=== PATIENT | male | born 1950 | race Caucasian/White ===

== ENCOUNTER 2017-01-27 19:08 | Inpatient (IN) | payer MEDICARE, MEDICAID ==
--- NOTE | 2017-01-27 19:34 | ED Physician Chart ---
Chief Complaint/HPI - Patient Information Date Seen:: 01/27/17 Time Seen:: 19:20 Chief Complaint:: suicidal ideation History of Present Illness:: Patient is a resident of a snf facility. He is apparently expressed a desire to commit suicide several times. [facility] Histor[facility]:: Patient Review:: Nurse's Note Reviewed, Transfer documents Reviewed Review of Systems - Review of Systems General/Constitutional: No fever, No chills Skin: No skin lesions Head: No headache Eyes: No loss of vision ENT: No earache Neck: No neck pain Cardio Vascular: No chest pain, No palpitations Pulmonary: No SOB GI: No nausea, No vomiting G/U: No dysuria, No frequency Musculoskeletal: No bone or joint pain Endocrine: No polyuria Psychiatric: Prior psych history, Depression Past Medical History - Past Medical History Past Medical History: HTN, DM, CHF, Asthma/COPD, CVA/TIA, PUD/GERD, Dementia, Other (anxiety; status post pneumonia; major depression; psychosis; anxiety) Family History: Other (not available) Social History: Non Smoker, No Alcohol Surgical History: other (right hip replacement) Psychiatricy History: Depression, Dementia Medication: Reviewed Family Medical History - Family Member Mother History Unknown: Yes Physical Exam - Physical Examination General/Constitutional: Well-developed, well-nourished, Alert, No distress, Non- toxic appearing Other Gen/Cons comments:: Alert and oriented to the coorect year only Head: Atraumatic Eyes: Lids, conjuctiva normal, PERRL Skin: Nl inspection, No rash, No skin lesions, No ecchymosis ENMT: External ears, nose nl, Nasal exam nl, Lips, teeth, gums nl Other ENMT comments:: Edentulous with lower dentures Neck: No nuchal rigidity Respiratory: Nl effort/Exclusion, Clear to Auscultation, No Wheeze/Rhonchi/Rales Cardio Vascular: RRR, No murmur, gallop, rubs GI: No tenderness/rebounding/guarding, No organomegaly, Normal BS's Other GI comments:: Abdomen distended; no hernia present : No CVA tenderness Extremities: Normal digits & nails Other Neuro/Psych comments:: Left-sided paralysis Labs/Radiology/EKG Results - Lab Results Results: Laboratory Results - last 24 hr 01/27/17 01/27/17 19:43 19:43 WBC 11.3 H RBC 5.11 Hgb 14.8 Hct 45.9 MCV 90.0 MCH 29.0 MCHC Differential 32.2 RDW 13.5 Plt Count 222 MPV 7.6 Neutrophils % 69.1 Lymphocytes % 24.6 Monocytes % 5.3 Eosinophils % 0.8 Basophils % 0.2 Sodium 135 L Potassium 4.1 Chloride 100 Carbon Dioxide 29.8 Anion Gap 9.3 BUN 18 Creatinine 0.8 Est GFR ( Amer) > 60.0 Est GFR (Non-Af Amer) > 60.0 BUN/Creatinine Ratio 22.5 Glucose 290 H Calcium 9.5 Total Bilirubin 0.5 AST 10 L ALT 12 Alkaline Phosphatase 62 Total Protein 6.2 Albumin 3.7 L Globulin 2.5 Albumin/Globulin Ratio 1.5 Laboratory Results - last 24 hr 01/27/17 01/27/17 19:43 19:43 WBC 11.3 H RBC 5.11 Hgb 14.8 Hct 45.9 MCV 90.0 MCH 29.0 MCHC Differential 32.2 RDW 13.5 Plt Count 222 MPV 7.6 Neutrophils % 69.1 Lymphocytes % 24.6 Monocytes % 5.3 Eosinophils % 0.8 Basophils % 0.2 Sodium 135 L Potassium 4.1 Chloride 100 Carbon Dioxide 29.8 Anion Gap 9.3 BUN 18 Creatinine 0.8 Est GFR ( Amer) > 60.0 Est GFR (Non-Af Amer) > 60.0 BUN/Creatinine Ratio 22.5 Glucose 290 H Calcium 9.5 Total Bilirubin 0.5 AST 10 L ALT 12 Alkaline Phosphatase 62 Total Protein 6.2 Albumin 3.7 L Globulin 2.5 Albumin/Globulin Ratio 1.5 - Radiology Results Results: CXR: cardiomegaly; no infiltrate - EKG Interpretations Rate & Rhythm: NSR rate 64 [place]: normal Comments:: RBBB Assessment - Assessment General Assessment: Etiology of the patient's leukocytosis is uncertain ED Septic Shock - . Is Septic Shock (SBP<90, OR Lactate>4 mmol\L) present?: No Reassessment (Disposition) - Reassessment Reassessment Condition:: Unchanged - Diagnosis Diagnosis:: suicidal ideation; diabetes; hyperglycemia; leukocytosis - Patient Disposition Admitted to:: [facility] Admitting Medical Physician:: Prieto Linares Admitting Psych Physician:: Nakul Curry Condition at Disposition:: Stable, Unchanged
[2017-01-27 19:52] LABS: % BASOPHILS 0.2 % (0.0-2.0); % EOSINOPHILS 0.8 % (0.0-5.0); % LYMPHOCYTES 24.6 % (20.0-50.0); % MONOCYTES 5.3 % (2.0-10.0); % NEUTROPHILS 69.1 % (40.0-80.0); HEMATOCRIT 45.9 % (39.0-49.0); HEMOGLOBIN 14.8 gm/dL (12.6-17.4); MEAN CORPUSCULAR HGB CONC 32.2 pg (28.0-36.0); MEAN PLATELET VOLUME 7.6 fl; NEUTROPHILE ABSOLUTE 7.8 Th/cmm (1.8-8.0); PLATELET COUNT 222 Th/cmm (150-400); RED BLOOD COUNT 5.11 Mil/cmm (3.80-5.80); RED CELL DISTRIBUTION WIDTH 13.5 % (11.5-20.0); WHITE BLOOD COUNT 11.3 Th/cmm (4.8-10.8)
[2017-01-27 20:08] LABS: ALB/GLOB RATIO 1.5 (1.0-1.8); ALKALINE PHOSPHATASE 62 U/L (34-104); ANION GAP 9.3 (7.0-16.0); BILIRUBIN,TOTAL 0.5 mg/dL (0.3-1.0); BUN - UREA NITROGEN 18 mg/dL (7-25); BUN/CREATININE RATIO 22.5; CALCIUM SERUM 9.5 mg/dL (8.6-10.3); CARBON DIOXIDE 29.8 mEq/L (21.0-31.0); CHLORIDE 100 mEq/L (98-107); CREATININE - SERUM 0.8 mg/dL (0.7-1.3); GLUCOSE 290 mg/dL (70-105); POTASSIUM SERUM 4.1 mEq/L (3.5-5.1); SGOT 10 U/L (13-39); SGPT/ALT 12 U/L (7-52); SODIUM SERUM 135 mEq/L (136-145)
[2017-01-27 21:47] LABS: URINE BILIRUBIN NEGATIVE (NEGATIVE); URINE COLOR YELLOW; URINE GLUCOSE (UA) 500 mg/dL (NEGATIVE); URINE KETONE TRACE mg/dL (NEGATIVE)
[2017-01-27 21:48] LABS: URINE BLOOD NEGATIVE (NEGATIVE); URINE PH 6.5; URINE PROTEIN NEGATIVE (NEGATIVE); URINE RBC NONE SEEN /hpf (0-5); URINE UROBILINOGEN 0.2 E.U./dL (0.2 - 1.0)
[2017-01-27 21:49] LABS: URINE AMORPHOUS SEDIMENT FEW URATES (NONE SEEN); URINE BACTERIA FEW /hpf (NONE SEEN); URINE EPITHELIAL CELLS OCCASIONAL /lpf (FEW)
[2017-01-27] MEDS ORDERED: Albuterol Nebulizer 2.5mg/3mL HHN PRN (23:22)
[2017-01-27] MEDS ORDERED: Hydrocodone/APAP 10 mg/325 mg Tab PO PRN (23:22)
[2017-01-27] MEDS ORDERED: Ipratropium Neb 0.5 mg/2.5 mL UD HHN PRN (23:22)
[2017-01-27 23:27] VITALS: BP 131/84
[2017-01-27] MEDS: Ipratropium Neb 0.5 mg/2.5 mL UD HHN SCH (23:56)
[2017-01-28] MEDS: INSULIN ASPART SLIDING SCALE 100 UNITS/ML UNIT SUBQ SCH ×4 (06:43→20:59)
[2017-01-28] MEDS: Ipratropium Neb 0.5 mg/2.5 mL UD HHN SCH ×3 (07:31→18:47)
[2017-01-28] MEDS: Multivitamin w/ Minerals Tab PO SCH (09:25)
[2017-01-28] MEDS: Pantoprazole 40 mg EC Tab PO SCH (09:25)
[2017-01-28] MEDS: Lactobacillus Rhamnosus 10 Billion CFU Capsule PO SCH (09:25)
--- NOTE | 2017-01-28 10:04 | Diagnostic Imaging Report ---
CHEST X-RAY: AP view INDICATION: CHF COMPARISON: None FINDINGS: Small left effusion is noted. No evidence of gabrielle CHF. Increased left basal lung markings are noted. Mild cardiomegaly is noted. Degenerative changes of the spine and shoulders are noted. IMPRESSION: Small left effusion. Increased left basal lung markings are seen favoring atelectasis versus chronic changes. Infiltrate is less likely. No evidence of gabrielle CHF. Cardiomegaly and atherosclerotic vascular disease.
[2017-01-28] MEDS: Atorvastatin Calcium 10 MG TAB PO SCH (20:52)
[2017-01-28] MEDS: Insulin Detemir 100 units/mL 10mL Vial SUBQ SCH (21:00)
[2017-01-29] MEDS: Ipratropium Neb 0.5 mg/2.5 mL UD HHN SCH ×4 (00:30→18:38)
--- NOTE | 2017-01-29 01:16 | History & Physical ---
ADMIT DATE: 01/28/2017 HISTORY OF PRESENT ILLNESS: The patient is a 66-year-old male with history of diabetes mellitus, hypertension, dementia, hyperlipidemia, was transferred [facility] to [facility] with acute confusion, agitation, evaluated by the ER physician. Initial workup significant for psychosis, admitted to [facility] for more evaluation and treatment. Dr. Curry consulted on the case. The patient is a good historian. PAST MEDICAL HISTORY: Significant for hypertension, diabetes mellitus, hyperlipidemia and dementia. PAST SURGICAL HISTORY: No surgeries. ALLERGIES: None. MEDICATIONS: Follow admission reconciliation. SOCIAL HISTORY: No smoking, alcohol or drugs. FAMILY HISTORY: Noncontributory. REVIEW OF SYSTEMS: RENAL SYSTEM: No history of chronic renal disorder. CARDIOVASCULAR SYSTEM: He has history of hypertension. ENDOCRINE SYSTEM: History of diabetes mellitus. GASTROINTESTINAL SYSTEM: No upper or lower gastrointestinal bleed. NEUROLOGICAL SYSTEM: History of dementia. PHYSICAL EXAMINATION: GENERAL: He is awake, alert, not fully oriented. VITAL SIGNS: Temperature 98, heart rate 78, blood pressure 132/70. HEENT: Normocephalic. Pupils reacting to light and accommodation. Sclerae clear. NECK: Supple. Negative for lymphadenopathy, JVD or bruit. CHEST: Bilaterally normal. No rhonchi or wheezing. HEART: S1, S2 normal. No murmur or gallop. ABDOMEN: Soft, bowel sounds positive. EXTREMITIES: No edema. NEUROLOGIC: Awake, not fully oriented. No focal motor or sensory deficits. Cranial nerves 2-12 is intact. ASSESSMENT: 1. Diabetes mellitus. 2. Hypertension. 3. Hyperlipidemia. 4. Dementia. PLAN: The patient was admitted to the hospital under Dr. Curry's service. ____ PROBLEMS TO BE ATTENDED DURING HOSPITALIZATION: Dementia, psychosis. MEDICAL PROBLEMS ____, diabetes mellitus, hypertension, hypothyroidism. The patient is medically stable for activity. Thank you, Dr. Curry for asking me to see the patient. JOB# [id number]
--- NOTE | 2017-01-29 08:11 | Psychosocial Evaluation ---
DATE OF SERVICE: 01/28/2017 JUSTIFICATION FOR HOSPITALIZATION: The patient is brought in on a 5150 hold, aggressive, agitated, making suicidal statements. CHIEF COMPLAINT: "I told my brother I wanted to kill myself." HISTORY OF PRESENT ILLNESS: A 66-year-old male with history of depression, PTSD, brought in because he was aggressive towards staff, making suicidal statements. The patient with cognitive decline, acting strange at the retirement, agitated, verbal towards staff. Staff could not control his behaviors. The patient attests to depression, states he feels sad, upset, angry, alludes to significant trauma history PAST PSYCHIATRIC HISTORY: Cognitive decline, depression, PTSD. FAMILY HISTORY: Noncontributory. SOCIAL HISTORY: The patient was born in [place], 4 times, now . He does not have any idea how many kids he has. 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 MEDICATIONS: Reviewed. MENTAL STATUS EXAMINATION: Stated age, unkempt. Speech within normal limits, appearing odd. Mood "okay." Affect upset. Thought processes were somewhat disoriented. The patient attests to SI, no HI. No overt psychotic symptoms. Poor insight, poor judgment, poor impulse control. PROVISIONAL DIAGNOSES: Major depression, recurrent; post-traumatic stress disorder; anxiety, unspecified; likely dementia. MEDICAL: Please see full H and P. The patient under the care of Dr. Linares ESTIMATED LENGTH OF STAY: 7-10 days. ASSESSMENT: The patient requiring inpatient hospitalization, suicidal, upset, depressed, combative at the retirement. PLAN: We will continue to monitor and titrate medications. TREATMENT PLAN: Includes group as well as milieu therapy. CONDITIONS FOR DISCHARGE: Improved mood, improved affect, cessation of any SI, better control of any aggressive symptoms. [facility]# [id number] [facility]
[2017-01-29] MEDS: Multivitamin w/ Minerals Tab PO SCH (09:01)
[2017-01-29] MEDS: Lactobacillus Rhamnosus 10 Billion CFU Capsule PO SCH (09:01)
[2017-01-29] MEDS: Pantoprazole 40 mg EC Tab PO SCH (09:03)
[2017-01-29] MEDS: INSULIN ASPART SLIDING SCALE 100 UNITS/ML UNIT SUBQ SCH ×4 (09:09→20:53)
--- NOTE | 2017-01-29 19:05 | Progress Notes ---
DATE: 01/29/2017 SUBJECTIVE: The patient was seen, chart reviewed, and discussed with staff. The patient remains angry, upset. 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 ASSESSMENT: The patient remains symptomatic, telling bizarre stories, angry, upset, depressed, was making suicidal statements. PLAN: The patient is not safe for discharge. We will continue to monitor and titrate medications. Current medications were reviewed. He is currently on a low dose Risperdal. We will increase Risperdal today to 1 mg. We will continue to monitor closely. [facility]# [id number]
[2017-01-29] MEDS: Atorvastatin Calcium 10 MG TAB PO SCH (20:32)
[2017-01-29] MEDS: Insulin Detemir 100 units/mL 10mL Vial SUBQ SCH (20:53)
--- NOTE | 2017-01-29 21:38 | Admit Criteria Form ---
Admit Criteria Forms - Admit Criteria Diagnosis: PSYCHIATRIC DISORDERS (Place 'X' for any and all applicable criteria): Ongoing inpatient care may be needed for 1 or more of the following(1)(2)(3)(4)( 6)(7)(8): [X ]I. Danger to self or others not manageable at lower level of care. [ ]II. Grave disability (eg, inability to perform self care necessary at lower level of care) [ ]III. Agitation or inappropriate behavior interfering with care for primary condition (eg, attempting to discontinue lines or drains prematurely, unable to cooperate with respiratory care) [ ]IV. Severe disability or disorder indicated by ALL of the following: [ ]a) Severe behavioral health disorder-related symptoms or condition indicated by 1 or more of the following: [ ]i) Severe problem with cognition, memory, judgment, or impulse control [ ]ii) Severe clinical manifestations (eg, hallucinations, delusions, other acute psychotic symptoms, jeaneth, extreme agitation or anxiety) [ ]b) Patient management at lower level of care is not feasible until acute intervention or modification is initiated. Extended stay beyond goal length of stay for the primary condition may be needed until ALLof the following are present(1)(2)(3)(4)7)06)(23): [ ]a) Danger to self or others is absent or manageable at lower level of care [ ]b) Behavior crisis management, including physical or chemical restraints, is required and is not available at a lower level of care. [ ]c) Behavioral symptoms (e.g., agitation, somnolence, inappropriate behavior) are present, and are not manageable at a lower level of care. [ ]d) Patient cannot understand follow-up treatment and crisis plan. [ ]e) Provider and supports are sufficiently available at lower level of care. [ ]f) Patient can participate (e.g., verify absence of plan for harm) and is in needed of monitoring. The original [facility] [employer] content created by [facility] has been revised. The portions of the content which have been revised are identified through the use of italic text or in bold, and [facility] has neither reviewed nor approved the modified material. All other unmodified content is copyright [facility]. Please see references footnoted in the original [facility] edition 2017 Admit Criteria Met?: Yes
[2017-01-30] MEDS: Ipratropium Neb 0.5 mg/2.5 mL UD HHN SCH ×4 (00:56→18:30)
[2017-01-30] MEDS: INSULIN ASPART SLIDING SCALE 100 UNITS/ML UNIT SUBQ SCH ×4 (06:42→20:38)
[2017-01-30] MEDS: Lactobacillus Rhamnosus 10 Billion CFU Capsule PO SCH (10:20)
[2017-01-30] MEDS: Pantoprazole 40 mg EC Tab PO SCH (10:21)
[2017-01-30] MEDS: Multivitamin w/ Minerals Tab PO SCH (10:21)
[2017-01-30] MEDS: Atorvastatin Calcium 10 MG TAB PO SCH (20:27)
[2017-01-30] MEDS: Insulin Detemir 100 units/mL 10mL Vial SUBQ SCH (20:37)
--- NOTE | 2017-01-30 21:02 | Progress Notes ---
DATE: 01/30/2017 SUBJECTIVE: The patient was seen, chart reviewed, and discussed with staff. The patient remains upset, symptomatic, irritable, still with some confusion, keeps asking and ruminating about [facility], wants to go back to [facility]. Seems to be improving. Suicidal ideations seem to be decreasing. He has not mentioned any suicidal thoughts, but he remains loud, sometimes agitated, sometimes verbally aggressive, continued safety concerns, continued concerns about his ability to function at a lower level of care at [facility]. He seems to be sleeping well, eating well, and taking his medications. ASSESSMENT: The patient with some improvement noted, but remains symptomatic, still agitated, yelling, verbally aggressive, upset, and depressed. PLAN: We will continue to monitor given the patient's confusional state and his agitation. We will continue inpatient hospitalization. We add Namenda to his regimen as well. [facility]# [id number]
[2017-01-31] MEDS: Ipratropium Neb 0.5 mg/2.5 mL UD HHN SCH ×3 (06:47→18:50)
[2017-01-31] MEDS: INSULIN ASPART SLIDING SCALE 100 UNITS/ML UNIT SUBQ SCH ×4 (07:04→20:55)
[2017-01-31] MEDS ORDERED: Insulin Detemir 100 units/mL 10mL Vial SUBQ SCH (09:00)
[2017-01-31] MEDS: Lactobacillus Rhamnosus 10 Billion CFU Capsule PO SCH (10:01)
[2017-01-31] MEDS: Multivitamin w/ Minerals Tab PO SCH (10:02)
[2017-01-31] MEDS: Pantoprazole 40 mg EC Tab PO SCH (10:02)
[2017-01-31] MEDS: Atorvastatin Calcium 10 MG TAB PO SCH (20:46)
[2017-01-31] MEDS: Insulin Detemir 100 units/mL 10mL Vial SUBQ SCH (20:57)
[2017-02-01] MEDS: Ipratropium Neb 0.5 mg/2.5 mL UD HHN SCH ×4 (01:23→19:34)
--- NOTE | 2017-02-01 04:24 | Progress Notes ---
DATE: 01/31/2017 SUBJECTIVE: The patient seen, chart reviewed, discussed with staff. The patient remains upset, irritable, still with some confusion, ____. He has been taking medications, struggling with physical therapy. Eating fairly well. Sleeping fairly well, seems to be getting along better with staff and peers, still verbally aggressive at times, taking his medications. No side effects. ASSESSMENT: The patient is calmer, more cooperative, still with safety concerns, however. Medications reviewed, recent to increase the Risperdal seems to be tolerating well. PLAN: We will continue to monitor and followup. [facility]# [id number]
[2017-02-01] MEDS: INSULIN ASPART SLIDING SCALE 100 UNITS/ML UNIT SUBQ SCH ×4 (06:42→21:03)
[2017-02-01] MEDS: Lactobacillus Rhamnosus 10 Billion CFU Capsule PO SCH (10:22)
[2017-02-01] MEDS: Pantoprazole 40 mg EC Tab PO SCH (10:22)
[2017-02-01] MEDS: Multivitamin w/ Minerals Tab PO SCH (10:23)
[2017-02-01] MEDS: Insulin Detemir 100 units/mL 10mL Vial SUBQ SCH (21:01)
[2017-02-01] MEDS: Atorvastatin Calcium 10 MG TAB PO SCH (21:01)
[2017-02-02] MEDS: Ipratropium Neb 0.5 mg/2.5 mL UD HHN SCH ×2 (01:16→07:33)
[2017-02-02] MEDS: INSULIN ASPART SLIDING SCALE 100 UNITS/ML UNIT SUBQ SCH ×2 (07:54→12:12)
[2017-02-02] MEDS: Multivitamin w/ Minerals Tab PO SCH (08:50)
[2017-02-02] MEDS: Pantoprazole 40 mg EC Tab PO SCH (08:50)
[2017-02-02] MEDS: Lactobacillus Rhamnosus 10 Billion CFU Capsule PO SCH (08:50)
[2017-02-02] MEDS ORDERED: Ipratropium Neb 0.5 mg/2.5 mL UD HHN SCH (13:00)
== END 2017-02-02 15:15 | disposition home or self-care (01) | DRG 885 ==
LOC: ER 19:08 → GERO 22:02
PROVIDERS: ADMIT Psychiatry & Neurology Psychiatry; ATTEND Psychiatry & Neurology Psychiatry
DX: F33.9 Major depressive disorder, recurrent, unspecified (principal); R45.851 Suicidal ideations; F03.90 Unspecified dementia, unspecified severity, without behavioral disturbance, psychotic disturbance, mood disturbance, and anxiety; I11.0 Hypertensive heart disease with heart failure; I50.9 Heart failure, unspecified; F43.10 Post-traumatic stress disorder, unspecified; F41.9 Anxiety disorder, unspecified; E78.5 Hyperlipidemia, unspecified; J44.9 Chronic obstructive pulmonary disease, unspecified; K21.9 Gastro-esophageal reflux disease without esophagitis; F29 Unspecified psychosis not due to a substance or known physiological condition; E11.65 Type 2 diabetes mellitus with hyperglycemia; D72.829 Elevated white blood cell count, unspecified; E03.9 Hypothyroidism, unspecified; Z96.641 Presence of right artificial hip joint; Z86.73 Personal history of transient ischemic attack (TIA), and cerebral infarction without residual deficits; Z87.01 Personal history of pneumonia (recurrent)
CPT/HCPCS: 36415-UA; 71010-TC; 80053-TC; 81001-TC; 82948-90; 83036-90; 84443-TC; 85025-TC; 86592-TC; 90779; 93005; 94640; 94760; 97530; J1815; X3401; X3904; Z7610

== ENCOUNTER 2019-05-04 18:55 | Inpatient (IN) | payer MEDICARE, MEDICAID ==
[2019-05-04 22:37] VITALS: BP 101/62
[2019-05-04] MEDS ORDERED: Magnesium Hydroxide (MOM) 30 mL UDC PO PRN (22:58)
[2019-05-04] MEDS ORDERED: Maalox 30 mL Cup PO PRN (22:58)
[2019-05-05] MEDS: Multivitamin Tab PO SCH (08:26)
[2019-05-05] MEDS ORDERED: GLUCAGON HCl 1 MG KIT IM PRN (20:25)
[2019-05-05] MEDS ORDERED: Dextrose 50% 50 mL Abboject IVP PRN (20:25)
[2019-05-05] MEDS: INSULIN LISPRO SLIDING SCALE 100 UNITS/ML UNIT SUBQ SCH (21:00)
[2019-05-05] MEDS: Carbidopa/Levodopa 10/100 mg Tab PO SCH (21:36)
--- NOTE | 2019-05-06 06:03 | Consultation ---
DATE OF CONSULTATION: 05/05/2019 INITIAL PSYCHIATRIC EVALUATION, Covering for Dr. Curry. HISTORY OF PRESENT ILLNESS: A 68-year-old male with an unknown previous psychiatric intervention, history of dementia, was brought in here after the patient was sexually inappropriate, increased agitated and yelling out. Today on [id number] evaluation, the patient ____ very uncooperative with the interview, does not give much information, reported he does not know why he is here. His neighbor got mad at him, but does not want to elaborate what happened, becomes very angry on further questioning, The patient is irritable, agitated state, limited historian overall. ALLERGIES TO MEDICATIONS: NKDA. CURRENT MEDICATIONS: Insulin, lactobacillus, magnesium, Namenda, metoprolol, multivitamins, Protonix, Aricept 5 mg twice a day, Depakote, Cranberry, Coreg. PAST PSYCHIATRIC HISTORY: Dementia. PAST MEDICAL HISTORY: Diabetes, AFib, type 2 diabetes, status post previous hip surgery. LEGAL HISTORY: Denied. MENTAL STATUS EXAMINATION: He is in bed, irritable, refusing to be interviewed with further questions, poor historian overall, at times suspicious. Poor insight, poor judgment, refused to answer questions in regards to immediate, recent and remote memory. ASSESSMENT AND PLAN: A 68-year-old male with history of dementia, brought in here after placed on a 5150 ____ for being physically and sexually aggressive. We will continue with Namenda at 10 mg once a day, Aricept. We will obtain more collateral baseline information and assess the need for a mood stabilizer/antipsychotic. [facility]# [id number]
[2019-05-06] MEDS: Pantoprazole 40 mg EC Tab PO SCH (06:45)
[2019-05-06] MEDS: INSULIN LISPRO SLIDING SCALE 100 UNITS/ML UNIT SUBQ SCH ×4 (07:02→20:55)
[2019-05-06] MEDS: Multivitamin Tab PO SCH (08:18)
[2019-05-06] MEDS: Carbidopa/Levodopa 10/100 mg Tab PO SCH ×4 (08:18→20:55)
[2019-05-06] MEDS: Apixaban 5 MG TABLET PO SCH ×2 (08:18→16:17)
--- NOTE | 2019-05-06 15:58 | History & Physical ---
ADMIT DATE: 05/04/2019 CHIEF COMPLAINT: Agitation. HISTORY OF PRESENT ILLNESS: A 68-year-old male with past medical history significant for dementia and parkinsonism, who presents with agitation and aggressive behavior. The patient was sent initially to [facility] for medical clearance. He was found to have atrial fibrillation with rapid ventricular rate and admitted for further treatment and care. The patient was sent to psychiatric facility once medically cleared. The patient is resting in bed. He is awake and alert. He is very [facility]. Denies any medical complaints. The patient is a poor historian. PAST MEDICAL HISTORY: The patient has history of atrial fibrillation, CVA with left hemiplegia, diabetes mellitus, dementia, hyperlipidemia, parkinsonism. MEDICATIONS: As per reconciliation. ALLERGIES: No known drug allergies. SOCIAL HISTORY: No tobacco, alcohol or illicit drug use. The patient is a resident of [facility]. FAMILY HISTORY: Noncontributory. REVIEW OF SYSTEMS: IMMUNOLOGIC: No recurrent infection. CARDIOVASCULAR: No heart disease or hypertension. GASTROINTESTINAL: No nausea, vomiting or diarrhea. ENDOCRINE: The patient is diabetic. No thyroid disorder. NEUROLOGIC: The patient has had a stroke. No seizure. HEMATOLOGIC: No bleeding or clotting disorder. PHYSICAL EXAMINATION: GENERAL: The patient is awake and alert, in no acute distress. VITAL SIGNS: Temperature 98.0, pulse 105, respirations 20, blood pressure 120/61. HEENT: Pupils equally round, anicteric sclerae. NECK: Supple. No JVD, mass or bruit. LUNGS: Clear to auscultation. HEART: S1, S2, regular rate and rhythm. ABDOMEN: Soft, nontender, positive bowel sounds. EXTREMITIES: No clubbing, cyanosis. The patient has trace edema to left lower extremity. NEUROLOGIC: The patient has left-sided hemiplegia. ASSESSMENT: 1. Psychosis. 2. Dementia. 3. Diabetes mellitus. 4. Cerebrovascular accident. 5. Chronic atrial fibrillation. 6. Parkinsonism. 7. Hyperlipidemia. PLAN: The patient has been admitted to the Psychiatry Service for further treatment and evaluation. The patient is to continue his medications as per transfer orders. We will monitor the patient's blood pressure and blood sugar as well as heart rate. The patient is on Lopressor for rate control. He is medically cleared to participate in activity and can return back to [facility] once cleared from a psychiatric point of view. [facility]# [id number]
--- NOTE | 2019-05-06 21:50 | Progress Notes ---
DATE: 05/06/2019 SUBJECTIVE: The patient was seen and evaluated. The patient's chart reviewed. This is a psychiatric followup note. Covering for Dr. Curry. Overnight nursing staff reported the patient has intermittent yelling, screaming. Today on [id number] evaluation, the patient continues to perseverate about going home that the clothing are going to be stolen. After I discussed with the patient, further monitoring needed, he becomes very irritable and started yelling and screaming nonsensical statements. MENTAL STATUS EXAMINATION: Irritable, agitated, impulsive, unpredictable and verbally aggressive. ASSESSMENT AND PLAN: The patient is a 68-year-old male with a history of dementia with behavior disturbances, who has dementia and cognitive impairment, impairs the ability to provide the ability to rationally understand his emotions resulting in aggressive behavior. He is currently on Aricept 10 mg a day and also Namenda 10 mg, awaiting labs, assessing the patient's renal function prior to increasing the Namenda, as they would also help alleviate the disturbances. JOB# [id number]
[2019-05-07] MEDS: INSULIN LISPRO SLIDING SCALE 100 UNITS/ML UNIT SUBQ SCH ×4 (06:37→21:33)
[2019-05-07] MEDS: Pantoprazole 40 mg EC Tab PO SCH (06:38)
[2019-05-07] MEDS: Multivitamin Tab PO SCH (08:38)
[2019-05-07] MEDS: Apixaban 5 MG TABLET PO SCH ×2 (08:39→17:14)
[2019-05-07] MEDS: Carbidopa/Levodopa 10/100 mg Tab PO SCH ×4 (08:39→21:33)
--- NOTE | 2019-05-07 21:24 | General Progress Note ---
Subjective - Review of Systems Service Date: 05/07/19 Subjective: RESTING COMFORTABLY IN BED NO DISTRESS Objective - Results Recent Labs: Laboratory Last Values POC Glucose 125 MG/DL (70 - 105) H 05/07/19 20:05 - Physical Exam Vitals and I&O: Vital Signs Temp 97.6 F 05/07/19 20:08 Pulse 103 05/07/19 20:08 Resp 20 05/07/19 20:08 BP 124/58 05/07/19 20:08 Pulse Ox 96 05/07/19 20:08 Intake & Output 05/07/19 05/07/19 05/08/19 06:59 18:59 06:59 Intake Total 300 800 240 Output Total 1 1 Balance 299 800 239 Intake: Oral 300 800 240 Output: Urine/Stool Mix 1 1 Other: # Voids 1 3 1 # Bowel Movements 2 0 1 Stool Characteristics Soft Soft Active Medications: Current Medications Acetaminophen (Tylenol) 650 mg PO Q4HR PRN PRN Reason: Mild Pain / Temp above 100 Stop: 07/03/19 22:57 Last Admin: 05/07/19 01:12 Dose: 650 mg Al Hydrox/Mg Hydrox/Simethicone (Maalox) 30 ml PO Q4H PRN PRN Reason: GI DISTRESS Stop: 07/03/19 22:57 Atorvastatin Calcium (Lipitor) 40 mg PO HS [facility]; Protocol Stop: 07/04/19 20:59 Last Admin: 05/06/19 20:54 Dose: 40 mg Carbidopa/Levodopa (Sinemet 10 Mg-100 Mg) 1 tab PO QID [facility] Stop: 07/04/19 20:59 Last Admin: 05/07/19 17:15 Dose: 1 tab Dextrose (D50w) 50 ml IVP PRN PRN PRN Reason: Blood Glucose less than 70 Stop: 07/04/19 20:24 Dextrose (Glutose 40%) 18.75 gm PO PRN PRN PRN Reason: Blood Glucose less than 70 Stop: 07/04/19 20:24 Divalproex Sodium (Depakote Dr) 500 mg PO BID [facility]; Protocol Stop: 07/06/19 16:59 Last Admin: 05/07/19 17:14 Dose: 500 mg Donepezil HCl (Aricept) 5 mg PO BID [facility] Stop: 07/04/19 08:59 Last Admin: 05/07/19 17:15 Dose: 5 mg Gabapentin (Neurontin) 300 mg PO BID MAR[facility]NA Stop: 07/05/19 08:59 Last Admin: 05/07/19 17:14 Dose: 300 mg Glucagon (Glucagen) 1 mg IM PRN PRN PRN Reason: Blood Glucose less than 70 Stop: 07/04/19 20:24 Insulin Human Lispro (Humalog Insulin Sliding Scale) 0 units SUBQ ACHS MARLENA; Protocol Stop: 07/04/19 20:59 Last Admin: 05/07/19 16:57 Dose: Not Given Lorazepam (Ativan) 0.5 mg PO Q4H PRN; Protocol PRN Reason: Anxiety Stop: 07/03/19 22:57 Magnesium Hydroxide (Milk Of Magnesia) 30 ml PO HS PRN PRN Reason: Constipation Magnesium Oxide (Mag-Oxide) 400 mg PO BID MARLENA Stop: 07/05/19 08:59 Last Admin: 05/07/19 17:15 Dose: 400 mg Memantine (Namenda) 10 mg PO HS MARLENA Stop: 07/04/19 20:59 Last Admin: 05/06/19 20:56 Dose: 10 mg Metoprolol Tartrate (Lopressor) 25 mg PO BID MARLENA Stop: 07/05/19 08:59 Last Admin: 05/07/19 17:15 Dose: 25 mg Multivitamins/Vitamin C (Theragran) 1 tab PO DAILY MARLENA Stop: 07/04/19 08:59 Last Admin: 05/07/19 08:38 Dose: 1 tab Pantoprazole Sodium (Protonix) 40 mg PO QDAC [facility] Stop: 07/05/19 07:29 Last Admin: 05/07/19 06:38 Dose: 40 mg Zolpidem Tartrate (Ambien) 5 mg PO HS PRN PRN Reason: Insomnia Stop: 07/03/19 22:57 Last Admin: 05/06/19 21:01 Dose: 5 mg General: No acute distress HEENT: PERRLA, EOMI Neck: Supple, JVD, Thyromegaly Cardiovascular: Regular rate, Normal S1, Normal S2 Lungs: Clear to auscultation Abdomen: Bowel sounds, Soft Assessment/Plan - Assessment Assessment: DM CVA A.FIB DEMENTIA - Plan Plan: CONTINUE CURRENT TREATMENT
--- NOTE | 2019-05-08 02:17 | Progress Notes ---
DATE: 05/07/2019 SUBJECTIVE: A 68-year-old male who is here in the hospital with dementia. The patient was sexually inappropriate, increased agitation, yelling behaviors, uncooperative, yelling at me, telling me that he wants to be discharged immediately, not really even letting me interview other patients, yelling at me the whole time, perseverative, very impulsive, unpredictable. ASSESSMENT: The patient demanding, loud, difficult to really even interview him, ruminative. PLAN: We will continue to monitor. The patient may tolerate a higher dosing of Depakote. JOB# [id number]
[2019-05-08] MEDS: INSULIN LISPRO SLIDING SCALE 100 UNITS/ML UNIT SUBQ SCH ×4 (06:35→20:39)
[2019-05-08] MEDS: Pantoprazole 40 mg EC Tab PO SCH (06:35)
[2019-05-08] MEDS: Apixaban 5 MG TABLET PO SCH ×2 (09:31→17:26)
[2019-05-08] MEDS: Carbidopa/Levodopa 10/100 mg Tab PO SCH ×4 (09:31→20:39)
[2019-05-08] MEDS: Multivitamin Tab PO SCH (09:31)
--- NOTE | 2019-05-08 22:03 | General Progress Note ---
Subjective - Review of Systems Service Date: 05/08/19 Subjective: RESTING COMFORTABLY IN BED NO DISTRESS Objective - Results Recent Labs: Laboratory Last Values POC Glucose 94 MG/DL (70 - 105) 05/08/19 20:12 - Physical Exam Vitals and I&O: Vital Signs Temp 98.1 F 05/08/19 19:45 Pulse 78 05/08/19 19:45 Resp 19 05/08/19 19:45 BP 105/70 05/08/19 19:45 Pulse Ox 96 05/08/19 19:45 Intake & Output 05/08/19 05/08/19 05/09/19 06:59 18:59 06:59 Intake Total 300 240 Output Total 1 Balance 299 240 Intake: Oral 300 240 Output: Urine/Stool Mix 1 Other: # Voids 1 3 2 # Bowel Movements 1 3 Stool Characteristics Soft Liquid Active Medications: Current Medications Acetaminophen (Tylenol) 650 mg PO Q4HR PRN PRN Reason: Mild Pain / Temp above 100 Stop: 07/03/19 22:57 Last Admin: 05/07/19 01:12 Dose: 650 mg Al Hydrox/Mg Hydrox/Simethicone (Maalox) 30 ml PO Q4H PRN PRN Reason: GI DISTRESS Stop: 07/03/19 22:57 Atorvastatin Calcium (Lipitor) 40 mg PO HS [facility]; Protocol Stop: 07/04/19 20:59 Last Admin: 05/08/19 20:39 Dose: 40 mg Carbidopa/Levodopa (Sinemet 10 Mg-100 Mg) 1 tab PO QID [facility] Stop: 07/04/19 20:59 Last Admin: 05/08/19 20:39 Dose: 1 tab Dextrose (Glutose 40%) 18.75 gm PO PRN PRN PRN Reason: Blood Glucose less than 70 Stop: 07/04/19 20:24 Divalproex Sodium (Depakote Dr) 500 mg PO BID [facility]; Protocol Stop: 07/06/19 16:59 Last Admin: 05/08/19 17:26 Dose: 500 mg Donepezil HCl (Aricept) 5 mg PO BID [facility] Stop: 07/04/19 08:59 Last Admin: 05/08/19 17:26 Dose: 5 mg Gabapentin (Neurontin) 300 mg PO BID [facility] Stop: 07/05/19 08:59 Last Admin: 05/08/19 17:26 Dose: 300 mg Glucagon (Glucagen) 1 mg IM PRN PRN PRN Reason: Blood Glucose less than 70 Stop: 07/04/19 20:24 Insulin Human Lispro (Humalog Insulin Sliding Scale) 0 units SUBQ ACHS [facility]; Protocol Stop: 07/04/19 20:59 Last Admin: 05/08/19 20:39 Dose: Not Given Lorazepam (Ativan) 0.5 mg PO Q4H PRN; Protocol PRN Reason: Anxiety Stop: 07/03/19 22:57 Last Admin: 05/08/19 20:40 Dose: 0.5 mg Magnesium Hydroxide (Milk Of Magnesia) 30 ml PO HS PRN PRN Reason: Constipation Magnesium Oxide (Mag-Oxide) 400 mg PO BID [facility] Stop: 07/05/19 08:59 Last Admin: 05/08/19 17:26 Dose: 400 mg Memantine (Namenda) 10 mg PO HS [facility] Stop: 07/04/19 20:59 Last Admin: 05/08/19 20:40 Dose: 10 mg Metoprolol Tartrate (Lopressor) 25 mg PO BID [facility] Stop: 07/05/19 08:59 Last Admin: 05/08/19 17:26 Dose: 25 mg Multivitamins/Vitamin C (Theragran) 1 tab PO DAILY [facility] Stop: 07/04/19 08:59 Last Admin: 05/08/19 09:31 Dose: 1 tab Pantoprazole Sodium (Protonix) 40 mg PO QDAC [facility] Stop: 07/05/19 07:29 Last Admin: 05/08/19 06:35 Dose: 40 mg Zolpidem Tartrate (Ambien) 5 mg PO HS PRN PRN Reason: Insomnia Stop: 07/03/19 22:57 Last Admin: 05/08/19 21:44 Dose: 5 mg General: No acute distress HEENT: PERRLA, EOMI Neck: Supple, JVD, Thyromegaly Cardiovascular: Regular rate, Normal S1, Normal S2 Lungs: Clear to auscultation Abdomen: Bowel sounds, Soft Assessment/Plan - Assessment Assessment: DM CVA A.FIB DEMENTIA - Plan Plan: CONTINUE CURRENT TREATMENT Nutritional Asmnt/Malnutr-PDOC - Dietary Evaluation Malnutrition Findings (Please click <Entered> for more info): Nutritional Asmnt/Malnutrition Start: 05/08/19 13: 00 Text: Status: Complete Freq: Protocol: Document 05/08/19 13:00 [facility] (Rec: 05/08/19 13:04 [email or web address]) Nutritional Asmnt/Malnutrition Patient General Information Nutritional Screening Moderate Risk Diagnosis Psychosis Pertinent Medical Hx/Surgical Hx A-FIB, CVA with Lt hemiplegia, DM, Dementia, Hyperlipidemia, Parkinsonism Subjective Information Pt is a 68-year-old male admitted on 05/04 d/t agitation and aggressive behavior. Pt is eating an estimated 75% of meals x3 days (average) Per Meal/Nutrition Activity Record -adequate to meet nutritional needs. Recommend adding Cardiac to Diet Rx to limit fats as pt BMI is 45.73 (obese , class III). Pt was asleep at time of visit today, after lunch. HT: 51 WT: 242 LB (110 kg) ABW: 145 LB (65.68 kg) BMI: 45.73 (Obese, class III) GI: WNL, Soft, Non-tender BM: 05/08 x1 I/O: 1100/1 (+1099) Skin: WNL, Intact King: 16 [facility] Estimated Energy Needs: (Obese , ABW) 8484-9257 kcals (20-25 kcals/ kg) 53-66g Pro (0.8-1.0 g/kg) 2342-7670 ml (25-30 ml/kg) Pt is eating 75% of meals Per Meal/Nutrition Activity Record . Dietary is currently providing an estimated 2100 kcals and 125 gm Pro, per Pt PO intake this is providing an estimated 1575 kcals and 94gm Pro to meet 100% kcal and 100 +% Pro needs- adequate. Current Diet Order/ Nutrition Support [facility] Pertinent Medications Maalox (PRN), Lipitor, D50w ( PRN), Glutose 40% (PRN), Glucagen (PRN), INS-SS, MOM ( PRN), Mag-Oxide, Theragran, Protonix Pertinent Labs 05/07: A1c 5.8% POC Glucose (Last 24 hours): 79, 117, 94, 125, 109 Nutritional Hx/Data Height 1.55 m Height (Calculated Centimeters) 154.9 Current Weight (lbs) 109.769 kg Weight (Calculated Kilograms) 109.8 Weight (Calculated Grams) 361573.4 [place] Body Weight 112 LB (50.91 kg) % [place] Body Weight 216 Body Mass Index (BMI) 45.7 Weight Status Morbidly Obese GI Symptoms Last BM 05/08 x1 Skin Integrity/Comment: Skin: WNL, Intact King: 16 Current %PO Good (75-100%) Estimated Nutritional Goals BEE in Kcals: Adj wt of IBW Calories/Kcals/Kg 20-25 Kcals Calculated 5141-0208 Protein: Adj wt of IBW Protein g/k.8-1.0 Protein Calculated 53-66 Fluid: ml 0859-7704 ml (25-30 ml/kg) Nutritional Problem 1. Problem Problem Obesity Etiology r/t consistent energy overconsumption Signs/Symptoms: aeb BMI 45.73, obese class III . Malnutrition Related to Morbid Obesity Malnutrition related to morbid obesity BMI> or equal to 40 Query Text:(Any 1 Criteria met) Malnutrition related to morbid obesity Yes Intervention/Recommendation Comments 1. Continue with CCHO 60gm diet as ordered. 2. Recommend adding Cardiac to Diet Rx to limit fats as pt BMI is 45.73 (obese, class III ). Expected Outcomes/Goals Expected Outcomes/Goals 1. PO intake to continue to meet >75% of nutritional needs . 2. Monitor PO intake, wt, nutrition related labs, and skin integrity. 3. Gradual weight loss is ideal. 4. F/U as moderate risk in 3-5 days, 05/11-05/13.
[2019-05-09] MEDS: INSULIN LISPRO SLIDING SCALE 100 UNITS/ML UNIT SUBQ SCH ×4 (06:38→21:04)
[2019-05-09] MEDS: Pantoprazole 40 mg EC Tab PO SCH (06:39)
[2019-05-09] MEDS: Carbidopa/Levodopa 10/100 mg Tab PO SCH ×4 (08:45→21:04)
[2019-05-09] MEDS: Apixaban 5 MG TABLET PO SCH ×2 (08:45→16:54)
[2019-05-09] MEDS: Multivitamin Tab PO SCH (08:46)
--- NOTE | 2019-05-09 19:33 | Progress Notes ---
DATE: 05/08/2019 SUBJECTIVE: The patient is still aggressive, ____, yelling, very demanding, loud disrupting the milieu, mostly keeps to self, confused, does not want to really talk to me or engaged, just demanding that I discharge him. Staff noting fair compliance seems to be getting along well with others just yelling and screaming loud, difficult. Dosages were increased. PLAN: We will continue to monitor, check a Depakote level in a few days, ongoing symptoms. JOB# [id number]
--- NOTE | 2019-05-09 21:45 | General Progress Note ---
Subjective - Review of Systems Service Date: 05/09/19 Subjective: RESTING COMFORTABLY IN BED NO DISTRESS Objective - Results Recent Labs: Laboratory Last Values POC Glucose 87 MG/DL (70 - 105) 05/09/19 20:29 - Physical Exam Vitals and I&O: Vital Signs Temp 96.5 F 05/09/19 20:00 Pulse 98 05/09/19 20:00 Resp 20 05/09/19 20:00 BP 91/62 05/09/19 20:00 Pulse Ox 96 05/09/19 20:00 Intake & Output 05/09/19 05/09/19 05/10/19 06:59 18:59 06:59 Intake Total 480 800 Balance 480 800 Intake: Oral 480 800 Other: # Voids 2 3 # Bowel Movements 0 Active Medications: Current Medications Acetaminophen (Tylenol) 650 mg PO Q4HR PRN PRN Reason: Mild Pain / Temp above 100 Stop: 07/03/19 22:57 Last Admin: 05/09/19 03:47 Dose: 650 mg Al Hydrox/Mg Hydrox/Simethicone (Maalox) 30 ml PO Q4H PRN PRN Reason: GI DISTRESS Stop: 07/03/19 22:57 Atorvastatin Calcium (Lipitor) 40 mg PO HS [facility]; Protocol Stop: 07/04/19 20:59 Last Admin: 05/09/19 21:03 Dose: 40 mg Carbidopa/Levodopa (Sinemet 10 Mg-100 Mg) 1 tab PO QID [facility] Stop: 07/04/19 20:59 Last Admin: 05/09/19 21:04 Dose: 1 tab Dextrose (Glutose 40%) 18.75 gm PO PRN PRN PRN Reason: Blood Glucose less than 70 Stop: 07/04/19 20:24 Divalproex Sodium (Depakote Dr) 500 mg PO BID [facility]; Protocol Stop: 07/06/19 16:59 Last Admin: 05/09/19 16:54 Dose: 500 mg Donepezil HCl (Aricept) 5 mg PO BID [facility] Stop: 07/04/19 08:59 Last Admin: 05/09/19 16:54 Dose: 5 mg Gabapentin (Neurontin) 300 mg PO BID [facility] Stop: 07/05/19 08:59 Last Admin: 05/09/19 16:59 Dose: 300 mg Glucagon (Glucagen) 1 mg IM PRN PRN PRN Reason: Blood Glucose less than 70 Stop: 07/04/19 20:24 Insulin Human Lispro (Humalog Insulin Sliding Scale) 0 units SUBQ [facility]; Protocol Stop: 07/04/19 20:59 Last Admin: 05/09/19 21:04 Dose: Not Given Lorazepam (Ativan) 0.5 mg PO Q4H PRN; Protocol PRN Reason: Anxiety Stop: 07/03/19 22:57 Last Admin: 05/09/19 21:04 Dose: 0.5 mg Magnesium Hydroxide (Milk Of Magnesia) 30 ml PO HS PRN PRN Reason: Constipation Magnesium Oxide (Mag-Oxide) 400 mg PO BID [facility] Stop: 07/05/19 08:59 Last Admin: 05/09/19 16:54 Dose: 400 mg Memantine (Namenda) 10 mg PO HS [facility] Stop: 07/04/19 20:59 Last Admin: 05/09/19 21:04 Dose: 10 mg Metoprolol Tartrate (Lopressor) 25 mg PO BID [facility] Stop: 07/05/19 08:59 Last Admin: 05/09/19 17:03 Dose: Not Given Multivitamins/Vitamin C (Theragran) 1 tab PO DAILY [facility] Stop: 07/04/19 08:59 Last Admin: 05/09/19 08:46 Dose: 1 tab Pantoprazole Sodium (Protonix) 40 mg PO QDAC [facility] Stop: 07/05/19 07:29 Last Admin: 05/09/19 06:39 Dose: 40 mg Zolpidem Tartrate (Ambien) 5 mg PO HS PRN PRN Reason: Insomnia Stop: 07/03/19 22:57 Last Admin: 05/08/19 21:44 Dose: 5 mg General: No acute distress HEENT: PERRLA, EOMI Neck: Supple, JVD, Thyromegaly Cardiovascular: Regular rate, Normal S1, Normal S2 Lungs: Clear to auscultation Abdomen: Bowel sounds, Soft Assessment/Plan - Assessment Assessment: DM CVA A.FIB DEMENTIA - Plan Plan: CONTINUE CURRENT TREATMENT Nutritional Asmnt/Malnutr-PDOC - Dietary Evaluation Malnutrition Findings (Please click <Entered> for more info): Nutritional Asmnt/Malnutrition Start: 05/08/19 13: 00 Text: Status: Complete Freq: Protocol: Document 05/08/19 13:00 [facility] (Rec: 05/08/19 13:04 [facility] [email or web address]) Nutritional Asmnt/Malnutrition Patient General Information Nutritional Screening Moderate Risk Diagnosis Psychosis Pertinent Medical Hx/Surgical Hx A-FIB, CVA with Lt hemiplegia, DM, Dementia, Hyperlipidemia, Parkinsonism Subjective Information Pt is a 68-year-old male admitted on 05/04 d/t agitation and aggressive behavior. Pt is eating an estimated 75% of meals x3 days (average) Per Meal/Nutrition Activity Record -adequate to meet nutritional needs. Recommend adding Cardiac to Diet Rx to limit fats as pt BMI is 45.73 (obese , class III). Pt was asleep at time of visit today, after lunch. HT: 51 WT: 242 LB (110 kg) ABW: 145 LB (65.68 kg) BMI: 45.73 (Obese, class III) GI: WNL, Soft, Non-tender BM: 10 x1 I/O: 1100/1 (+1099) Skin: WNL, Intact King: 16 [facility] Estimated Energy Needs: (Obese , ABW) 2049-4506 kcals (20-25 kcals/ kg) 53-66g Pro (0.8-1.0 g/kg) 4690-4644 ml (25-30 ml/kg) Pt is eating 75% of meals Per Meal/Nutrition Activity Record . Dietary is currently providing an estimated 2100 kcals and 125 gm Pro, per Pt PO intake this is providing an estimated 1575 kcals and 94gm Pro to meet 100% kcal and 100 +% Pro needs- adequate. Current Diet Order/ [facility] Pertinent Medications Maalox (PRN), Lipitor, D50w ( PRN), Glutose 40% (PRN), Glucagen (PRN), INS-SS, MOM ( PRN), Mag-Oxide, Theragran, Protonix Pertinent Labs 05/07: A1c 5.8% POC Glucose (Last 24 hours): 79, 117, 94, 125, 109 Nutritional Hx/Data Height 1.55 m Height (Calculated Centimeters) 154.9 Current Weight (lbs) 109.769 kg Weight (Calculated Kilograms) 109.8 Weight (Calculated Grams) 818883.4 [place] Body Weight 112 LB (50.91 kg) % [place] Body Weight 216 Body Mass Index (BMI) 45.7 Weight Status Morbidly Obese GI Symptoms Last BM 05/08 x1 Skin Integrity/Comment: Skin: WNL, Intact King: 16 Current %PO Good (75-100%) Estimated Nutritional Goals BEE in Kcals: Adj wt of IBW Calories/Kcals/Kg 20-25 Kcals Calculated 6945-5281 Protein: Adj wt of IBW Protein g/k.8-1.0 Protein Calculated 53-66 Fluid: ml 5896-4220 ml (25-30 ml/kg) Nutritional Problem 1. Problem Problem Obesity Etiology r/t consistent energy overconsumption Signs/Symptoms: aeb BMI 45.73, obese class III . Malnutrition Related to Morbid Obesity Malnutrition related to morbid obesity BMI> or equal to 40 Query Text:(Any 1 Criteria met) Malnutrition related to morbid obesity Yes Intervention/Recommendation Comments 1. Continue with CCHO 60gm diet as ordered. 2. Recommend adding Cardiac to Diet Rx to limit fats as pt BMI is 45.73 (obese, class III ). Expected Outcomes/Goals Expected Outcomes/Goals 1. PO intake to continue to meet >75% of nutritional needs . 2. Monitor PO intake, wt, nutrition related labs, and skin integrity. 3. Gradual weight loss is ideal. 4. F/U as moderate risk in 3-5 days, 05/11-05/13.
[2019-05-10] MEDS: Pantoprazole 40 mg EC Tab PO SCH (06:43)
[2019-05-10] MEDS: INSULIN LISPRO SLIDING SCALE 100 UNITS/ML UNIT SUBQ SCH ×3 (06:43→21:24)
--- NOTE | 2019-05-10 08:15 | Progress Notes ---
DATE: 05/09/2019 SUBJECTIVE: The patient in the hospital, was very aggressive, combative, yelling, screaming, agitated. He still is yelling, ongoing concerns about his ability to really take care of himself at a lower level and stay safe. Still yelling, irritable, ongoing behaviors. Recent dose increase of Depakote. PLAN: We will continue to monitor, check a Depakote level. JOB# [id number]
[2019-05-10] MEDS: Apixaban 5 MG TABLET PO SCH ×2 (08:31→17:13)
[2019-05-10] MEDS: Multivitamin Tab PO SCH (08:31)
[2019-05-10] MEDS: Carbidopa/Levodopa 10/100 mg Tab PO SCH ×4 (08:31→21:24)
--- NOTE | 2019-05-10 20:11 | General Progress Note ---
Subjective - Review of Systems Service Date: 05/10/19 Subjective: RESTING COMFORTABLY IN BED NO DISTRESS Objective - Results Recent Labs: Laboratory Last Values POC Glucose 91 MG/DL (70 - 105) 05/10/19 17:18 - Physical Exam Vitals and I&O: Vital Signs Temp 96.5 F 05/09/19 20:00 Pulse 112 05/10/19 17:12 Resp 17 05/10/19 08:00 BP 103/59 05/10/19 17:12 Pulse Ox 96 05/09/19 20:00 Intake & Output 05/10/19 05/10/19 05/11/19 06:59 18:59 06:59 Intake Total 120 950 Balance 120 950 Intake: Oral 120 950 Other: # Voids 3 # Bowel Movements 1 Active Medications: Current Medications Acetaminophen (Tylenol) 650 mg PO Q4HR PRN PRN Reason: Mild Pain / Temp above 100 Stop: 07/03/19 22:57 Last Admin: 05/09/19 03:47 Dose: 650 mg Al Hydrox/Mg Hydrox/Simethicone (Maalox) 30 ml PO Q4H PRN PRN Reason: GI DISTRESS Stop: 07/03/19 22:57 Atorvastatin Calcium (Lipitor) 40 mg PO HS [facility]; Protocol Stop: 07/04/19 20:59 Last Admin: 05/09/19 21:03 Dose: 40 mg Carbidopa/Levodopa (Sinemet 10 Mg-100 Mg) 1 tab PO QID [facility] Stop: 07/04/19 20:59 Last Admin: 05/10/19 17:13 Dose: 1 tab Dextrose (Glutose 40%) 18.75 gm PO PRN PRN PRN Reason: Blood Glucose less than 70 Stop: 07/04/19 20:24 Divalproex Sodium (Depakote Dr) 500 mg PO BID [facility]; Protocol Stop: 07/06/19 16:59 Last Admin: 05/10/19 17:13 Dose: 500 mg Donepezil HCl (Aricept) 5 mg PO BID [facility] Stop: 07/04/19 08:59 Last Admin: 05/10/19 17:14 Dose: 5 mg Gabapentin (Neurontin) 300 mg PO BID [facility] Stop: 07/05/19 08:59 Last Admin: 05/10/19 17:13 Dose: 300 mg Glucagon (Glucagen) 1 mg IM PRN PRN PRN Reason: Blood Glucose less than 70 Stop: 07/04/19 20:24 Insulin Human Lispro (Humalog Insulin Sliding Scale) 0 units SUBQ ACHS [facility]; Protocol Stop: 07/04/19 20:59 Last Admin: 05/10/19 11:54 Dose: Not Given Lorazepam (Ativan) 0.5 mg PO Q4H PRN; Protocol PRN Reason: Anxiety Stop: 07/03/19 22:57 Last Admin: 05/09/19 21:04 Dose: 0.5 mg Magnesium Hydroxide (Milk Of Magnesia) 30 ml PO HS PRN PRN Reason: Constipation Magnesium Oxide (Mag-Oxide) 400 mg PO BID [facility] Stop: 07/05/19 08:59 Last Admin: 05/10/19 17:14 Dose: 400 mg Memantine (Namenda) 10 mg PO HS [facility] Stop: 07/04/19 20:59 Last Admin: 05/09/19 21:04 Dose: 10 mg Metoprolol Tartrate (Lopressor) 25 mg PO BID [facility] Stop: 07/05/19 08:59 Last Admin: 05/10/19 17:12 Dose: Not Given Multivitamins/Vitamin C (Theragran) 1 tab PO DAILY [facility] Stop: 07/04/19 08:59 Last Admin: 05/10/19 08:31 Dose: 1 tab Pantoprazole Sodium (Protonix) 40 mg PO QDAC [facility] Stop: 07/05/19 07:29 Last Admin: 05/10/19 06:43 Dose: 40 mg Vancomycin HCl (Vancomycin Oral) 125 mg PO Q6HR [facility] Stop: 05/20/19 17:59 Zolpidem Tartrate (Ambien) 5 mg PO HS PRN PRN Reason: Insomnia Stop: 07/03/19 22:57 Last Admin: 05/09/19 22:03 Dose: 5 mg General: No acute distress HEENT: PERRLA, EOMI Neck: Supple, JVD, Thyromegaly Cardiovascular: Regular rate, Normal S1, Normal S2 Lungs: Clear to auscultation Abdomen: Bowel sounds, Soft Assessment/Plan - Assessment Assessment: DM CVA A.FIB DEMENTIA C DIFF COLITIS - Plan Plan: CONTINUE CURRENT TREATMENT STARTED ON ORAL VANCO Nutritional Asmnt/Malnutr-PDOC - Dietary Evaluation Malnutrition Findings (Please click <Entered> for more info): Nutritional Asmnt/Malnutrition Start: 05/08/19 13: 00 Text: Status: Complete Freq: Protocol: Document 05/08/19 13:00 [facility] (Rec: 05/08/19 13:04 [email or web address]) Nutritional Asmnt/Malnutrition Patient General Information Nutritional Screening Moderate Risk Diagnosis Psychosis Pertinent Medical Hx/Surgical Hx A-FIB, CVA with Lt hemiplegia, DM, Dementia, Hyperlipidemia, Parkinsonism Subjective Information Pt is a 68-year-old male admitted on 05/04 d/t agitation and aggressive behavior. Pt is eating an estimated 75% of meals x3 days (average) Per Meal/Nutrition Activity Record -adequate to meet nutritional needs. Recommend adding Cardiac to Diet Rx to limit fats as pt BMI is 45.73 (obese , class III). Pt was asleep at time of visit today, after lunch. HT: 51 WT: 242 LB (110 kg) ABW: 145 LB (65.68 kg) BMI: 45.73 (Obese, class III) GI: WNL, Soft, Non-tender BM: 05/08 x1 I/O: 1100/1 (+1099) Skin: WNL, Intact King: 16 Diet Order: [facility] 60gm Estimated Energy Needs: (Obese , ABW) 8378-0948 kcals (20-25 kcals/ kg) 53-66g Pro (0.8-1.0 g/kg) 6588-8176 ml (25-30 ml/kg) Pt is eating 75% of meals Per Meal/Nutrition Activity Record . Dietary is currently providing an estimated 2100 kcals and 125 gm Pro, per Pt PO intake this is providing an estimated 1575 kcals and 94gm Pro to meet 100% kcal and 100 +% Pro needs- adequate. Current Diet Order/ [facility] Pertinent Medications Maalox (PRN), Lipitor, D50w ( PRN), Glutose 40% (PRN), Glucagen (PRN), INS-SS, MOM ( PRN), Mag-Oxide, Theragran, Protonix Pertinent Labs 05/07: A1c 5.8% POC Glucose (Last 24 hours): 79, 117, 94, 125, 109 Nutritional Hx/Data Height 1.55 m Height (Calculated Centimeters) 154.9 Current Weight (lbs) 109.769 kg Weight (Calculated Kilograms) 109.8 Weight (Calculated Grams) 590380.4 [place] Body Weight 112 LB (50.91 kg) % [place] Body Weight 216 Body Mass Index (BMI) 45.7 Weight Status Morbidly Obese GI Symptoms Last BM 05/08 x1 Skin Integrity/Comment: Skin: WNL, Intact King: 16 Current %PO Good (75-100%) Estimated Nutritional Goals BEE in Kcals: Adj wt of IBW Calories/Kcals/Kg 20-25 Kcals Calculated 7749-7611 Protein: Adj wt of IBW Protein g/k.8-1.0 Protein Calculated 53-66 Fluid: ml 6982-9834 ml (25-30 ml/kg) Nutritional Problem 1. Problem Problem Obesity Etiology r/t consistent energy overconsumption Signs/Symptoms: aeb BMI 45.73, obese class III . Malnutrition Related to Morbid Obesity Malnutrition related to morbid obesity BMI> or equal to 40 Query Text:(Any 1 Criteria met) Malnutrition related to morbid obesity Yes Intervention/Recommendation Comments 1. [facility] as [facility]. 2. Recommend adding Cardiac to Diet Rx to limit fats as pt BMI is 45.73 (obese, class III ). Expected Outcomes/Goals Expected Outcomes/Goals 1. PO intake to continue to meet >75% of nutritional needs . 2. Monitor PO intake, wt, nutrition related labs, and skin integrity. 3. Gradual weight loss is ideal. 4. F/U as moderate risk in 3-5 days, 05/11-05/13.
--- NOTE | 2019-05-11 00:15 | Progress Notes ---
DATE: 05/10/2019 SUBJECTIVE: The patient is still yelling, screaming, needing high level of care. Agitated, aggressive, yelling, unruly, still yelling help, help. When we go to see what is going on, he is calm and comfortable. Currently on a higher dosing of Depakote seems to be marginally calmer, ongoing concerns, concerns about his behaviors, very forgetful, confused. We will continue to monitor. [facility]# [id number]
[2019-05-11] MEDS: Pantoprazole 40 mg EC Tab PO SCH (06:36)
[2019-05-11] MEDS: INSULIN LISPRO SLIDING SCALE 100 UNITS/ML UNIT SUBQ SCH ×4 (06:37→21:05)
[2019-05-11] MEDS: Multivitamin Tab PO SCH (09:25)
[2019-05-11] MEDS: Carbidopa/Levodopa 10/100 mg Tab PO SCH ×4 (09:25→21:06)
[2019-05-11] MEDS: Apixaban 5 MG TABLET PO SCH ×2 (09:25→17:45)
[2019-05-11] MEDS ORDERED: Vancomycin HCL 250 mg /10mL UDC PO SCH (10:00)
[2019-05-11] MEDS: Vancomycin HCL 250 mg /10mL UDC PO SCH ×3 (13:39→21:06)
--- NOTE | 2019-05-11 18:06 | General Progress Note ---
Subjective - Review of Systems Service Date: 05/11/19 Subjective: RESTING COMFORTABLY IN BED NO DISTRESS Objective - Results Recent Labs: Laboratory Last Values POC Glucose 138 MG/DL (70 - 105) H 05/10/19 20:10 - Physical Exam Vitals and I&O: Vital Signs Temp 97.1 F 05/11/19 15:54 Pulse 84 05/11/19 15:54 Resp 20 05/11/19 15:54 BP 98/71 05/11/19 15:54 Pulse Ox 95 05/11/19 15:54 Intake & Output 05/10/19 05/11/19 05/11/19 18:59 06:59 18:59 Intake Total 950 850 Balance 950 850 Intake: Oral 950 850 Other: # Voids 4 # Bowel Movements 0 Active Medications: Current Medications Acetaminophen (Tylenol) 650 mg PO Q4HR PRN PRN Reason: Mild Pain / Temp above 100 Stop: 07/03/19 22:57 Last Admin: 05/10/19 22:18 Dose: 650 mg Al Hydrox/Mg Hydrox/Simethicone (Maalox) 30 ml PO Q4H PRN PRN Reason: GI DISTRESS Stop: 07/03/19 22:57 Atorvastatin Calcium (Lipitor) 40 mg PO HS [facility]; Protocol Stop: 07/04/19 20:59 Last Admin: 05/10/19 21:24 Dose: 40 mg Carbidopa/Levodopa (Sinemet 10 Mg-100 Mg) 1 tab PO QID [facility] Stop: 07/04/19 20:59 Last Admin: 05/11/19 17:45 Dose: 1 tab Dextrose (Glutose 40%) 18.75 gm PO PRN PRN PRN Reason: Blood Glucose less than 70 Stop: 07/04/19 20:24 Divalproex Sodium (Depakote Dr) 500 mg PO BID [facility]; Protocol Stop: 07/06/19 16:59 Last Admin: 05/11/19 17:45 Dose: 500 mg Donepezil HCl (Aricept) 5 mg PO BID [facility] Stop: 07/04/19 08:59 Last Admin: 05/11/19 17:45 Dose: 5 mg Gabapentin (Neurontin) 300 mg PO BID [facility] Stop: 07/05/19 08:59 Last Admin: 05/11/19 17:45 Dose: 300 mg Glucagon (Glucagen) 1 mg IM PRN PRN PRN Reason: Blood Glucose less than 70 Stop: 07/04/19 20:24 Insulin Human Lispro (Humalog Insulin Sliding Scale) 0 units SUBQ [facility]; Protocol Stop: 07/04/19 20:59 Last Admin: 05/11/19 16:47 Dose: Not Given Lorazepam (Ativan) 0.5 mg PO Q4H PRN; Protocol PRN Reason: Anxiety Stop: 07/03/19 22:57 Last Admin: 05/09/19 21:04 Dose: 0.5 mg Magnesium Hydroxide (Milk Of Magnesia) 30 ml PO HS PRN PRN Reason: Constipation Magnesium Oxide (Mag-Oxide) 400 mg PO BID [facility] Stop: 07/05/19 08:59 Last Admin: 05/11/19 17:45 Dose: 400 mg Memantine (Namenda) 10 mg PO HS [facility] Stop: 07/04/19 20:59 Last Admin: 05/10/19 21:24 Dose: 10 mg Metoprolol Tartrate (Lopressor) 25 mg PO BID [facility] Stop: 07/05/19 08:59 Last Admin: 05/11/19 16:48 Dose: Not Given Multivitamins/Vitamin C (Theragran) 1 tab PO DAILY [facility] Stop: 07/04/19 08:59 Last Admin: 05/11/19 09:25 Dose: 1 tab Pantoprazole Sodium (Protonix) 40 mg PO QDAC [facility] Stop: 07/05/19 07:29 Last Admin: 05/11/19 06:36 Dose: 40 mg Vancomycin HCl (Vancomycin Oral) 125 mg PO QID [facility] Stop: 07/10/19 09:59 Last Admin: 05/11/19 17:46 Dose: 125 mg Zolpidem Tartrate (Ambien) 5 mg PO HS PRN PRN Reason: Insomnia Stop: 07/03/19 22:57 Last Admin: 05/09/19 22:03 Dose: 5 mg General: No acute distress HEENT: PERRLA, EOMI Neck: Supple, JVD, Thyromegaly Cardiovascular: Regular rate, Normal S1, Normal S2 Lungs: Clear to auscultation Abdomen: Bowel sounds, Soft Assessment/Plan - Assessment Assessment: DM CVA A.FIB DEMENTIA C DIFF COLITIS - Plan Plan: CONTINUE CURRENT TREATMENT Nutritional Asmnt/Malnutr-PDOC - Dietary Evaluation Malnutrition Findings (Please click <Entered> for more info): Nutritional Asmnt/Malnutrition Start: 05/08/19 13: 00 Text: Status: Complete Freq: Protocol: Document 05/08/19 13:00 MARION (Rec: 05/08/19 13:04 MARION [email or web address]) Nutritional Asmnt/Malnutrition Patient General Information Nutritional Screening Moderate Risk Diagnosis Psychosis Pertinent Medical Hx/Surgical Hx A-FIB, CVA with Lt hemiplegia, DM, Dementia, Hyperlipidemia, Parkinsonism Subjective Information Pt is a 68-year-old male admitted on 05/04 d/t agitation and aggressive behavior. Pt is eating an estimated 75% of meals x3 days (average) Per Meal/Nutrition Activity Record -adequate to meet nutritional needs. Recommend adding Cardiac to Diet Rx to limit fats as pt BMI is 45.73 (obese , class III). Pt was asleep at time of visit today, after lunch. HT: 51 WT: 242 LB (110 kg) ABW: 145 LB (65.68 kg) BMI: 45.73 (Obese, class III) GI: WNL, Soft, Non-tender BM: 05/08 x1 I/O: 1100/1 (+1099) Skin: WNL, Intact King: 16 Diet Order: CCHO 60gm Estimated Energy Needs: (Obese , ABW) 5366-8540 kcals (20-25 kcals/ kg) 53-66g Pro (0.8-1.0 g/kg) 5428-7017 ml (25-30 ml/kg) Pt is eating 75% of meals Per Meal/Nutrition Activity Record . Dietary is currently providing an estimated 2100 kcals and 125 gm Pro, per Pt PO intake this is providing an estimated 1575 kcals and 94gm Pro to meet 100% kcal and 100 +% Pro needs- adequate. Current Diet Order/ Nutrition Support CCHO 60gm Pertinent Medications Maalox (PRN), Lipitor, D50w ( PRN), Glutose 40% (PRN), Glucagen (PRN), INS-SS, MOM ( PRN), Mag-Oxide, Theragran, Protonix Pertinent Labs 05/07: A1c 5.8% POC Glucose (Last 24 hours): 79, 117, 94, 125, 109 Nutritional Hx/Data Height 1.55 m Height (Calculated Centimeters) 154.9 Current Weight (lbs) 109.769 kg Weight (Calculated Kilograms) 109.8 Weight (Calculated Grams) 925735.4 [place] Body Weight 112 LB (50.91 kg) % [place] Body Weight 216 Body Mass Index (BMI) 45.7 Weight Status Morbidly Obese GI Symptoms Last BM 05/08 x1 Skin Integrity/Comment: Skin: WNL, Intact King: 16 Current %PO Good (75-100%) Estimated Nutritional Goals BEE in Kcals: Adj wt of IBW Calories/Kcals/Kg 20-25 Kcals Calculated 2643-2444 Protein: Adj wt of IBW Protein g/k.8-1.0 Protein Calculated 53-66 Fluid: ml 0742-3779 ml (25-30 ml/kg) Nutritional Problem 1. Problem Problem Obesity Etiology r/t consistent energy overconsumption Signs/Symptoms: aeb BMI 45.73, obese class III . Malnutrition Related to Morbid Obesity Malnutrition related to morbid obesity BMI> or equal to 40 Query Text:(Any 1 Criteria met) Malnutrition related to morbid obesity Yes Intervention/Recommendation Comments 1. Continue with [facility] 60gm diet as ordered. 2. Recommend adding Cardiac to Diet Rx to limit fats as pt BMI is 45.73 (obese, class III ). Expected Outcomes/Goals Expected Outcomes/Goals 1. PO intake to continue to meet >75% of nutritional needs . 2. Monitor PO intake, wt, nutrition related labs, and skin integrity. 3. Gradual weight loss is ideal. 4. F/U as moderate risk in 3-5 days, 05/11-05/13.
--- NOTE | 2019-05-11 22:14 | Progress Notes ---
DATE: 05/11/2019 SUBJECTIVE: The patient is currently in the hospital, still yelling, screaming, some agitation, very perseverative, still weak, mostly keeps to self; yelling help out, when staff go to see him, there is nothing going on; mostly attention seeking, gets very agitated, upset, screaming at times, is very impulsive, unpredictable. Mild improvement noted, seems to be responding well to current dosing of medication. Continue dosing of Depakote. Vitals were reviewed. Medications were reviewed. JOB# [id number]
[2019-05-12] MEDS: INSULIN LISPRO SLIDING SCALE 100 UNITS/ML UNIT SUBQ SCH ×4 (06:34→20:39)
[2019-05-12] MEDS: Pantoprazole 40 mg EC Tab PO SCH (06:44)
[2019-05-12] MEDS: Vancomycin HCL 250 mg /10mL UDC PO SCH ×4 (09:27→20:58)
[2019-05-12] MEDS: Apixaban 5 MG TABLET PO SCH ×2 (09:28→17:52)
[2019-05-12] MEDS: Multivitamin Tab PO SCH (09:28)
[2019-05-12] MEDS: Carbidopa/Levodopa 10/100 mg Tab PO SCH ×4 (09:28→20:41)
--- NOTE | 2019-05-12 14:17 | Internal Medicine Prog Note ---
Internal Medicine Subjective - Subjective Service Date: 05/12/19 Patient seen and examined:: without staff Patient is:: awake, verbal, in bed, talking, confused Per staff patient has:: no adverse event Internal Medicine Objective - Results Recent Labs: Laboratory Last Values POC Glucose 138 MG/DL (70 - 105) H 05/10/19 20:10 - Physical Exam Vitals and I&O: Vital Signs Temp 97.6 F 05/12/19 05:52 Pulse 76 05/12/19 05:52 Resp 19 05/12/19 05:52 BP 96/56 05/12/19 05:52 Pulse Ox 96 05/12/19 05:52 Intake & Output 05/11/19 05/12/19 05/12/19 18:59 06:59 18:59 Intake Total 850 Balance 850 Intake: Oral 850 Other: # Voids 4 # Bowel Movements 0 Active Medications: Current Medications Acetaminophen (Tylenol) 650 mg PO Q4HR PRN PRN Reason: Mild Pain / Temp above 100 Stop: 07/03/19 22:57 Last Admin: 05/10/19 22:18 Dose: 650 mg Al Hydrox/Mg Hydrox/Simethicone (Maalox) 30 ml PO Q4H PRN PRN Reason: GI DISTRESS Stop: 07/03/19 22:57 Atorvastatin Calcium (Lipitor) 40 mg PO HS [facility]; Protocol Stop: 07/04/19 20:59 Last Admin: 05/11/19 21:05 Dose: 40 mg Carbidopa/Levodopa (Sinemet 10 Mg-100 Mg) 1 tab PO QID [facility] Stop: 07/04/19 20:59 Last Admin: 05/12/19 09:28 Dose: 1 tab Dextrose (Glutose 40%) 18.75 gm PO PRN PRN PRN Reason: Blood Glucose less than 70 Stop: 07/04/19 20:24 Divalproex Sodium (Depakote Dr) 500 mg PO BID [facility]; Protocol Stop: 07/06/19 16:59 Last Admin: 05/12/19 09:27 Dose: 500 mg Donepezil HCl (Aricept) 5 mg PO BID [facility] Stop: 07/04/19 08:59 Last Admin: 05/12/19 09:27 Dose: 5 mg Gabapentin (Neurontin) 300 mg PO BID [facility] Stop: 07/05/19 08:59 Last Admin: 05/12/19 09:28 Dose: 300 mg Glucagon (Glucagen) 1 mg IM PRN PRN PRN Reason: Blood Glucose less than 70 Stop: 07/04/19 20:24 Insulin Human Lispro (Humalog Insulin Sliding Scale) 0 units SUBQ [facility]; Protocol Stop: 07/04/19 20:59 Last Admin: 05/12/19 12:02 Dose: Not Given Lorazepam (Ativan) 0.5 mg PO Q4H PRN; Protocol PRN Reason: Anxiety Stop: 07/03/19 22:57 Last Admin: 05/09/19 21:04 Dose: 0.5 mg Magnesium Hydroxide (Milk Of Magnesia) 30 ml PO HS PRN PRN Reason: Constipation Magnesium Oxide (Mag-Oxide) 400 mg PO BID [facility] Stop: 07/05/19 08:59 Last Admin: 05/12/19 09:28 Dose: 400 mg Memantine (Namenda) 10 mg PO HS [facility] Stop: 07/04/19 20:59 Last Admin: 05/11/19 21:06 Dose: 10 mg Metoprolol Tartrate (Lopressor) 25 mg PO BID [facility] Stop: 07/05/19 08:59 Last Admin: 05/12/19 08:34 Dose: Not Given Multivitamins/Vitamin C (Theragran) 1 tab PO DAILY [facility] Stop: 07/04/19 08:59 Last Admin: 05/12/19 09:28 Dose: 1 tab Pantoprazole Sodium (Protonix) 40 mg PO QDAC [facility] Stop: 07/05/19 07:29 Last Admin: 05/12/19 06:44 Dose: 40 mg Quetiapine Fumarate (Seroquel) 25 mg PO DAILY [facility]; Protocol Stop: 07/11/19 08:59 Last Admin: 05/12/19 09:27 Dose: 25 mg Quetiapine Fumarate (Seroquel) 50 mg PO HS [facility]; Protocol Stop: 07/11/19 20:59 Vancomycin HCl (Vancomycin Oral) 125 mg PO QID [facility] Stop: 07/10/19 09:59 Last Admin: 05/12/19 09:27 Dose: 125 mg Zolpidem Tartrate (Ambien) 5 mg PO HS PRN PRN Reason: Insomnia Stop: 07/03/19 22:57 Last Admin: 05/09/19 22:03 Dose: 5 mg General: alert, demented HEENT: NC/AT, PERRLA, EOMI, anicteric sclerae, throat clear Neck: Supple, No JVD, No thyromegaly, +2 carotid pulse wo bruit, No LAD, + JVD Lungs: CTAB Cardiovascular: RRR, Normal S1, Normal S2, without murmur Abdomen: soft, non-tender, non-distended Extremities: clear Neurological: no change Internal Medicine Assmt/Plan - Assessment Assessment: 1.DM. 2.CVA. 3.CHRONIC A FIB. 4.PSYCHOSIS. - Plan Plan: CONTINUE ON CURRENT MEDICATION AND DIET. Nutritional Asmnt/Malnutr-PDOC - Dietary Evaluation Malnutrition Findings (Please click <Entered> for more info): Nutritional Asmnt/Malnutrition Start: 05/08/19 13: 00 Text: Status: Complete Freq: Protocol: Document 05/08/19 13:00 MARION (Rec: 05/08/19 13:04 MAR[facility] [email or web address]) Nutritional Asmnt/Malnutrition Patient General Information Nutritional Screening Moderate Risk Diagnosis Psychosis Pertinent Medical Hx/Surgical Hx A-FIB, CVA with Lt hemiplegia, DM, Dementia, Hyperlipidemia, Parkinsonism Subjective Information Pt is a 68-year-old male admitted on 05/04 d/t agitation and aggressive behavior. Pt is eating an estimated 75% of meals x3 days (average) Per Meal/Nutrition Activity Record -adequate to meet nutritional needs. Recommend adding Cardiac to Diet Rx to limit fats as pt BMI is 45.73 (obese , class III). Pt was asleep at time of visit today, after lunch. HT: 51 WT: 242 LB (110 kg) ABW: 145 LB (65.68 kg) BMI: 45.73 (Obese, class III) GI: WNL, Soft, Non-tender BM: 05/08 x1 I/O: 1100/1 (+1099) Skin: WNL, Intact King: 16 [facility] Estimated Energy Needs: (Obese , ABW) 3075-4962 kcals (20-25 kcals/ kg) 53-66g Pro (0.8-1.0 g/kg) 7215-0124 ml (25-30 ml/kg) Pt is eating 75% of meals Per Meal/Nutrition Activity Record . Dietary is currently providing an estimated 2100 kcals and 125 gm Pro, per Pt PO intake this is providing an estimated 1575 kcals and 94gm Pro to meet 100% kcal and 100 +% Pro needs- adequate. Current Diet Order/ Nutrition Support CCHO 60gm Pertinent Medications Maalox (PRN), Lipitor, D50w ( PRN), Glutose 40% (PRN), Glucagen (PRN), INS-SS, MOM ( PRN), Mag-Oxide, Theragran, Protonix Pertinent Labs 05/07: A1c 5.8% POC Glucose (Last 24 hours): 79, 117, 94, 125, 109 Nutritional Hx/Data Height 1.55 m Height (Calculated Centimeters) 154.9 Current Weight (lbs) 109.769 kg Weight (Calculated Kilograms) 109.8 Weight (Calculated Grams) 364936.4 [place] Body Weight 112 LB (50.91 kg) % [place] Body Weight 216 Body Mass Index (BMI) 45.7 Weight Status Morbidly Obese GI Symptoms Last BM 05/08 x1 Skin Integrity/Comment: Skin: WNL, Intact King: 16 Current %PO Good (75-100%) Estimated Nutritional Goals BEE in Kcals: Adj wt of IBW Calories/Kcals/Kg 20-25 Kcals Calculated 5233-8902 Protein: Adj wt of IBW Protein g/k.8-1.0 Protein Calculated 53-66 Fluid: ml 8970-5230 ml (25-30 ml/kg) Nutritional Problem 1. Problem Problem Obesity Etiology r/t consistent energy overconsumption Signs/Symptoms: aeb BMI 45.73, obese class III . Malnutrition Related to Morbid Obesity Malnutrition related to morbid obesity BMI> or equal to 40 Query Text:(Any 1 Criteria met) Malnutrition related to morbid obesity Yes Intervention/Recommendation Comments 1. [facility] as ordered. 2. Recommend adding Cardiac to Diet Rx to limit fats as pt BMI is 45.73 (obese, class III ). Expected Outcomes/Goals Expected Outcomes/Goals 1. PO intake to continue to meet >75% of nutritional needs . 2. Monitor PO intake, wt, nutrition related labs, and skin integrity. 3. Gradual weight loss is ideal. 4. F/U as moderate risk in 3-5 days, 05/11-05/13.
--- NOTE | 2019-05-12 22:21 | Progress Notes ---
DATE: 05/12/2019 Dr. Baron covering for Dr. Curry. Chart reviewed and the patient interviewed. Also discussed the patient's condition with the staff and reviewed records and labs. The patient is still extremely irritable and extremely agitated. The patient also is still yelling and screaming with loud tone of voice and with difficulty following any directions. The patient also is still suspicious and paranoid. He also still needs close monitoring. The patient also during my interview has difficulty hearing, which might be part of his irritability and anger. Also is demanding. Otherwise, the patient is compliant with taking his medications. Vital signs are stable and Depakote blood level is pending. TREATMENT PLAN: Continue monitoring his behavior and condition closely. Also, continue to work on his poor impulse control and adjusting psychotropic medications. JOB# [id number]
[2019-05-13] MEDS: INSULIN LISPRO SLIDING SCALE 100 UNITS/ML UNIT SUBQ SCH ×4 (06:52→21:30)
[2019-05-13] MEDS: Pantoprazole 40 mg EC Tab PO SCH (06:52)
[2019-05-13] MEDS: Apixaban 5 MG TABLET PO SCH ×2 (09:26→18:15)
[2019-05-13] MEDS: Carbidopa/Levodopa 10/100 mg Tab PO SCH ×4 (09:26→21:32)
[2019-05-13] MEDS: Multivitamin Tab PO SCH (09:31)
[2019-05-13] MEDS: Vancomycin HCL 250 mg /10mL UDC PO SCH ×4 (09:35→21:33)
--- NOTE | 2019-05-13 13:24 | Internal Medicine Prog Note ---
Internal Medicine Subjective - Subjective Service Date: 05/13/19 Patient seen and examined:: without staff (he is doing well) Patient is:: awake, verbal, in bed, talking, confused Per staff patient has:: no adverse event Internal Medicine Objective - Results Recent Labs: Laboratory Last Values POC Glucose 138 MG/DL (70 - 105) H 05/10/19 20:10 - Physical Exam Vitals and I&O: Vital Signs Temp 97.3 F 05/13/19 06:21 Pulse 60 05/13/19 09:27 Resp 18 05/13/19 06:21 BP 151/72 05/13/19 09:27 Pulse Ox 96 05/13/19 06:21 Intake & Output 05/12/19 05/13/19 05/13/19 18:59 06:59 18:59 Intake Total 1200 480 Balance 1200 480 Intake: Oral 1200 480 Other: # Voids 3 3 # Bowel Movements 0 1 Active Medications: Current Medications Acetaminophen (Tylenol) 650 mg PO Q4HR PRN PRN Reason: Mild Pain / Temp above 100 Stop: 07/03/19 22:57 Last Admin: 05/10/19 22:18 Dose: 650 mg Al Hydrox/Mg Hydrox/Simethicone (Maalox) 30 ml PO Q4H PRN PRN Reason: GI DISTRESS Stop: 07/03/19 22:57 Atorvastatin Calcium (Lipitor) 40 mg PO HS [facility]; Protocol Stop: 07/04/19 20:59 Last Admin: 05/12/19 20:40 Dose: 40 mg Carbidopa/Levodopa (Sinemet 10 Mg-100 Mg) 1 tab PO QID [facility] Stop: 07/04/19 20:59 Last Admin: 05/13/19 09:26 Dose: 1 tab Dextrose (Glutose 40%) 18.75 gm PO PRN PRN PRN Reason: Blood Glucose less than 70 Stop: 07/04/19 20:24 Divalproex Sodium (Depakote Dr) 500 mg PO BID [facility]; Protocol Stop: 07/06/19 16:59 Last Admin: 05/13/19 09:27 Dose: 500 mg Donepezil HCl (Aricept) 5 mg PO BID [facility] Stop: 07/04/19 08:59 Last Admin: 05/13/19 09:28 Dose: 5 mg Gabapentin (Neurontin) 300 mg PO BID [facility] Stop: 07/05/19 08:59 Last Admin: 05/13/19 09:31 Dose: 300 mg Glucagon (Glucagen) 1 mg IM PRN PRN PRN Reason: Blood Glucose less than 70 Stop: 07/04/19 20:24 Insulin Human Lispro (Humalog Insulin Sliding Scale) 0 units SUBQ [facility]; Protocol Stop: 07/04/19 20:59 Last Admin: 05/13/19 06:52 Dose: Not Given Lorazepam (Ativan) 0.5 mg PO Q4H PRN; Protocol PRN Reason: Anxiety Stop: 07/03/19 22:57 Last Admin: 05/13/19 06:53 Dose: 0.5 mg Magnesium Hydroxide (Milk Of Magnesia) 30 ml PO HS PRN PRN Reason: Constipation Magnesium Oxide (Mag-Oxide) 400 mg PO BID [facility] Stop: 07/05/19 08:59 Last Admin: 05/13/19 09:26 Dose: 400 mg Memantine (Namenda) 10 mg PO HS [facility] Stop: 07/04/19 20:59 Last Admin: 05/12/19 20:41 Dose: 10 mg Metoprolol Tartrate (Lopressor) 25 mg PO BID [facility] Stop: 07/05/19 08:59 Last Admin: 05/13/19 09:27 Dose: 25 mg Multivitamins/Vitamin C (Theragran) 1 tab PO DAILY [facility] Stop: 07/04/19 08:59 Last Admin: 05/13/19 09:31 Dose: 1 tab Pantoprazole Sodium (Protonix) 40 mg PO QDAC [facility] Stop: 07/05/19 07:29 Last Admin: 05/13/19 06:52 Dose: 40 mg Quetiapine Fumarate (Seroquel) 25 mg PO DAILY [facility]; Protocol Stop: 07/11/19 08:59 Last Admin: 05/13/19 09:27 Dose: 25 mg Quetiapine Fumarate (Seroquel) 50 mg PO HS [facility]; Protocol Stop: 07/11/19 20:59 Last Admin: 05/12/19 20:42 Dose: 50 mg Vancomycin HCl (Vancomycin Oral) 125 mg PO QID [facility] Stop: 07/10/19 09:59 Last Admin: 05/13/19 09:35 Dose: 125 mg Zolpidem Tartrate (Ambien) 5 mg PO HS PRN PRN Reason: Insomnia Stop: 07/03/19 22:57 Last Admin: 05/12/19 20:42 Dose: 5 mg General: alert, demented HEENT: NC/AT, PERRLA, EOMI, anicteric sclerae, throat clear Neck: Supple, No JVD, No thyromegaly, +2 carotid pulse wo bruit, No LAD, + JVD Lungs: CTAB Cardiovascular: RRR, Normal S1, Normal S2, without murmur Abdomen: soft, non-tender, non-distended Extremities: clear Neurological: no change Internal Medicine Assmt/Plan - Assessment Assessment: 1.DM. 2.CVA. 3.CHRONIC A FIB. 4.PSYCHOSIS. - Plan Plan: CONTINUE ON CURRENT MEDICATION AND DIET. Nutritional Asmnt/Malnutr-PDOC - Dietary Evaluation Malnutrition Findings (Please click <Entered> for more info): Nutritional Asmnt/Malnutrition Start: 05/08/19 13: 00 Text: Status: Complete Freq: Protocol: Document 05/08/19 13:00 [facility] (Rec: 05/08/19 13:04 [facility] [email or web address]) Nutritional Asmnt/Malnutrition Patient General Information Nutritional Screening Moderate Risk Diagnosis Psychosis Pertinent Medical Hx/Surgical Hx A-FIB, CVA with Lt hemiplegia, DM, Dementia, Hyperlipidemia, Parkinsonism Subjective Information Pt is a 68-year-old male admitted on 05/04 d/t agitation and aggressive behavior. Pt is eating an estimated 75% of meals x3 days (average) Per Meal/Nutrition Activity Record -adequate to meet nutritional needs. Recommend adding Cardiac to Diet Rx to limit fats as pt BMI is 45.73 (obese , class III). Pt was asleep at time of visit today, after lunch. HT: 51 WT: 242 LB (110 kg) ABW: 145 LB (65.68 kg) BMI: 45.73 (Obese, class III) GI: WNL, Soft, Non-tender BM: 10 x1 I/O: 1100/1 (+1099) Skin: WNL, Intact King: 16 Diet Order: CCHO 60gm Estimated Energy Needs: (Obese , ABW) 5708-6555 kcals (20-25 kcals/ kg) 53-66g Pro (0.8-1.0 g/kg) 5088-6406 ml (25-30 ml/kg) Pt is eating 75% of meals Per Meal/Nutrition Activity Record . Dietary is currently providing an estimated 2100 kcals and 125 gm Pro, per Pt PO intake this is providing an estimated 1575 kcals and 94gm Pro to meet 100% kcal and 100 +% Pro needs- adequate. Current Diet Order/ Nutrition Support CCHO 60gm Pertinent Medications Maalox (PRN), Lipitor, D50w ( PRN), Glutose 40% (PRN), Glucagen (PRN), INS-SS, MOM ( PRN), Mag-Oxide, Theragran, Protonix Pertinent Labs 05/07: A1c 5.8% POC Glucose (Last 24 hours): 79, 117, 94, 125, 109 Nutritional Hx/Data Height 1.55 m Height (Calculated Centimeters) 154.9 Current Weight (lbs) 109.769 kg Weight (Calculated Kilograms) 109.8 Weight (Calculated Grams) 430675.4 [place] Body Weight 112 LB (50.91 kg) % [place] Body Weight 216 Body Mass Index (BMI) 45.7 Weight Status Morbidly Obese GI Symptoms Last BM 05/08 x1 Skin Integrity/Comment: Skin: WNL, Intact King: 16 Current %PO Good (75-100%) Estimated Nutritional Goals BEE in Kcals: Adj wt of IBW Calories/Kcals/Kg 20-25 Kcals Calculated 0754-7237 Protein: Adj wt of IBW Protein g/k.8-1.0 Protein Calculated 53-66 Fluid: ml 3648-6354 ml (25-30 ml/kg) Nutritional Problem 1. Problem Problem Obesity Etiology r/t consistent energy overconsumption Signs/Symptoms: aeb BMI 45.73, obese class III . Malnutrition Related to Morbid Obesity Malnutrition related to morbid obesity BMI> or equal to 40 Query Text:(Any 1 Criteria met) Malnutrition related to morbid obesity Yes Intervention/Recommendation Comments 1. [facility] diet as ordered. 2. Recommend adding Cardiac to Diet Rx to limit fats as pt BMI is 45.73 (obese, class III ). Expected Outcomes/Goals Expected Outcomes/Goals 1. PO intake to continue to meet >75% of nutritional needs . 2. Monitor PO intake, wt, nutrition related labs, and skin integrity. 3. Gradual weight loss is ideal. 4. F/U as moderate risk in 3-5 days, 05/11-05/13.
[2019-05-14] MEDS: Pantoprazole 40 mg EC Tab PO SCH (06:49)
[2019-05-14] MEDS: INSULIN LISPRO SLIDING SCALE 100 UNITS/ML UNIT SUBQ SCH ×4 (06:49→21:46)
--- NOTE | 2019-05-14 07:19 | Progress Notes ---
DATE: SUBJECTIVE: Chart reviewed and the patient interviewed. Also discussed the patient's condition with the staff and reviewed records and labs. The patient seems to be slightly calmer and not screaming as much. The patient also is slightly easier to redirect him. He is compliant with taking his medications with no side effects of medications. He still needs redirection and seems to be irritable and easily agitated, but less than before. ASSESSMENT: The patient is still psychotic and agitated. TREATMENT PLAN: Continue to monitor behavior and patient closely and continue Seroquel 25 mg in the morning and 50 mg at bedtime and continue to follow up. [facility]# [id number]
[2019-05-14] MEDS: Multivitamin Tab PO SCH (09:59)
[2019-05-14] MEDS: Apixaban 5 MG TABLET PO SCH ×2 (10:00→17:35)
[2019-05-14] MEDS: Carbidopa/Levodopa 10/100 mg Tab PO SCH ×4 (10:00→21:46)
[2019-05-14] MEDS: Vancomycin HCL 250 mg /10mL UDC PO SCH ×4 (10:01→21:47)
--- NOTE | 2019-05-14 17:51 | Internal Medicine Prog Note ---
Internal Medicine Subjective - Subjective Service Date: 05/14/19 Patient seen and examined:: without staff (HE HAS LES DIARRHEA,STILL WEAK.) Patient is:: awake, verbal, in bed, talking, confused Per staff patient has:: no adverse event Internal Medicine Objective - Results Recent Labs: Laboratory Last Values POC Glucose 138 MG/DL (70 - 105) H 05/10/19 20:10 - Physical Exam Vitals and I&O: Vital Signs Temp 97.7 F 05/14/19 14:00 Pulse 75 05/14/19 14:00 Resp 20 05/14/19 14:00 BP 105/73 05/14/19 14:00 Pulse Ox 95 05/14/19 14:00 Intake & Output 05/13/19 05/14/19 05/14/19 18:59 06:59 18:59 Intake Total 850 240 Balance 850 240 Intake: Oral 850 240 Other: # Voids 2 # Bowel Movements 1 0 Stool Characteristics Soft Active Medications: Current Medications Acetaminophen (Tylenol) 650 mg PO Q4HR PRN PRN Reason: Mild Pain / Temp above 100 Stop: 07/03/19 22:57 Last Admin: 05/10/19 22:18 Dose: 650 mg Al Hydrox/Mg Hydrox/Simethicone (Maalox) 30 ml PO Q4H PRN PRN Reason: GI DISTRESS Stop: 07/03/19 22:57 Atorvastatin Calcium (Lipitor) 40 mg PO HS [facility]; Protocol Stop: 07/04/19 20:59 Last Admin: 05/13/19 21:31 Dose: 40 mg Carbidopa/Levodopa (Sinemet 10 Mg-100 Mg) 1 tab PO QID [facility] Stop: 07/04/19 20:59 Last Admin: 05/14/19 17:35 Dose: Not Given Dextrose (Glutose 40%) 18.75 gm PO PRN PRN PRN Reason: Blood Glucose less than 70 Stop: 07/04/19 20:24 Divalproex Sodium (Depakote Dr) 500 mg PO BID [facility]; Protocol Stop: 07/06/19 16:59 Last Admin: 05/14/19 17:35 Dose: Not Given Donepezil HCl (Aricept) 5 mg PO BID [facility] Stop: 07/04/19 08:59 Last Admin: 05/14/19 17:35 Dose: Not Given Gabapentin (Neurontin) 300 mg PO BID [facility] Stop: 07/05/19 08:59 Last Admin: 05/14/19 17:36 Dose: Not Given Glucagon (Glucagen) 1 mg IM PRN PRN PRN Reason: Blood Glucose less than 70 Stop: 07/04/19 20:24 Insulin Human Lispro (Humalog Insulin Sliding Scale) 0 units SUBQ ACHS [facility]; Protocol Stop: 07/04/19 20:59 Last Admin: 05/14/19 17:16 Dose: Not Given Lorazepam (Ativan) 0.5 mg PO Q4H PRN; Protocol PRN Reason: Anxiety Stop: 07/03/19 22:57 Last Admin: 05/13/19 06:53 Dose: 0.5 mg Magnesium Hydroxide (Milk Of Magnesia) 30 ml PO HS PRN PRN Reason: Constipation Magnesium Oxide (Mag-Oxide) 400 mg PO BID [facility] Stop: 07/05/19 08:59 Last Admin: 05/14/19 17:36 Dose: Not Given Memantine (Namenda) 10 mg PO HS [facility] Stop: 07/04/19 20:59 Last Admin: 05/13/19 21:32 Dose: 10 mg Metoprolol Tartrate (Lopressor) 25 mg PO BID [facility] Stop: 07/05/19 08:59 Last Admin: 05/14/19 17:36 Dose: Not Given Multivitamins/Vitamin C (Theragran) 1 tab PO DAILY [facility] Stop: 07/04/19 08:59 Last Admin: 05/14/19 09:59 Dose: 1 tab Pantoprazole Sodium (Protonix) 40 mg PO QDAC [facility] Stop: 07/05/19 07:29 Last Admin: 05/14/19 06:49 Dose: 40 mg Quetiapine Fumarate (Seroquel) 25 mg PO DAILY [facility]; Protocol Stop: 07/11/19 08:59 Last Admin: 05/14/19 10:00 Dose: 25 mg Quetiapine Fumarate (Seroquel) 50 mg PO HS [facility]; Protocol Stop: 07/11/19 20:59 Last Admin: 05/13/19 21:32 Dose: 50 mg Vancomycin HCl (Vancomycin Oral) 125 mg PO QID [facility] Stop: 07/10/19 09:59 Last Admin: 05/14/19 17:36 Dose: Not Given Zolpidem Tartrate (Ambien) 5 mg PO HS PRN PRN Reason: Insomnia Stop: 07/03/19 22:57 Last Admin: 05/13/19 21:33 Dose: 5 mg General: alert, demented HEENT: NC/AT, PERRLA, EOMI, anicteric sclerae, throat clear Neck: Supple, No JVD, No thyromegaly, +2 carotid pulse wo bruit, No LAD, + JVD Lungs: CTAB Cardiovascular: RRR, Normal S1, Normal S2, without murmur Abdomen: soft, non-tender, non-distended Extremities: clear Neurological: no change Internal Medicine Assmt/Plan - Assessment Assessment: 1.DM. 2.CVA. 3.CHRONIC A FIB. 4.C DIFF COLITIS 5.PSYCHOSIS - Plan Plan: CONTINUE ON CURRENT MEDICATION AND DIET.CBC AND CMP IN AM. Nutritional Asmnt/Malnutr-PDOC - Dietary Evaluation Malnutrition Findings (Please click <Entered> for more info): Nutritional Asmnt/Malnutrition Start: 05/08/19 13: 00 Text: Status: Complete Freq: Protocol: Document 05/08/19 13:00 MARION (Rec: 05/08/19 13:04 MARION [email or web address]) Nutritional Asmnt/Malnutrition Patient General Information Nutritional Screening Moderate Risk Diagnosis Psychosis Pertinent Medical Hx/Surgical Hx A-FIB, CVA with Lt hemiplegia, DM, Dementia, Hyperlipidemia, Parkinsonism Subjective Information Pt is a 68-year-old male admitted on 05/04 d/t agitation and aggressive behavior. Pt is eating an estimated 75% of meals x3 days (average) Per Meal/Nutrition Activity Record -adequate to meet nutritional needs. Recommend adding Cardiac to Diet Rx to limit fats as pt BMI is 45.73 (obese , class III). Pt was asleep at time of visit today, after lunch. HT: 51 WT: 242 LB (110 kg) ABW: 145 LB (65.68 kg) BMI: 45.73 (Obese, class III) GI: WNL, Soft, Non-tender BM: 10 x1 I/O: 1100/1 (+1099) Skin: WNL, Intact King: 16 Diet Order: CCHO 60gm Estimated Energy Needs: (Obese , ABW) 1263-4713 kcals (20-25 kcals/ kg) 53-66g Pro (0.8-1.0 g/kg) 7508-1660 ml (25-30 ml/kg) Pt is eating 75% of meals Per Meal/Nutrition Activity Record . Dietary is currently providing an estimated 2100 kcals and 125 gm Pro, per Pt PO intake this is providing an estimated 1575 kcals and 94gm Pro to meet 100% kcal and 100 +% Pro needs- adequate. Current Diet Order/ Nutrition Support CCHO 60gm Pertinent Medications Maalox (PRN), Lipitor, D50w ( PRN), Glutose 40% (PRN), Glucagen (PRN), INS-SS, MOM ( PRN), Mag-Oxide, Theragran, Protonix Pertinent Labs 05/07: A1c 5.8% POC Glucose (Last 24 hours): 79, 117, 94, 125, 109 Nutritional Hx/Data Height 1.55 m Height (Calculated Centimeters) 154.9 Current Weight (lbs) 109.769 kg Weight (Calculated Kilograms) 109.8 Weight (Calculated Grams) 381982.4 [place] Body Weight 112 LB (50.91 kg) % [place] Body Weight 216 Body Mass Index (BMI) 45.7 Weight Status Morbidly Obese GI Symptoms Last BM 05/08 x1 Skin Integrity/Comment: Skin: WNL, Intact King: 16 Current %PO Good (75-100%) Estimated Nutritional Goals BEE in Kcals: Adj wt of IBW Calories/Kcals/Kg 20-25 Kcals Calculated 0375-7767 Protein: Adj wt of IBW Protein g/k.8-1.0 Protein Calculated 53-66 Fluid: ml 3653-5719 ml (25-30 ml/kg) Nutritional Problem 1. Problem Problem Obesity Etiology r/t consistent energy overconsumption Signs/Symptoms: aeb BMI 45.73, obese class III . Malnutrition Related to Morbid Obesity Malnutrition related to morbid obesity BMI> or equal to 40 Query Text:(Any 1 Criteria met) Malnutrition related to morbid obesity Yes Intervention/Recommendation Comments 1. Continue with CCHO 60gm diet as ordered. 2. Recommend adding Cardiac to Diet Rx to limit fats as pt BMI is 45.73 (obese, class III ). Expected Outcomes/Goals Expected Outcomes/Goals 1. PO intake to continue to meet >75% of nutritional needs . 2. Monitor PO intake, wt, nutrition related labs, and skin integrity. 3. Gradual weight loss is ideal. 4. F/U as moderate risk in 3-5 days, 05/11-05/13.
--- NOTE | 2019-05-14 21:10 | Progress Notes ---
DATE: 05/14/2019 SUBJECTIVE: Case was discussed with staff of the patient, reviewed records, treatment plan, medication list and labs. Covering for Dr. Curry. This is a 68-year-old male who was admitted on 05/04/2019 with a history of dementia, brought after the patient was sexually inappropriate, increasing agitation, yelling out, uncooperative, irritable, and refusing to answer questions. The patient continues to have episodes of screaming, but not as much. Continues to be confused. pt is compliant with the medication with no side effects, no sedation, no nausea, no extrapyramidal symptoms. Continues to have episodes of agitation and psychosis. His current medication includes Seroquel 50 mg at bedtime and 25 mg daily. He is also Namenda 10 mg at bedtime, multivitamin, pantoprazole, Aricept 5 mg twice a day, Depakote 500 mg twice a day, Sinemet, atorvastatin and Eliquis. Lab work showed blood sugar at 138 on 05/10/2019. It was normal before that. No side effects of the medication, no sedation, no nausea, no extrapyramidal symptoms. We will continue outpatient group therapy, milieu therapy, and adjust medications as needed. JOB# [id number] KATI
[2019-05-15] MEDS: Pantoprazole 40 mg EC Tab PO SCH (06:47)
[2019-05-15] MEDS: INSULIN LISPRO SLIDING SCALE 100 UNITS/ML UNIT SUBQ SCH ×4 (06:47→20:33)
[2019-05-15] MEDS: Multivitamin Tab PO SCH (09:42)
[2019-05-15] MEDS: Apixaban 5 MG TABLET PO SCH ×2 (09:42→17:31)
[2019-05-15] MEDS: Carbidopa/Levodopa 10/100 mg Tab PO SCH ×4 (09:42→20:34)
[2019-05-15] MEDS: Vancomycin HCL 250 mg /10mL UDC PO SCH ×4 (09:43→20:37)
--- NOTE | 2019-05-15 18:50 | Internal Medicine Prog Note ---
Internal Medicine Subjective - Subjective Service Date: 05/15/19 Patient seen and examined:: without staff (HAS LESS DIARREA) Patient is:: awake, verbal, in bed, talking, confused Per staff patient has:: no adverse event Internal Medicine Objective - Results Recent Labs: Laboratory Last Values POC Glucose 138 MG/DL (70 - 105) H 05/10/19 20:10 - Physical Exam Vitals and I&O: Vital Signs Temp 97.8 F 05/15/19 14:44 Pulse 80 05/15/19 17:31 Resp 19 05/15/19 14:44 BP 129/69 05/15/19 17:31 Pulse Ox 97 05/15/19 14:44 Intake & Output 05/14/19 05/15/19 05/15/19 18:59 06:59 18:59 Intake Total 360 300 640 Balance 360 300 640 Intake: Oral 360 300 640 Other: # Voids 1 3 3 # Bowel Movements 0 1 0 Stool Characteristics Soft Soft Active Medications: Current Medications Acetaminophen (Tylenol) 650 mg PO Q4HR PRN PRN Reason: Mild Pain / Temp above 100 Stop: 07/03/19 22:57 Last Admin: 05/15/19 09:39 Dose: 650 mg Al Hydrox/Mg Hydrox/Simethicone (Maalox) 30 ml PO Q4H PRN PRN Reason: GI DISTRESS Stop: 07/03/19 22:57 Atorvastatin Calcium (Lipitor) 40 mg PO HS [facility]; Protocol Stop: 07/04/19 20:59 Last Admin: 05/14/19 21:46 Dose: 40 mg Carbidopa/Levodopa (Sinemet 10 Mg-100 Mg) 1 tab PO QID [facility] Stop: 07/04/19 20:59 Last Admin: 05/15/19 17:31 Dose: 1 tab Dextrose (Glutose 40%) 18.75 gm PO PRN PRN PRN Reason: Blood Glucose less than 70 Stop: 07/04/19 20:24 Divalproex Sodium (Depakote Dr) 500 mg PO BID [facility]; Protocol Stop: 07/06/19 16:59 Last Admin: 05/15/19 17:31 Dose: 500 mg Donepezil HCl (Aricept) 10 mg PO HS [facility] Stop: 07/14/19 20:59 Gabapentin (Neurontin) 300 mg PO BID [facility] Stop: 07/05/19 08:59 Last Admin: 05/15/19 17:32 Dose: 300 mg Glucagon (Glucagen) 1 mg IM PRN PRN PRN Reason: Blood Glucose less than 70 Stop: 07/04/19 20:24 Insulin Human Lispro (Humalog Insulin Sliding Scale) 0 units SUBQ ACHS [facility]; Protocol Stop: 07/04/19 20:59 Last Admin: 05/15/19 17:06 Dose: Not Given Lorazepam (Ativan) 0.5 mg PO Q4H PRN; Protocol PRN Reason: Anxiety Stop: 07/03/19 22:57 Last Admin: 05/13/19 06:53 Dose: 0.5 mg Magnesium Hydroxide (Milk Of Magnesia) 30 ml PO HS PRN PRN Reason: Constipation Magnesium Oxide (Mag-Oxide) 400 mg PO BID [facility] Stop: 07/05/19 08:59 Last Admin: 05/15/19 17:31 Dose: 400 mg Memantine (Namenda) 10 mg PO HS [facility] Stop: 07/04/19 20:59 Last Admin: 05/14/19 21:46 Dose: 10 mg Metoprolol Tartrate (Lopressor) 25 mg PO BID [facility] Stop: 07/05/19 08:59 Last Admin: 05/15/19 17:31 Dose: 25 mg Multivitamins/Vitamin C (Theragran) 1 tab PO DAILY [facility] Stop: 07/04/19 08:59 Last Admin: 05/15/19 09:42 Dose: 1 tab Pantoprazole Sodium (Protonix) 40 mg PO QDAC [facility] Stop: 07/05/19 07:29 Last Admin: 05/15/19 06:47 Dose: 40 mg Quetiapine Fumarate (Seroquel) 25 mg PO DAILY [facility]; Protocol Stop: 07/11/19 08:59 Last Admin: 05/15/19 09:42 Dose: 25 mg Quetiapine Fumarate (Seroquel) 50 mg PO HS [facility]; Protocol Stop: 07/11/19 20:59 Last Admin: 05/14/19 21:47 Dose: 50 mg Vancomycin HCl (Vancomycin Oral) 125 mg PO QID [facility] Stop: 07/10/19 09:59 Last Admin: 05/15/19 17:32 Dose: 125 mg Zolpidem Tartrate (Ambien) 5 mg PO HS PRN PRN Reason: Insomnia Stop: 07/03/19 22:57 Last Admin: 05/13/19 21:33 Dose: 5 mg General: alert, demented HEENT: NC/AT, PERRLA, EOMI, anicteric sclerae, throat clear Neck: Supple, No JVD, No thyromegaly, +2 carotid pulse wo bruit, No LAD, + JVD Lungs: CTAB Cardiovascular: RRR, Normal S1, Normal S2, without murmur Abdomen: soft, non-tender, non-distended Extremities: clear Neurological: no change Internal Medicine Assmt/Plan - Assessment Assessment: 1.DM. 2.CVA. 3.CHRONIC A FIB. 4.C DIFF COLITIS 5.PSYCHOSIS - Plan Plan: CONTINUE ON CURRENT MEDICATION AND DIET. Nutritional Asmnt/Malnutr-PDOC - Dietary Evaluation Malnutrition Findings (Please click <Entered> for more info): Nutritional Asmnt/Malnutrition Start: 05/08/19 13: 00 Text: Status: Complete Freq: Protocol: Document 05/08/19 13:00 MARION (Rec: 05/08/19 13:04 MARION [email or web address]) Nutritional Asmnt/Malnutrition Patient General Information Nutritional Screening Moderate Risk Diagnosis Psychosis Pertinent Medical Hx/Surgical Hx A-FIB, CVA with Lt hemiplegia, DM, Dementia, Hyperlipidemia, Parkinsonism Subjective Information Pt is a 68-year-old male admitted on 05/04 d/t agitation and aggressive behavior. Pt is eating an estimated 75% of meals x3 days (average) Per Meal/Nutrition Activity Record -adequate to meet nutritional needs. Recommend adding Cardiac to Diet Rx to limit fats as pt BMI is 45.73 (obese , class III). Pt was asleep at time of visit today, after lunch. HT: 51 WT: 242 LB (110 kg) ABW: 145 LB (65.68 kg) BMI: 45.73 (Obese, class III) GI: WNL, Soft, Non-tender BM: 05/08 x1 I/O: 1100/1 (+1099) Skin: WNL, Intact King: 16 Diet Order: CCHO 60gm Estimated Energy Needs: (Obese , ABW) 7235-4190 kcals (20-25 kcals/ kg) 53-66g Pro (0.8-1.0 g/kg) 1720-8248 ml (25-30 ml/kg) Pt is eating 75% of meals Per Meal/Nutrition Activity Record . Dietary is currently providing an estimated 2100 kcals and 125 gm Pro, per Pt PO intake this is providing an estimated 1575 kcals and 94gm Pro to meet 100% kcal and 100 +% Pro needs- adequate. Current Diet Order/ Nutrition Support CCHO 60gm Pertinent Medications Maalox (PRN), Lipitor, D50w ( PRN), Glutose 40% (PRN), Glucagen (PRN), INS-SS, MOM ( PRN), Mag-Oxide, Theragran, Protonix Pertinent Labs 05/07: A1c 5.8% POC Glucose (Last 24 hours): 79, 117, 94, 125, 109 Nutritional Hx/Data Height 1.55 m Height (Calculated Centimeters) 154.9 Current Weight (lbs) 109.769 kg Weight (Calculated Kilograms) 109.8 Weight (Calculated Grams) 056464.4 [place] Body Weight 112 LB (50.91 kg) % [place] Body Weight 216 Body Mass Index (BMI) 45.7 Weight Status Morbidly Obese GI Symptoms Last BM 05/08 x1 Skin Integrity/Comment: Skin: WNL, Intact King: 16 Current %PO Good (75-100%) Estimated Nutritional Goals BEE in Kcals: Adj wt of IBW Calories/Kcals/Kg 20-25 Kcals Calculated 1698-5378 Protein: Adj wt of IBW Protein g/k.8-1.0 Protein Calculated 53-66 Fluid: ml 0353-6190 ml (25-30 ml/kg) Nutritional Problem 1. Problem Problem Obesity Etiology r/t consistent energy overconsumption Signs/Symptoms: aeb BMI 45.73, obese class III . Malnutrition Related to Morbid Obesity Malnutrition related to morbid obesity BMI> or equal to 40 Query Text:(Any 1 Criteria met) Malnutrition related to morbid obesity Yes Intervention/Recommendation Comments [facility]. [facility]. 2. Recommend adding Cardiac to Diet Rx to limit fats as pt BMI is 45.73 (obese, class III ). Expected Outcomes/Goals Expected Outcomes/Goals 1. PO intake to continue to meet >75% of nutritional needs . 2. Monitor PO intake, wt, nutrition related labs, and skin integrity. 3. Gradual weight loss is ideal. 4. F/U as moderate risk in 3-5 days, 05/11-05/13.
--- NOTE | 2019-05-15 23:58 | Progress Notes ---
DATE: 05/15/2019 Case was discussed with staff of the patient, reviewed records. The patient continues to be confused, continues to be demented, continues to be inappropriate, continues to be easily agitated. Generally, uncooperative, unable to answer questions. He is compliant with the medication with no side effects, no sedation, no nausea, no extrapyramidal symptoms. Working on trying to adjust his medication. The patient has very poor insight. He is gravely disabled because of his dementia. He also has Parkinson's disease and changing his Aricept to only once a day because he takes 5 mg twice a day to ease his treatment process. We will continue outpatient group therapy, milieu therapy, and adjust medications as needed. [facility]# [id number]
[2019-05-16] MEDS: INSULIN LISPRO SLIDING SCALE 100 UNITS/ML UNIT SUBQ SCH ×4 (06:43→21:51)
[2019-05-16] MEDS: Pantoprazole 40 mg EC Tab PO SCH (06:44)
[2019-05-16] MEDS: Carbidopa/Levodopa 10/100 mg Tab PO SCH ×4 (08:43→21:39)
[2019-05-16] MEDS: Apixaban 5 MG TABLET PO SCH ×2 (08:43→16:51)
[2019-05-16] MEDS: Multivitamin Tab PO SCH (08:44)
[2019-05-16] MEDS: Vancomycin HCL 250 mg /10mL UDC PO SCH ×4 (08:45→21:45)
--- NOTE | 2019-05-16 11:29 | Progress Notes ---
DATE: 05/16/2019 Case was discussed with staff of the patient, reviewed records. The patient continues to stay to himself. He is in isolation because C. difficile. He is sleeping well. He is eating well. Continues to be confused, unable to make safe plan for self-care, unpredictable, impulsive, needing redirection, very poor insight. No side effects with the medication, no sedation, no nausea, no extrapyramidal symptoms. We will continue to work with the patient in group therapy, milieu therapy, and adjust the medications as needed. JOB# [id number]
--- NOTE | 2019-05-16 20:09 | Internal Medicine Prog Note ---
Internal Medicine Subjective - Subjective Service Date: 05/16/19 Patient seen and examined:: with staff (HE IS DOING BETTER) Patient is:: awake, verbal, in bed, talking, confused Per staff patient has:: no adverse event Internal Medicine Objective - Results Recent Labs: Laboratory Last Values POC Glucose 138 MG/DL (70 - 105) H 05/10/19 20:10 - Physical Exam Vitals and I&O: Vital Signs Temp 98.7 F 05/16/19 14:00 Pulse 77 05/16/19 16:52 Resp 18 05/16/19 14:00 BP 128/78 05/16/19 16:52 Pulse Ox 95 05/16/19 14:00 Intake & Output 05/16/19 05/16/19 05/17/19 06:59 18:59 06:59 Intake Total 420 860 Balance 420 860 Intake: Oral 420 740 Other 120 Other: # Voids 1 3 # Bowel Movements 1 1 Active Medications: Current Medications Acetaminophen (Tylenol) 650 mg PO Q4HR PRN PRN Reason: Mild Pain / Temp above 100 Stop: 07/03/19 22:57 Last Admin: 05/16/19 02:53 Dose: 650 mg Al Hydrox/Mg Hydrox/Simethicone (Maalox) 30 ml PO Q4H PRN PRN Reason: GI DISTRESS Stop: 07/03/19 22:57 Atorvastatin Calcium (Lipitor) 40 mg PO HS [facility]; Protocol Stop: 07/04/19 20:59 Last Admin: 05/15/19 20:33 Dose: 40 mg Carbidopa/Levodopa (Sinemet 10 Mg-100 Mg) 1 tab PO QID [facility] Stop: 07/04/19 20:59 Last Admin: 05/16/19 16:51 Dose: 1 tab Dextrose (Glutose 40%) 18.75 gm PO PRN PRN PRN Reason: BS Below 70 & tolerate po Stop: 07/04/19 20:24 Divalproex Sodium (Depakote Dr) 500 mg PO BID [facility]; Protocol Stop: 07/06/19 16:59 Last Admin: 05/16/19 16:51 Dose: 500 mg Donepezil HCl (Aricept) 10 mg PO HS [facility] Stop: 07/14/19 20:59 Last Admin: 05/15/19 20:34 Dose: 10 mg Gabapentin (Neurontin) 300 mg PO BID [facility] Stop: 07/05/19 08:59 Last Admin: 05/16/19 16:51 Dose: 300 mg Glucagon (Glucagen) 1 mg IM PRN PRN PRN Reason: BS Below 70 & not tolerate po Stop: 07/04/19 20:24 Insulin Human Lispro (Humalog Insulin Sliding Scale) 0 units SUBQ ACHS [facility]; Protocol Stop: 07/04/19 20:59 Last Admin: 05/16/19 16:51 Dose: Not Given Lorazepam (Ativan) 0.5 mg PO Q4H PRN; Protocol PRN Reason: Anxiety Stop: 07/03/19 22:57 Last Admin: 05/13/19 06:53 Dose: 0.5 mg Magnesium Hydroxide (Milk Of Magnesia) 30 ml PO HS PRN PRN Reason: Constipation Magnesium Oxide (Mag-Oxide) 400 mg PO BID [facility] Stop: 07/05/19 08:59 Last Admin: 05/16/19 16:52 Dose: 400 mg Memantine (Namenda) 10 mg PO HS [facility] Stop: 07/04/19 20:59 Last Admin: 05/15/19 20:34 Dose: 10 mg Metoprolol Tartrate (Lopressor) 25 mg PO BID [facility] Stop: 07/05/19 08:59 Last Admin: 05/16/19 16:52 Dose: 25 mg Multivitamins/Vitamin C (Theragran) 1 tab PO DAILY [facility] Stop: 07/04/19 08:59 Last Admin: 05/16/19 08:44 Dose: 1 tab Pantoprazole Sodium (Protonix) 40 mg PO QDAC [facility] Stop: 07/05/19 07:29 Last Admin: 05/16/19 06:44 Dose: 40 mg Quetiapine Fumarate (Seroquel) 25 mg PO DAILY [facility]; Protocol Stop: 07/11/19 08:59 Last Admin: 05/16/19 08:45 Dose: 25 mg Quetiapine Fumarate (Seroquel) 50 mg PO HS [facility]; Protocol Stop: 07/11/19 20:59 Last Admin: 05/15/19 20:35 Dose: 50 mg Vancomycin HCl (Vancomycin Oral) 125 mg PO QID [facility] Stop: 07/10/19 09:59 Last Admin: 05/16/19 16:52 Dose: Not Given Zolpidem Tartrate (Ambien) 5 mg PO HS PRN PRN Reason: Insomnia Stop: 07/03/19 22:57 Last Admin: 05/15/19 20:35 Dose: 5 mg General: alert, demented HEENT: NC/AT, PERRLA, EOMI, anicteric sclerae, throat clear Neck: Supple, No JVD, No thyromegaly, +2 carotid pulse wo bruit, No LAD, + JVD Lungs: CTAB Cardiovascular: RRR, Normal S1, Normal S2, without murmur Abdomen: soft, non-tender, non-distended Extremities: clear Neurological: no change Internal Medicine Assmt/Plan - Assessment Assessment: 1.DM. 2.CVA. 3.CHRONIC A FIB. 4.C DIFF COLITIS 5.PSYCHOSIS - Plan Plan: CONTINUE ON CURRENT MEDICATION AND DIET. Nutritional Asmnt/Malnutr-PDOC - Dietary Evaluation Malnutrition Findings (Please click <Entered> for more info): Nutritional Asmnt/Malnutrition Start: 05/08/19 13: 00 Text: Status: Complete Freq: Protocol: Document 05/08/19 13:00 MAR[facility] (Rec: 05/08/19 13:04 MAR[facility] [email or web address]) Nutritional Asmnt/Malnutrition Patient General Information Nutritional Screening Moderate Risk Diagnosis Psychosis Pertinent Medical Hx/Surgical Hx A-FIB, CVA with Lt hemiplegia, DM, Dementia, Hyperlipidemia, Parkinsonism Subjective Information Pt is a 68-year-old male admitted on 05/04 d/t agitation and aggressive behavior. Pt is eating an estimated 75% of meals x3 days (average) Per Meal/Nutrition Activity Record -adequate to meet nutritional needs. Recommend adding Cardiac to Diet Rx to limit fats as pt BMI is 45.73 (obese , class III). Pt was asleep at time of visit today, after lunch. HT: 51 WT: 242 LB (110 kg) ABW: 145 LB (65.68 kg) BMI: 45.73 (Obese, class III) GI: WNL, Soft, Non-tender BM: 10 x1 I/O: 1100/1 (+1099) Skin: WNL, Intact King: 16 Diet Order: CCHO 60gm Estimated Energy Needs: (Obese , ABW) 1924-0337 kcals (20-25 kcals/ kg) 53-66g Pro (0.8-1.0 g/kg) 2272-2983 ml (25-30 ml/kg) Pt is eating 75% of meals Per Meal/Nutrition Activity Record . Dietary is currently providing an estimated 2100 kcals and 125 gm Pro, per Pt PO intake this is providing an estimated 1575 kcals and 94gm Pro to meet 100% kcal and 100 +% Pro needs- adequate. Current Diet Order/ Nutrition Support CCHO 60gm Pertinent Medications Maalox (PRN), Lipitor, D50w ( PRN), Glutose 40% (PRN), Glucagen (PRN), INS-SS, MOM ( PRN), Mag-Oxide, Theragran, Protonix Pertinent Labs 05/07: A1c 5.8% POC Glucose (Last 24 hours): 79, 117, 94, 125, 109 Nutritional Hx/Data Height 1.55 m Height (Calculated Centimeters) 154.9 Current Weight (lbs) 109.769 kg Weight (Calculated Kilograms) 109.8 Weight (Calculated Grams) 602230.4 [place] Body Weight 112 LB (50.91 kg) % [place] Body Weight 216 Body Mass Index (BMI) 45.7 Weight Status Morbidly Obese GI Symptoms Last BM 05/08 x1 Skin Integrity/Comment: Skin: WNL, Intact King: 16 Current %PO Good (75-100%) Estimated Nutritional Goals BEE in Kcals: Adj wt of IBW Calories/Kcals/Kg 20-25 Kcals Calculated 4803-2821 Protein: Adj wt of IBW Protein g/k.8-1.0 Protein Calculated 53-66 Fluid: ml 4380-5750 ml (25-30 ml/kg) Nutritional Problem 1. Problem Problem Obesity Etiology r/t consistent energy overconsumption Signs/Symptoms: aeb BMI 45.73, obese class III . Malnutrition Related to Morbid Obesity Malnutrition related to morbid obesity BMI> or equal to 40 Query Text:(Any 1 Criteria met) Malnutrition related to morbid obesity Yes Intervention/Recommendation Comments 1. Continue with CCHO 60gm diet as ordered. 2. Recommend adding Cardiac to Diet Rx to limit fats as pt BMI is 45.73 (obese, class III ). Expected Outcomes/Goals Expected Outcomes/Goals 1. PO intake to continue to meet >75% of nutritional needs . 2. Monitor PO intake, wt, nutrition related labs, and skin integrity. 3. Gradual weight loss is ideal. 4. F/U as moderate risk in 3-5 days, 05/11-05/13.
[2019-05-17] MEDS: Pantoprazole 40 mg EC Tab PO SCH (06:46)
[2019-05-17] MEDS: INSULIN LISPRO SLIDING SCALE 100 UNITS/ML UNIT SUBQ SCH ×4 (06:53→21:31)
[2019-05-17] MEDS: Multivitamin Tab PO SCH (09:04)
[2019-05-17] MEDS: Carbidopa/Levodopa 10/100 mg Tab PO SCH ×4 (09:04→21:17)
[2019-05-17] MEDS: Apixaban 5 MG TABLET PO SCH ×2 (09:04→17:08)
[2019-05-17] MEDS: Vancomycin HCL 250 mg /10mL UDC PO SCH ×4 (09:07→21:40)
--- NOTE | 2019-05-17 18:39 | Internal Medicine Prog Note ---
Internal Medicine Subjective - Subjective Service Date: 05/17/19 Patient seen and examined:: without staff (HE FELS BETTER,NO DIARREA) Patient is:: awake, verbal, in bed, talking, confused Per staff patient has:: no adverse event Internal Medicine Objective - Results Recent Labs: Laboratory Last Values POC Glucose 99 MG/DL (70 - 105) 05/17/19 16:35 - Physical Exam Vitals and I&O: Vital Signs Temp 98.8 F 05/17/19 14:00 Pulse 66 05/17/19 17:08 Resp 18 05/17/19 14:00 BP 122/68 05/17/19 17:08 Pulse Ox 96 05/17/19 14:00 Intake & Output 05/16/19 05/17/19 05/17/19 18:59 06:59 18:59 Intake Total 436 900 5372 Balance 682 315 8994 Intake: Oral 766 901 0529 Other 120 Other: # Voids 3 3 3 # Bowel Movements 1 1 Active Medications: Current Medications Acetaminophen (Tylenol) 650 mg PO Q4HR PRN PRN Reason: Mild Pain / Temp above 100 Stop: 07/03/19 22:57 Last Admin: 05/17/19 01:22 Dose: 650 mg Al Hydrox/Mg Hydrox/Simethicone (Maalox) 30 ml PO Q4H PRN PRN Reason: GI DISTRESS Stop: 07/03/19 22:57 Atorvastatin Calcium (Lipitor) 40 mg PO HS [facility]; Protocol Stop: 07/04/19 20:59 Last Admin: 05/16/19 21:38 Dose: 40 mg Carbidopa/Levodopa (Sinemet 10 Mg-100 Mg) 1 tab PO QID [facility] Stop: 07/04/19 20:59 Last Admin: 05/17/19 17:08 Dose: 1 tab Dextrose (Glutose 40%) 18.75 gm PO PRN PRN PRN Reason: BS Below 70 & tolerate po Stop: 07/04/19 20:24 Divalproex Sodium (Depakote Dr) 500 mg PO BID [facility]; Protocol Stop: 07/06/19 16:59 Last Admin: 05/17/19 17:08 Dose: 500 mg Donepezil HCl (Aricept) 10 mg PO HS [facility] Stop: 07/14/19 20:59 Last Admin: 05/16/19 21:39 Dose: 10 mg Gabapentin (Neurontin) 300 mg PO BID [facility] Stop: 07/05/19 08:59 Last Admin: 05/17/19 17:08 Dose: 300 mg Glucagon (Glucagen) 1 mg IM PRN PRN PRN Reason: BS Below 70 & not tolerate po Stop: 07/04/19 20:24 Insulin Human Lispro (Humalog Insulin Sliding Scale) 0 units SUBQ ACHS [facility]; Protocol Stop: 07/04/19 20:59 Last Admin: 05/17/19 16:46 Dose: Not Given Lorazepam (Ativan) 0.5 mg PO Q4H PRN; Protocol PRN Reason: Anxiety Stop: 07/03/19 22:57 Last Admin: 05/13/19 06:53 Dose: 0.5 mg Magnesium Hydroxide (Milk Of Magnesia) 30 ml PO HS PRN PRN Reason: Constipation Magnesium Oxide (Mag-Oxide) 400 mg PO BID [facility] Stop: 07/05/19 08:59 Last Admin: 05/17/19 17:08 Dose: 400 mg Memantine (Namenda) 10 mg PO HS [facility] Stop: 07/04/19 20:59 Last Admin: 05/16/19 21:39 Dose: 10 mg Metoprolol Tartrate (Lopressor) 25 mg PO BID [facility] Stop: 07/05/19 08:59 Last Admin: 05/17/19 17:08 Dose: 25 mg Multivitamins/Vitamin C (Theragran) 1 tab PO DAILY [facility] Stop: 07/04/19 08:59 Last Admin: 05/17/19 09:04 Dose: 1 tab Pantoprazole Sodium (Protonix) 40 mg PO QDAC [facility] Stop: 07/05/19 07:29 Last Admin: 05/17/19 06:46 Dose: 40 mg Quetiapine Fumarate (Seroquel) 25 mg PO DAILY [facility]; Protocol Stop: 07/11/19 08:59 Last Admin: 05/17/19 09:04 Dose: 25 mg Quetiapine Fumarate (Seroquel) 50 mg PO HS [facility]; Protocol Stop: 07/11/19 20:59 Last Admin: 05/16/19 21:39 Dose: 50 mg Vancomycin HCl (Vancomycin Oral) 125 mg PO QID [facility] Stop: 07/10/19 09:59 Last Admin: 05/17/19 17:09 Dose: 125 mg Zolpidem Tartrate (Ambien) 5 mg PO HS PRN PRN Reason: Insomnia Stop: 07/03/19 22:57 Last Admin: 05/15/19 20:35 Dose: 5 mg General: alert, demented HEENT: NC/AT, PERRLA, EOMI, anicteric sclerae, throat clear Neck: Supple, No JVD, No thyromegaly, +2 carotid pulse wo bruit, No LAD, + JVD Lungs: CTAB Cardiovascular: RRR, Normal S1, Normal S2, without murmur Abdomen: soft, non-tender, non-distended Extremities: clear Neurological: no change Internal Medicine Assmt/Plan - Assessment Assessment: 1.DM. 2.CVA. 3.CHRONIC A FIB. 4.C DIFF COLITIS 5.PSYCHOSIS - Plan Plan: CONTINUE ON CURRENT MEDICATION AND DIET. Nutritional Asmnt/Malnutr-PDOC - Dietary Evaluation Malnutrition Findings (Please click <Entered> for more info): Nutritional Asmnt/Malnutrition Start: 05/08/19 13: 00 Text: Status: Complete Freq: Protocol: Document 05/08/19 13:00 [facility] (Rec: 05/08/19 13:04 [facility] [email or web address]) Nutritional Asmnt/Malnutrition Patient General Information Nutritional Screening Moderate Risk Diagnosis Psychosis Pertinent Medical Hx/Surgical Hx A-FIB, CVA with Lt hemiplegia, DM, Dementia, Hyperlipidemia, Parkinsonism Subjective Information Pt is a 68-year-old male admitted on 05/04 d/t agitation and aggressive behavior. Pt is eating an estimated 75% of meals x3 days (average) Per Meal/Nutrition Activity Record -adequate to meet nutritional needs. Recommend adding Cardiac to Diet Rx to limit fats as pt BMI is 45.73 (obese , class III). Pt was asleep at time of visit today, after lunch. HT: 51 WT: 242 LB (110 kg) ABW: 145 LB (65.68 kg) BMI: 45.73 (Obese, class III) GI: WNL, Soft, Non-tender BM: 10 x1 I/O: 1100/1 (+1099) Skin: WNL, Intact King: 16 Diet Order: CCHO 60gm Estimated Energy Needs: (Obese , ABW) 8415-1017 kcals (20-25 kcals/ kg) 53-66g Pro (0.8-1.0 g/kg) 4193-7193 ml (25-30 ml/kg) Pt is eating 75% of meals Per Meal/Nutrition Activity Record . Dietary is currently providing an estimated 2100 kcals and 125 gm Pro, per Pt PO intake this is providing an estimated 1575 kcals and 94gm Pro to meet 100% kcal and 100 +% Pro needs- adequate. Current Diet Order/ Nutrition Support CCHO 60gm Pertinent Medications Maalox (PRN), Lipitor, D50w ( PRN), Glutose 40% (PRN), Glucagen (PRN), INS-SS, MOM ( PRN), Mag-Oxide, Theragran, Protonix Pertinent Labs 05/07: A1c 5.8% POC Glucose (Last 24 hours): 79, 117, 94, 125, 109 Nutritional Hx/Data Height 1.55 m Height (Calculated Centimeters) 154.9 Current Weight (lbs) 109.769 kg Weight (Calculated Kilograms) 109.8 Weight (Calculated Grams) 136288.4 [place] Body Weight 112 LB (50.91 kg) % [place] Body Weight 216 Body Mass Index (BMI) 45.7 Weight Status Morbidly Obese GI Symptoms Last BM 05/08 x1 Skin Integrity/Comment: Skin: WNL, Intact King: 16 Current %PO Good (75-100%) Estimated Nutritional Goals BEE in Kcals: Adj wt of IBW Calories/Kcals/Kg 20-25 Kcals Calculated 3358-4300 Protein: Adj wt of IBW Protein g/k.8-1.0 Protein Calculated 53-66 Fluid: ml 8184-9257 ml (25-30 ml/kg) Nutritional Problem 1. Problem Problem Obesity Etiology r/t consistent energy overconsumption Signs/Symptoms: aeb BMI 45.73, obese class III . Malnutrition Related to Morbid Obesity Malnutrition related to morbid obesity BMI> or equal to 40 Query Text:(Any 1 Criteria met) Malnutrition related to morbid obesity Yes Intervention/Recommendation Comments 1. Continue with CCHO 60gm diet as ordered. 2. Recommend adding Cardiac to Diet Rx to limit fats as pt BMI is 45.73 (obese, class III ). Expected Outcomes/Goals Expected Outcomes/Goals 1. PO intake to continue to meet >75% of nutritional needs . 2. Monitor PO intake, wt, nutrition related labs, and skin integrity. 3. Gradual weight loss is ideal. 4. F/U as moderate risk in 3-5 days, 05/11-05/13.
--- NOTE | 2019-05-17 20:16 | Progress Notes ---
DATE: 05/17/[address] Curry. Case was discussed with staff of the patient, reviewed records. The patient continues to stay in bed. Today, he was more alert. He is not making sense. He continues to be unpredictable, impulsive with very poor insight, poor memory. Unable to make safe plan for self-care. No side effects from the medication, no sedation, no nausea, easily agitated, disorganized, demented, and confused. We will continue to work with the patient in group therapy, milieu therapy, and adjust medication as needed. JOB# [id number] MTDD
[2019-05-18] MEDS: INSULIN LISPRO SLIDING SCALE 100 UNITS/ML UNIT SUBQ SCH ×4 (06:47→22:15)
[2019-05-18] MEDS: Pantoprazole 40 mg EC Tab PO SCH (06:56)
[2019-05-18] MEDS: Multivitamin Tab PO SCH (08:13)
[2019-05-18] MEDS: Carbidopa/Levodopa 10/100 mg Tab PO SCH ×4 (08:14→21:45)
[2019-05-18] MEDS: Apixaban 5 MG TABLET PO SCH ×2 (08:16→17:10)
[2019-05-18] MEDS: Vancomycin HCL 250 mg /10mL UDC PO SCH ×4 (08:20→21:45)
--- NOTE | 2019-05-18 21:19 | Internal Medicine Prog Note ---
Internal Medicine Subjective - Subjective Service Date: 05/18/19 Patient seen and examined:: without staff (HE FEELS WELL) Patient is:: awake, verbal, in bed, talking, confused Per staff patient has:: no adverse event Internal Medicine Objective - Results Recent Labs: Laboratory Last Values POC Glucose 147 MG/DL (70 - 105) H 05/18/19 20:30 - Physical Exam Vitals and I&O: Vital Signs Temp 97.8 F 05/18/19 14:00 Pulse 70 05/18/19 17:10 Resp 20 05/18/19 14:00 BP 119/70 05/18/19 17:10 Pulse Ox 96 05/18/19 14:00 Intake & Output 05/18/19 05/18/19 05/19/19 06:59 18:59 06:59 Intake Total 120 800 Balance 120 800 Intake: Oral 120 800 Other: # Voids 3 3 # Bowel Movements 1 Active Medications: Current Medications Acetaminophen (Tylenol) 650 mg PO Q4HR PRN PRN Reason: Mild Pain / Temp above 100 Stop: 07/03/19 22:57 Last Admin: 05/17/19 01:22 Dose: 650 mg Al Hydrox/Mg Hydrox/Simethicone (Maalox) 30 ml PO Q4H PRN PRN Reason: GI DISTRESS Stop: 07/03/19 22:57 Atorvastatin Calcium (Lipitor) 40 mg PO HS [facility]; Protocol Stop: 07/04/19 20:59 Last Admin: 05/17/19 21:18 Dose: 40 mg Carbidopa/Levodopa (Sinemet 10 Mg-100 Mg) 1 tab PO QID [facility] Stop: 07/04/19 20:59 Last Admin: 05/18/19 17:09 Dose: 1 tab Dextrose (Glutose 40%) 18.75 gm PO PRN PRN PRN Reason: BS Below 70 & tolerate po Stop: 07/04/19 20:24 Divalproex Sodium (Depakote Dr) 500 mg PO BID [facility]; Protocol Stop: 07/06/19 16:59 Last Admin: 05/18/19 17:09 Dose: 500 mg Donepezil HCl (Aricept) 10 mg PO HS [facility] Stop: 07/14/19 20:59 Last Admin: 05/17/19 21:18 Dose: 10 mg Gabapentin (Neurontin) 300 mg PO BID [facility] Stop: 07/05/19 08:59 Last Admin: 05/18/19 17:09 Dose: 300 mg Glucagon (Glucagen) 1 mg IM PRN PRN PRN Reason: BS Below 70 & not tolerate po Stop: 07/04/19 20:24 Insulin Human Lispro (Humalog Insulin Sliding Scale) 0 units SUBQ ACHS [facility]; Protocol Stop: 07/04/19 20:59 Last Admin: 05/18/19 16:52 Dose: Not Given Lorazepam (Ativan) 0.5 mg PO Q4H PRN; Protocol PRN Reason: Anxiety Stop: 07/03/19 22:57 Last Admin: 05/18/19 08:14 Dose: 0.5 mg Magnesium Hydroxide (Milk Of Magnesia) 30 ml PO HS PRN PRN Reason: Constipation Magnesium Oxide (Mag-Oxide) 400 mg PO BID [facility] Stop: 07/05/19 08:59 Last Admin: 05/18/19 17:09 Dose: 400 mg Memantine (Namenda) 10 mg PO HS [facility] Stop: 07/04/19 20:59 Last Admin: 05/17/19 21:17 Dose: 10 mg Metoprolol Tartrate (Lopressor) 25 mg PO BID [facility] Stop: 07/05/19 08:59 Last Admin: 05/18/19 17:10 Dose: 25 mg Multivitamins/Vitamin C (Theragran) 1 tab PO DAILY [facility] Stop: 07/04/19 08:59 Last Admin: 05/18/19 08:13 Dose: 1 tab Pantoprazole Sodium (Protonix) 40 mg PO QDAC [facility] Stop: 07/05/19 07:29 Last Admin: 05/18/19 06:56 Dose: 40 mg Quetiapine Fumarate (Seroquel) 25 mg PO DAILY [facility]; Protocol Stop: 07/11/19 08:59 Last Admin: 05/18/19 08:14 Dose: 25 mg Quetiapine Fumarate (Seroquel) 50 mg PO HS [facility]; Protocol Stop: 07/11/19 20:59 Last Admin: 05/17/19 21:18 Dose: 50 mg Vancomycin HCl (Vancomycin Oral) 125 mg PO QID [facility] Stop: 07/10/19 09:59 Last Admin: 05/18/19 17:10 Dose: 125 mg Zolpidem Tartrate (Ambien) 5 mg PO HS PRN PRN Reason: Insomnia Stop: 07/03/19 22:57 Last Admin: 05/15/19 20:35 Dose: 5 mg General: alert, demented HEENT: NC/AT, PERRLA, EOMI, anicteric sclerae, throat clear Neck: Supple, No JVD, No thyromegaly, +2 carotid pulse wo bruit, No LAD, + JVD Lungs: CTAB Cardiovascular: RRR, Normal S1, Normal S2, without murmur Abdomen: soft, non-tender, non-distended Extremities: clear Neurological: no change Internal Medicine Assmt/Plan - Assessment Assessment: 1.DM. 2.CVA. 3.CHRONIC A FIB. 4.C DIFF COLITIS 5.PSYCHOSIS - Plan Plan: CONTINUE ON CURRENT MEDICATION AND DIET. Nutritional Asmnt/Malnutr-PDOC - Dietary Evaluation Malnutrition Findings (Please click <Entered> for more info): Nutritional Asmnt/Malnutrition Start: 05/08/19 13: 00 Text: Status: Complete Freq: Protocol: Document 05/08/19 13:00 [facility] (Rec: 05/08/19 13:04 [facility] [email or web address]) Nutritional Asmnt/Malnutrition Patient General Information Nutritional Screening Moderate Risk Diagnosis Psychosis Pertinent Medical Hx/Surgical Hx A-FIB, CVA with Lt hemiplegia, DM, Dementia, Hyperlipidemia, Parkinsonism Subjective Information Pt is a 68-year-old male admitted on 05/04 d/t agitation and aggressive behavior. Pt is eating an estimated 75% of meals x3 days (average) Per Meal/Nutrition Activity Record -adequate to meet nutritional needs. Recommend adding Cardiac to Diet Rx to limit fats as pt BMI is 45.73 (obese , class III). Pt was asleep at time of visit today, after lunch. HT: 51 WT: 242 LB (110 kg) ABW: 145 LB (65.68 kg) BMI: 45.73 (Obese, class III) GI: WNL, Soft, Non-tender BM: 10 x1 I/O: 1100/1 (+1099) Skin: WNL, Intact King: 16 Diet Order: CCHO 60gm Estimated Energy Needs: (Obese , ABW) 5329-3124 kcals (20-25 kcals/ kg) 53-66g Pro (0.8-1.0 g/kg) 1515-3155 ml (25-30 ml/kg) Pt is eating 75% of meals Per Meal/Nutrition Activity Record . Dietary is currently providing an estimated 2100 kcals and 125 gm Pro, per Pt PO intake this is providing an estimated 1575 kcals and 94gm Pro to meet 100% kcal and 100 +% Pro needs- adequate. Current Diet Order/ Nutrition Support CCHO 60gm Pertinent Medications Maalox (PRN), Lipitor, D50w ( PRN), Glutose 40% (PRN), Glucagen (PRN), INS-SS, MOM ( PRN), Mag-Oxide, Theragran, Protonix Pertinent Labs 05/07: A1c 5.8% POC Glucose (Last 24 hours): 79, 117, 94, 125, 109 Nutritional Hx/Data Height 1.55 m Height (Calculated Centimeters) 154.9 Current Weight (lbs) 109.769 kg Weight (Calculated Kilograms) 109.8 Weight (Calculated Grams) 657959.4 [place] Body Weight 112 LB (50.91 kg) % [place] Body Weight 216 Body Mass Index (BMI) 45.7 Weight Status Morbidly Obese GI Symptoms Last BM 05/08 x1 Skin Integrity/Comment: Skin: WNL, Intact King: 16 Current %PO Good (75-100%) Estimated Nutritional Goals BEE in Kcals: Adj wt of IBW Calories/Kcals/Kg 20-25 Kcals Calculated 4952-5928 Protein: Adj wt of IBW Protein g/k.8-1.0 Protein Calculated 53-66 Fluid: ml 8558-9674 ml (25-30 ml/kg) Nutritional Problem 1. Problem Problem Obesity Etiology r/t consistent energy overconsumption Signs/Symptoms: aeb BMI 45.73, obese class III . Malnutrition Related to Morbid Obesity Malnutrition related to morbid obesity BMI> or equal to 40 Query Text:(Any 1 Criteria met) Malnutrition related to morbid obesity Yes Intervention/Recommendation Comments 1. Continue with CCHO 60gm diet as ordered. 2. Recommend adding Cardiac to Diet Rx to limit fats as pt BMI is 45.73 (obese, class III ). Expected Outcomes/Goals Expected Outcomes/Goals 1. PO intake to continue to meet >75% of nutritional needs . 2. Monitor PO intake, wt, nutrition related labs, and skin integrity. 3. Gradual weight loss is ideal. 4. F/U as moderate risk in 3-5 days, 05/11-05/13.
--- NOTE | 2019-05-19 01:21 | Progress Notes ---
DATE: 05/18/2019 Case was discussed with staff of the patient, reviewed records. The patient continues to be confused, unable to participate in meaningful conversation or make safe plan for self-care. He is unpredictable, impulsive, needing redirection. He continues to stay in bed, isolating himself. No side effects of the medication, no sedation, no nausea. Also, working on discharge plan. The patient is on Aricept 10 mg at bedtime that I increased 2 days ago and he is on Sinemet and Depakote. I will be ordering a Depakote level for him. I will continue outpatient group therapy, milieu therapy, adjust medication as needed. JOB# [id number]
[2019-05-19] MEDS: INSULIN LISPRO SLIDING SCALE 100 UNITS/ML UNIT SUBQ SCH ×4 (07:10→21:03)
[2019-05-19] MEDS: Pantoprazole 40 mg EC Tab PO SCH (07:10)
[2019-05-19] MEDS: Carbidopa/Levodopa 10/100 mg Tab PO SCH ×4 (09:43→21:02)
[2019-05-19] MEDS: Apixaban 5 MG TABLET PO SCH ×2 (09:44→17:49)
[2019-05-19] MEDS: Multivitamin Tab PO SCH (09:44)
--- NOTE | 2019-05-19 15:20 | General Progress Note ---
Subjective - Review of Systems Service Date: 05/19/19 Subjective: RESTING COMFORTABLY IN BED NO DISTRESS Objective - Results Recent Labs: Laboratory Last Values POC Glucose 97 MG/DL (70 - 105) 05/19/19 11:31 - Physical Exam Vitals and I&O: Vital Signs Temp 96.5 F 05/19/19 14:53 Pulse 76 05/19/19 14:53 Resp 20 05/19/19 14:53 BP 98/62 05/19/19 14:53 Pulse Ox 95 05/19/19 14:53 Intake & Output 05/18/19 05/19/19 05/19/19 18:59 06:59 18:59 Intake Total 800 240 Balance 800 240 Intake: Oral 800 120 Other 120 Other: # Voids 3 2 # Bowel Movements 1 1 Active Medications: Current Medications Acetaminophen (Tylenol) 650 mg PO Q4HR PRN PRN Reason: Mild Pain / Temp above 100 Stop: 07/03/19 22:57 Last Admin: 05/17/19 01:22 Dose: 650 mg Al Hydrox/Mg Hydrox/Simethicone (Maalox) 30 ml PO Q4H PRN PRN Reason: GI DISTRESS Stop: 07/03/19 22:57 Atorvastatin Calcium (Lipitor) 40 mg PO HS [facility]; Protocol Stop: 07/04/19 20:59 Last Admin: 05/18/19 21:45 Dose: 40 mg Carbidopa/Levodopa (Sinemet 10 Mg-100 Mg) 1 tab PO QID [facility] Stop: 07/04/19 20:59 Last Admin: 05/19/19 13:33 Dose: 1 tab Dextrose (Glutose 40%) 18.75 gm PO PRN PRN PRN Reason: BS Below 70 & tolerate po Stop: 07/04/19 20:24 Divalproex Sodium (Depakote Dr) 500 mg PO BID [facility]; Protocol Stop: 07/06/19 16:59 Last Admin: 05/19/19 09:44 Dose: 500 mg Donepezil HCl (Aricept) 10 mg PO HS [facility] Stop: 07/14/19 20:59 Last Admin: 05/18/19 21:45 Dose: 10 mg Gabapentin (Neurontin) 300 mg PO BID [facility] Stop: 07/05/19 08:59 Last Admin: 05/19/19 09:44 Dose: 300 mg Glucagon (Glucagen) 1 mg IM PRN PRN PRN Reason: BS Below 70 & not tolerate po Stop: 07/04/19 20:24 Insulin Human Lispro (Humalog Insulin Sliding Scale) 0 units SUBQ ACHS [facility]; Protocol Stop: 07/04/19 20:59 Last Admin: 05/19/19 12:08 Dose: Not Given Lorazepam (Ativan) 0.5 mg PO Q4H PRN; Protocol PRN Reason: Anxiety Stop: 07/03/19 22:57 Last Admin: 05/18/19 08:14 Dose: 0.5 mg Magnesium Hydroxide (Milk Of Magnesia) 30 ml PO HS PRN PRN Reason: Constipation Magnesium Oxide (Mag-Oxide) 400 mg PO BID [facility] Stop: 07/05/19 08:59 Last Admin: 05/19/19 09:44 Dose: 400 mg Memantine (Namenda) 10 mg PO HS [facility] Stop: 07/04/19 20:59 Last Admin: 05/18/19 21:45 Dose: 10 mg Metoprolol Tartrate (Lopressor) 25 mg PO BID [facility] Stop: 07/05/19 08:59 Last Admin: 05/19/19 09:44 Dose: 25 mg Multivitamins/Vitamin C (Theragran) 1 tab PO DAILY [facility] Stop: 07/04/19 08:59 Last Admin: 05/19/19 09:44 Dose: 1 tab Pantoprazole Sodium (Protonix) 40 mg PO QDAC [facility] Stop: 07/05/19 07:29 Last Admin: 05/19/19 07:10 Dose: 40 mg Quetiapine Fumarate (Seroquel) 25 mg PO DAILY [facility]; Protocol Stop: 07/11/19 08:59 Last Admin: 05/19/19 09:44 Dose: 25 mg Quetiapine Fumarate (Seroquel) 50 mg PO HS [facility]; Protocol Stop: 07/11/19 20:59 Last Admin: 05/18/19 21:45 Dose: 50 mg Zolpidem Tartrate (Ambien) 5 mg PO HS PRN PRN Reason: Insomnia Stop: 07/03/19 22:57 Last Admin: 05/18/19 23:41 Dose: 5 mg General: No acute distress HEENT: PERRLA, EOMI Neck: Supple, JVD, Thyromegaly Cardiovascular: Regular rate, Normal S1, Normal S2 Lungs: Clear to auscultation Abdomen: Bowel sounds, Soft Assessment/Plan - Assessment Assessment: DM CVA A.FIB DEMENTIA C DIFF COLITIS - Plan Plan: CONTINUE CURRENT TREATMENT Nutritional Asmnt/Malnutr-PDOC - Dietary Evaluation Malnutrition Findings (Please click <Entered> for more info): Nutritional Asmnt/Malnutrition Start: 05/08/19 13: 00 Text: Status: Complete Freq: Protocol: Document 05/08/19 13:00 [facility] (Rec: 05/08/19 13:04 MAR[facility] [email or web address]) Nutritional Asmnt/Malnutrition Patient General Information Nutritional Screening Moderate Risk Diagnosis Psychosis Pertinent Medical Hx/Surgical Hx A-FIB, CVA with Lt hemiplegia, DM, Dementia, Hyperlipidemia, Parkinsonism Subjective Information Pt is a 68-year-old male admitted on 05/04 d/t agitation and aggressive behavior. Pt is eating an estimated 75% of meals x3 days (average) Per Meal/Nutrition Activity Record -adequate to meet nutritional needs. Recommend adding Cardiac to Diet Rx to limit fats as pt BMI is 45.73 (obese , class III). Pt was asleep at time of visit today, after lunch. HT: 51 WT: 242 LB (110 kg) ABW: 145 LB (65.68 kg) BMI: 45.73 (Obese, class III) GI: WNL, Soft, Non-tender BM: 10/ x1 I/O: 1100/1 (+1099) Skin: WNL, Intact King: 16 Diet Order: CCHO 60gm Estimated Energy Needs: (Obese , ABW) 4596-1249 kcals (20-25 kcals/ kg) 53-66g Pro (0.8-1.0 g/kg) 9542-9137 ml (25-30 ml/kg) Pt is eating 75% of meals Per Meal/Nutrition Activity Record . Dietary is currently providing an estimated 2100 kcals and 125 gm Pro, per Pt PO intake this is providing an estimated 1575 kcals and 94gm Pro to meet 100% kcal and 100 +% Pro needs- adequate. Current Diet Order/ Nutrition Support CCHO 60gm Pertinent Medications Maalox (PRN), Lipitor, D50w ( PRN), Glutose 40% (PRN), Glucagen (PRN), INS-SS, MOM ( PRN), Mag-Oxide, Theragran, Protonix Pertinent Labs 05/07: A1c 5.8% POC Glucose (Last 24 hours): 79, 117, 94, 125, 109 Nutritional Hx/Data Height 1.55 m Height (Calculated Centimeters) 154.9 Current Weight (lbs) 109.769 kg Weight (Calculated Kilograms) 109.8 Weight (Calculated Grams) 662102.4 [place] Body Weight 112 LB (50.91 kg) % [place] Body Weight 216 Body Mass Index (BMI) 45.7 Weight Status Morbidly Obese GI Symptoms Last BM 05/08 x1 Skin Integrity/Comment: Skin: WNL, Intact King: 16 Current %PO Good (75-100%) Estimated Nutritional Goals BEE in Kcals: Adj wt of IBW Calories/Kcals/Kg 20-25 Kcals Calculated 8578-6153 Protein: Adj wt of IBW Protein g/k.8-1.0 Protein Calculated 53-66 Fluid: ml 0459-3577 ml (25-30 ml/kg) Nutritional Problem 1. Problem Problem Obesity Etiology r/t consistent energy overconsumption Signs/Symptoms: aeb BMI 45.73, obese class III . Malnutrition Related to Morbid Obesity Malnutrition related to morbid obesity BMI> or equal to 40 Query Text:(Any 1 Criteria met) Malnutrition related to morbid obesity Yes Intervention/Recommendation Comments 1. Continue with CCHO 60gm diet as ordered. 2. Recommend adding Cardiac to Diet Rx to limit fats as pt BMI is 45.73 (obese, class III ). Expected Outcomes/Goals Expected Outcomes/Goals 1. PO intake to continue to meet >75% of nutritional needs . 2. Monitor PO intake, wt, nutrition related labs, and skin integrity. 3. Gradual weight loss is ideal. 4. F/U as moderate risk in 3-5 days, 05/11-05/13.
--- NOTE | 2019-05-20 02:13 | Progress Notes ---
DATE: 05/19/2019 SUBJECTIVE: The patient was seen and evaluated. The patient's chart reviewed. Covering for Dr. Curry. IDENTIFYING DATA: A 68-year-old male. Nursing staff reporting that throughout the day, he does well. In the late afternoon, he becomes more irritable, suspicious. Today on [id number] evaluation, the patient continues to be isolative, withdrawing himself and easily agitated, unable to keep minimal conversation. He is mostly just preoccupied about going home. MENTAL STATUS EXAMINATION: Irritable, confused and disorganized. ASSESSMENT AND PLAN: Dementia with behavior disturbances. We will continue with the recent addition of the Aricept. This was recently added by Dr. Murray without complications or side effects to medications. JOB# [id number]
[2019-05-20] MEDS: INSULIN LISPRO SLIDING SCALE 100 UNITS/ML UNIT SUBQ SCH ×4 (07:04→20:33)
[2019-05-20] MEDS: Pantoprazole 40 mg EC Tab PO SCH (07:05)
[2019-05-20] MEDS: Apixaban 5 MG TABLET PO SCH ×2 (09:16→17:52)
[2019-05-20] MEDS: Carbidopa/Levodopa 10/100 mg Tab PO SCH ×4 (09:16→20:32)
[2019-05-20] MEDS: Multivitamin Tab PO SCH (09:17)
--- NOTE | 2019-05-20 14:16 | General Progress Note ---
Subjective - Review of Systems Service Date: 05/20/19 Subjective: RESTING COMFORTABLY IN BED NO DISTRESS Objective - Results Recent Labs: Laboratory Last Values POC Glucose 97 MG/DL (70 - 105) 05/19/19 11:31 - Physical Exam Vitals and I&O: Vital Signs Temp 97.8 F 05/19/19 21:02 Pulse 71 05/20/19 09:17 Resp 17 05/20/19 08:00 BP 130/74 05/20/19 09:17 Pulse Ox 97 05/19/19 21:02 Intake & Output 05/19/19 05/20/19 05/20/19 18:59 06:59 18:59 Intake Total 850 240 Output Total 1 Balance 850 239 Intake: Oral 850 240 Output: Urine/Stool Mix 1 Other: # Voids 3 1 # Bowel Movements 0 1 Active Medications: Current Medications Acetaminophen (Tylenol) 650 mg PO Q4HR PRN PRN Reason: Mild Pain / Temp above 100 Stop: 07/03/19 22:57 Last Admin: 05/17/19 01:22 Dose: 650 mg Al Hydrox/Mg Hydrox/Simethicone (Maalox) 30 ml PO Q4H PRN PRN Reason: GI DISTRESS Stop: 07/03/19 22:57 Atorvastatin Calcium (Lipitor) 40 mg PO HS [facility]; Protocol Stop: 07/04/19 20:59 Last Admin: 05/19/19 21:01 Dose: 40 mg Carbidopa/Levodopa (Sinemet 10 Mg-100 Mg) 1 tab PO QID [facility] Stop: 07/04/19 20:59 Last Admin: 05/20/19 13:47 Dose: 1 tab Dextrose (Glutose 40%) 18.75 gm PO PRN PRN PRN Reason: BS Below 70 & tolerate po Stop: 07/04/19 20:24 Divalproex Sodium (Depakote Dr) 500 mg PO BID [facility]; Protocol Stop: 07/06/19 16:59 Last Admin: 05/20/19 09:17 Dose: 500 mg Donepezil HCl (Aricept) 10 mg PO HS [facility] Stop: 07/14/19 20:59 Last Admin: 05/19/19 21:02 Dose: 10 mg Gabapentin (Neurontin) 300 mg PO BID [facility] Stop: 07/05/19 08:59 Last Admin: 05/20/19 09:17 Dose: 300 mg Glucagon (Glucagen) 1 mg IM PRN PRN PRN Reason: BS Below 70 & not tolerate po Stop: 07/04/19 20:24 Insulin Human Lispro (Humalog Insulin Sliding Scale) 0 units SUBQ ACHS [facility]; Protocol Stop: 07/04/19 20:59 Last Admin: 05/20/19 11:36 Dose: Not Given Lorazepam (Ativan) 0.5 mg PO Q4H PRN; Protocol PRN Reason: Anxiety Stop: 07/03/19 22:57 Last Admin: 05/18/19 08:14 Dose: 0.5 mg Magnesium Hydroxide (Milk Of Magnesia) 30 ml PO HS PRN PRN Reason: Constipation Magnesium Oxide (Mag-Oxide) 400 mg PO BID [facility] Stop: 07/05/19 08:59 Last Admin: 05/20/19 09:17 Dose: 400 mg Memantine (Namenda) 10 mg PO HS [facility] Stop: 07/04/19 20:59 Last Admin: 05/19/19 21:04 Dose: 10 mg Metoprolol Tartrate (Lopressor) 25 mg PO BID [facility] Stop: 07/05/19 08:59 Last Admin: 05/20/19 09:17 Dose: 25 mg Multivitamins/Vitamin C (Theragran) 1 tab PO DAILY [facility] Stop: 07/04/19 08:59 Last Admin: 05/20/19 09:17 Dose: 1 tab Pantoprazole Sodium (Protonix) 40 mg PO QDAC [facility] Stop: 07/05/19 07:29 Last Admin: 05/20/19 07:05 Dose: 40 mg Quetiapine Fumarate (Seroquel) 25 mg PO DAILY [facility]; Protocol Stop: 07/11/19 08:59 Last Admin: 05/20/19 09:16 Dose: 25 mg Quetiapine Fumarate (Seroquel) 50 mg PO HS [facility]; Protocol Stop: 07/11/19 20:59 Last Admin: 05/19/19 21:04 Dose: 50 mg Zolpidem Tartrate (Ambien) 5 mg PO HS PRN PRN Reason: Insomnia Stop: 07/03/19 22:57 Last Admin: 05/19/19 21:04 Dose: 5 mg General: No acute distress HEENT: PERRLA, EOMI Neck: Supple, JVD, Thyromegaly Cardiovascular: Regular rate, Normal S1, Normal S2 Lungs: Clear to auscultation Abdomen: Bowel sounds, Soft Assessment/Plan - Assessment Assessment: DM CVA A.FIB DEMENTIA C DIFF COLITIS - Plan Plan: CONTINUE CURRENT TREATMENT Nutritional Asmnt/Malnutr-PDOC - Dietary Evaluation Malnutrition Findings (Please click <Entered> for more info): Nutritional Asmnt/Malnutrition Start: 05/08/19 13: 00 Text: Status: Complete Freq: Protocol: Document 05/08/19 13:00 [facility] (Rec: 05/08/19 13:04 [facility] [email or web address]) Nutritional Asmnt/Malnutrition Patient General Information Nutritional Screening Moderate Risk Diagnosis Psychosis Pertinent Medical Hx/Surgical Hx A-FIB, CVA with Lt hemiplegia, DM, Dementia, Hyperlipidemia, Parkinsonism Subjective Information Pt is a 68-year-old male admitted on 05/04 d/t agitation and aggressive behavior. Pt is eating an estimated 75% of meals x3 days (average) Per Meal/Nutrition Activity Record -adequate to meet nutritional needs. Recommend adding Cardiac to Diet Rx to limit fats as pt BMI is 45.73 (obese , class III). Pt was asleep at time of visit today, after lunch. HT: 51 WT: 242 LB (110 kg) ABW: 145 LB (65.68 kg) BMI: 45.73 (Obese, class III) GI: WNL, Soft, Non-tender BM: 10/ x1 I/O: 1100/1 (+1099) Skin: WNL, Intact King: 16 Diet Order: CCHO 60gm Estimated Energy Needs: (Obese , ABW) 6448-9884 kcals (20-25 kcals/ kg) 53-66g Pro (0.8-1.0 g/kg) 0783-8420 ml (25-30 ml/kg) Pt is eating 75% of meals Per Meal/Nutrition Activity Record . Dietary is currently providing an estimated 2100 kcals and 125 gm Pro, per Pt PO intake this is providing an estimated 1575 kcals and 94gm Pro to meet 100% kcal and 100 +% Pro needs- adequate. Current Diet Order/ Nutrition Support CCHO 60gm Pertinent Medications Maalox (PRN), Lipitor, D50w ( PRN), Glutose 40% (PRN), Glucagen (PRN), INS-SS, MOM ( PRN), Mag-Oxide, Theragran, Protonix Pertinent Labs 05/07: A1c 5.8% POC Glucose (Last 24 hours): 79, 117, 94, 125, 109 Nutritional Hx/Data Height 1.55 m Height (Calculated Centimeters) 154.9 Current Weight (lbs) 109.769 kg Weight (Calculated Kilograms) 109.8 Weight (Calculated Grams) 584393.4 [place] Body Weight 112 LB (50.91 kg) % [place] Body Weight 216 Body Mass Index (BMI) 45.7 Weight Status Morbidly Obese GI Symptoms Last BM 05/08 x1 Skin Integrity/Comment: Skin: WNL, Intact King: 16 Current %PO Good (75-100%) Estimated Nutritional Goals BEE in Kcals: Adj wt of IBW Calories/Kcals/Kg 20-25 Kcals Calculated 8159-3675 Protein: Adj wt of IBW Protein g/k.8-1.0 Protein Calculated 53-66 Fluid: ml 3708-7645 ml (25-30 ml/kg) Nutritional Problem 1. Problem Problem Obesity Etiology r/t consistent energy overconsumption Signs/Symptoms: aeb BMI 45.73, obese class III . Malnutrition Related to Morbid Obesity Malnutrition related to morbid obesity BMI> or equal to 40 Query Text:(Any 1 Criteria met) Malnutrition related to morbid obesity Yes Intervention/Recommendation Comments 1. Continue with CCHO 60gm diet as ordered. 2. Recommend adding Cardiac to Diet Rx to limit fats as pt BMI is 45.73 (obese, class III ). Expected Outcomes/Goals Expected Outcomes/Goals 1. PO intake to continue to meet >75% of nutritional needs . 2. Monitor PO intake, wt, nutrition related labs, and skin integrity. 3. Gradual weight loss is ideal. 4. F/U as moderate risk in 3-5 days, 05/11-05/13.
--- NOTE | 2019-05-20 21:11 | Progress Notes ---
DATE: 05/20/2019 SUBJECTIVE: The patient was seen and evaluated. The patient's chart reviewed. Overnight, no acute events reported. Today on [id number] evaluation, the patient mostly preoccupied about going home. He denies any chest pains or palpitations. At times irritable, needs a lot of redirections to maintain a simple conversation. MENTAL STATUS EXAMINATION: Disorganized, irritable, agitated. ASSESSMENT AND PLAN: The patient still irritability, anxiety unpredictability, unable to formulate a safe plan outside of his home. We will continue monitoring and evaluating as Depakote was recently added to target the patient's ongoing impulse behavior. JOB# [id number]
[2019-05-21] MEDS: INSULIN LISPRO SLIDING SCALE 100 UNITS/ML UNIT SUBQ SCH ×4 (06:37→20:35)
[2019-05-21] MEDS: Pantoprazole 40 mg EC Tab PO SCH (06:38)
[2019-05-21] MEDS: Apixaban 5 MG TABLET PO SCH ×2 (08:32→17:06)
[2019-05-21] MEDS: Multivitamin Tab PO SCH (08:32)
[2019-05-21] MEDS: Carbidopa/Levodopa 10/100 mg Tab PO SCH ×4 (08:32→20:34)
--- NOTE | 2019-05-21 18:27 | Internal Medicine Prog Note ---
Internal Medicine Subjective - Subjective Service Date: 05/21/19 Patient seen and examined:: without staff (HE FEELS GOOD) Patient is:: awake, verbal, in bed, talking, confused Per staff patient has:: no adverse event Internal Medicine Objective - Results Recent Labs: Laboratory Last Values POC Glucose 81 MG/DL (70 - 105) 05/21/19 06:00 - Physical Exam Vitals and I&O: Vital Signs Temp 98.0 F 05/21/19 14:00 Pulse 80 05/21/19 17:07 Resp 20 05/21/19 14:00 BP 124/76 05/21/19 17:07 Pulse Ox 98 05/21/19 14:00 Intake & Output 05/20/19 05/21/19 05/21/19 18:59 06:59 18:59 Intake Total 850 120 800 Balance 850 120 800 Intake: Oral 850 120 800 Other: # Voids 3 3 3 # Bowel Movements 0 1 1 Active Medications: Current Medications Acetaminophen (Tylenol) 650 mg PO Q4HR PRN PRN Reason: Mild Pain / Temp above 100 Stop: 07/03/19 22:57 Last Admin: 05/17/19 01:22 Dose: 650 mg Al Hydrox/Mg Hydrox/Simethicone (Maalox) 30 ml PO Q4H PRN PRN Reason: GI DISTRESS Stop: 07/03/19 22:57 Atorvastatin Calcium (Lipitor) 40 mg PO HS [facility]; Protocol Stop: 07/04/19 20:59 Last Admin: 05/20/19 20:32 Dose: 40 mg Carbidopa/Levodopa (Sinemet 10 Mg-100 Mg) 1 tab PO QID [facility] Stop: 07/04/19 20:59 Last Admin: 05/21/19 17:07 Dose: 1 tab Dextrose (Glutose 40%) 18.75 gm PO PRN PRN PRN Reason: BS Below 70 & tolerate po Stop: 07/04/19 20:24 Divalproex Sodium (Depakote Dr) 500 mg PO BID [facility]; Protocol Stop: 07/06/19 16:59 Last Admin: 05/21/19 17:07 Dose: 500 mg Donepezil HCl (Aricept) 10 mg PO HS [facility] Stop: 07/14/19 20:59 Last Admin: 05/20/19 20:32 Dose: 10 mg Gabapentin (Neurontin) 300 mg PO BID [facility] Stop: 07/05/19 08:59 Last Admin: 05/21/19 17:07 Dose: 300 mg Glucagon (Glucagen) 1 mg IM PRN PRN PRN Reason: BS Below 70 & not tolerate po Stop: 07/04/19 20:24 Insulin Human Lispro (Humalog Insulin Sliding Scale) 0 units SUBQ ACHS [facility]; Protocol Stop: 07/04/19 20:59 Last Admin: 05/21/19 16:51 Dose: Not Given Lorazepam (Ativan) 0.5 mg PO Q4H PRN; Protocol PRN Reason: Anxiety Stop: 07/03/19 22:57 Last Admin: 05/18/19 08:14 Dose: 0.5 mg Magnesium Hydroxide (Milk Of Magnesia) 30 ml PO HS PRN PRN Reason: Constipation Magnesium Oxide (Mag-Oxide) 400 mg PO BID [facility] Stop: 07/05/19 08:59 Last Admin: 05/21/19 17:06 Dose: 400 mg Memantine (Namenda) 10 mg PO HS [facility] Stop: 07/04/19 20:59 Last Admin: 05/20/19 20:32 Dose: 10 mg Metoprolol Tartrate (Lopressor) 25 mg PO BID [facility] Stop: 07/05/19 08:59 Last Admin: 05/21/19 17:07 Dose: 25 mg Multivitamins/Vitamin C (Theragran) 1 tab PO DAILY [facility] Stop: 07/04/19 08:59 Last Admin: 05/21/19 08:32 Dose: 1 tab Pantoprazole Sodium (Protonix) 40 mg PO QDAC [facility] Stop: 07/05/19 07:29 Last Admin: 05/21/19 06:38 Dose: 40 mg Quetiapine Fumarate (Seroquel) 25 mg PO DAILY [facility]; Protocol Stop: 07/11/19 08:59 Last Admin: 05/21/19 08:33 Dose: 25 mg Quetiapine Fumarate 50 mg/ (Quetiapine Fumarate 25 mg) 75 mg PO HS [facility] Stop: 07/20/19 20:59 Zolpidem Tartrate (Ambien) 5 mg PO HS PRN PRN Reason: Insomnia Stop: 07/03/19 22:57 Last Admin: 05/19/19 21:04 Dose: 5 mg General: alert, demented HEENT: NC/AT, PERRLA, EOMI, anicteric sclerae, throat clear Neck: Supple, No JVD, No thyromegaly, +2 carotid pulse wo bruit, No LAD, + JVD Lungs: CTAB Cardiovascular: RRR, Normal S1, Normal S2, without murmur Abdomen: soft, non-tender, non-distended Extremities: clear Neurological: no change Internal Medicine Assmt/Plan - Assessment Assessment: 1.DM. 2.CVA. 3.CHRONIC A FIB. 4.C DIFF COLITIS 5.PSYCHOSIS - Plan Plan: CONTINUE ON CURRENT MEDICATION AND DIET. Nutritional Asmnt/Malnutr-PDOC - Dietary Evaluation Malnutrition Findings (Please click <Entered> for more info): Nutritional Asmnt/Malnutrition Start: 05/08/19 13: 00 Text: Status: Complete Freq: Protocol: Document 05/08/19 13:00 [facility] (Rec: 05/08/19 13:04 [facility] [email or web address]) Nutritional Asmnt/Malnutrition Patient General Information Nutritional Screening Moderate Risk Diagnosis Psychosis Pertinent Medical Hx/Surgical Hx A-FIB, CVA with Lt hemiplegia, DM, Dementia, Hyperlipidemia, Parkinsonism Subjective Information Pt is a 68-year-old male admitted on 05/04 d/t agitation and aggressive behavior. Pt is eating an estimated 75% of meals x3 days (average) Per Meal/Nutrition Activity Record -adequate to meet nutritional needs. Recommend adding Cardiac to Diet Rx to limit fats as pt BMI is 45.73 (obese , class III). Pt was asleep at time of visit today, after lunch. HT: 51 WT: 242 LB (110 kg) ABW: 145 LB (65.68 kg) BMI: 45.73 (Obese, class III) GI: WNL, Soft, Non-tender BM: 05/08 x1 I/O: 1100/1 (+1099) Skin: WNL, Intact King: 16 Diet Order: CCHO 60gm Estimated Energy Needs: (Obese , ABW) 7519-4526 kcals (20-25 kcals/ kg) 53-66g Pro (0.8-1.0 g/kg) 7265-5228 ml (25-30 ml/kg) Pt is eating 75% of meals Per Meal/Nutrition Activity Record . Dietary is currently providing an estimated 2100 kcals and 125 gm Pro, per Pt PO intake this is providing an estimated 1575 kcals and 94gm Pro to meet 100% kcal and 100 +% Pro needs- adequate. Current Diet Order/ Nutrition Support CCHO 60gm Pertinent Medications Maalox (PRN), Lipitor, D50w ( PRN), Glutose 40% (PRN), Glucagen (PRN), INS-SS, MOM ( PRN), Mag-Oxide, Theragran, Protonix Pertinent Labs 05/07: A1c 5.8% POC Glucose (Last 24 hours): 79, 117, 94, 125, 109 Nutritional Hx/Data Height 1.55 m Height (Calculated Centimeters) 154.9 Current Weight (lbs) 109.769 kg Weight (Calculated Kilograms) 109.8 Weight (Calculated Grams) 442667.4 [place] Body Weight 112 LB (50.91 kg) % [place] Body Weight 216 Body Mass Index (BMI) 45.7 Weight Status Morbidly Obese GI Symptoms Last BM 05/08 x1 Skin Integrity/Comment: Skin: WNL, Intact King: 16 Current %PO Good (75-100%) Estimated Nutritional Goals BEE in Kcals: Adj wt of IBW Calories/Kcals/Kg 20-25 Kcals Calculated 1673-0962 Protein: Adj wt of IBW Protein g/k.8-1.0 Protein Calculated 53-66 Fluid: ml 1082-3259 ml (25-30 ml/kg) Nutritional Problem 1. Problem Problem Obesity Etiology r/t consistent energy overconsumption Signs/Symptoms: aeb BMI 45.73, obese class III . Malnutrition Related to Morbid Obesity Malnutrition related to morbid obesity BMI> or equal to 40 Query Text:(Any 1 Criteria met) Malnutrition related to morbid obesity Yes Intervention/Recommendation Comments [facility]. [facility]. 2. Recommend adding Cardiac to Diet Rx to limit fats as pt BMI is 45.73 (obese, class III ). Expected Outcomes/Goals Expected Outcomes/Goals 1. PO intake to continue to meet >75% of nutritional needs . 2. Monitor PO intake, wt, nutrition related labs, and skin integrity. 3. Gradual weight loss is ideal. 4. F/U as moderate risk in 3-5 days, 05/11-05/13.
--- NOTE | 2019-05-21 20:26 | Progress Notes ---
DATE: 05/21/2019 SUBJECTIVE: Case was discussed with staff of the patient, reviewed records. The patient continues to be confused, continues to be unpredictable, impulsive. He continues to be irritable, continues to need a lot of redirection, unable to maintain a reasonable conversation or make safe plan for self-care. Continues to have poor insight. Tolerated the Depakote with no side effects, no sedation, no nausea. He is on Aricept 10 mg at bedtime. Depakote level is pending and he is on Seroquel 25 mg a day, 50 mg at bedtime and I will be increasing his evening time dose of Seroquel to 75 mg to decrease his agitation, confusion, and paranoid behavior at times. We will continue outpatient group therapy, milieu therapy, and adjust the medication as needed. JOB# [id number]
[2019-05-22] MEDS: INSULIN LISPRO SLIDING SCALE 100 UNITS/ML UNIT SUBQ SCH ×4 (06:43→21:31)
[2019-05-22] MEDS: Pantoprazole 40 mg EC Tab PO SCH (06:46)
[2019-05-22] MEDS: Multivitamin Tab PO SCH (08:35)
[2019-05-22] MEDS: Carbidopa/Levodopa 10/100 mg Tab PO SCH ×4 (08:36→21:30)
[2019-05-22] MEDS: Apixaban 5 MG TABLET PO SCH ×2 (08:37→17:26)
--- NOTE | 2019-05-22 11:02 | Internal Medicine Prog Note ---
Internal Medicine Subjective - Subjective Service Date: 05/22/19 Patient seen and examined:: without staff (HE FEELS BETTER) Patient is:: awake, verbal, in bed, talking, confused Per staff patient has:: no adverse event Internal Medicine Objective - Results Recent Labs: Laboratory Last Values POC Glucose 69 MG/DL (70 - 105) L 05/22/19 06:26 - Physical Exam Vitals and I&O: Vital Signs Temp 97.6 F 05/22/19 05:47 Pulse 77 05/22/19 08:38 Resp 19 05/22/19 05:47 BP 153/80 05/22/19 08:38 Pulse Ox 96 05/22/19 05:47 Intake & Output 05/21/19 05/22/19 05/22/19 18:59 06:59 18:59 Intake Total 800 300 Balance 800 300 Intake: Oral 800 300 Other: # Voids 3 1 # Bowel Movements 1 1 Active Medications: Current Medications Acetaminophen (Tylenol) 650 mg PO Q4HR PRN PRN Reason: Mild Pain / Temp above 100 Stop: 07/03/19 22:57 Last Admin: 05/17/19 01:22 Dose: 650 mg Al Hydrox/Mg Hydrox/Simethicone (Maalox) 30 ml PO Q4H PRN PRN Reason: GI DISTRESS Stop: 07/03/19 22:57 Atorvastatin Calcium (Lipitor) 40 mg PO HS [facility]; Protocol Stop: 07/04/19 20:59 Last Admin: 05/21/19 20:32 Dose: 40 mg Carbidopa/Levodopa (Sinemet 10 Mg-100 Mg) 1 tab PO QID [facility] Stop: 07/04/19 20:59 Last Admin: 05/22/19 08:36 Dose: 1 tab Dextrose (Glutose 40%) 18.75 gm PO PRN PRN PRN Reason: BS Below 70 & tolerate po Stop: 07/04/19 20:24 Divalproex Sodium (Depakote Dr) 500 mg PO BID [facility]; Protocol Stop: 07/06/19 16:59 Last Admin: 05/22/19 08:38 Dose: 500 mg Donepezil HCl (Aricept) 10 mg PO HS [facility] Stop: 07/14/19 20:59 Last Admin: 05/21/19 20:33 Dose: 10 mg Gabapentin (Neurontin) 300 mg PO BID [facility] Stop: 07/05/19 08:59 Last Admin: 05/22/19 08:35 Dose: 300 mg Glucagon (Glucagen) 1 mg IM PRN PRN PRN Reason: BS Below 70 & not tolerate po Stop: 07/04/19 20:24 Insulin Human Lispro (Humalog Insulin Sliding Scale) 0 units SUBQ ACHS [facility]; Protocol Stop: 07/04/19 20:59 Last Admin: 05/22/19 06:43 Dose: Not Given Lorazepam (Ativan) 0.5 mg PO Q4H PRN; Protocol PRN Reason: Anxiety Stop: 07/03/19 22:57 Last Admin: 05/18/19 08:14 Dose: 0.5 mg Magnesium Hydroxide (Milk Of Magnesia) 30 ml PO HS PRN PRN Reason: Constipation Magnesium Oxide (Mag-Oxide) 400 mg PO BID [facility] Stop: 07/05/19 08:59 Last Admin: 05/22/19 08:36 Dose: 400 mg Memantine (Namenda) 10 mg PO HS [facility] Stop: 07/04/19 20:59 Last Admin: 05/21/19 20:32 Dose: 10 mg Metoprolol Tartrate (Lopressor) 25 mg PO BID [facility] Stop: 07/05/19 08:59 Last Admin: 05/22/19 08:38 Dose: 25 mg Multivitamins/Vitamin C (Theragran) 1 tab PO DAILY [facility] Stop: 07/04/19 08:59 Last Admin: 05/22/19 08:35 Dose: 1 tab Pantoprazole Sodium (Protonix) 40 mg PO QDAC [facility] Stop: 07/05/19 07:29 Last Admin: 05/22/19 06:46 Dose: 40 mg Quetiapine Fumarate (Seroquel) 25 mg PO DAILY [facility]; Protocol Stop: 07/11/19 08:59 Last Admin: 05/22/19 08:37 Dose: 25 mg Quetiapine Fumarate 50 mg/ (Quetiapine Fumarate 25 mg) 75 mg PO HS [facility] Stop: 07/20/19 20:59 Last Admin: 05/21/19 20:33 Dose: 75 mg Zolpidem Tartrate (Ambien) 5 mg PO HS PRN PRN Reason: Insomnia Stop: 07/03/19 22:57 Last Admin: 05/19/19 21:04 Dose: 5 mg General: alert, demented HEENT: NC/AT, PERRLA, EOMI, anicteric sclerae, throat clear Neck: Supple, No JVD, No thyromegaly, +2 carotid pulse wo bruit, No LAD, + JVD Lungs: CTAB Cardiovascular: RRR, Normal S1, Normal S2, without murmur Abdomen: soft, non-tender, non-distended Extremities: clear Neurological: no change Internal Medicine Assmt/Plan - Assessment Assessment: 1.DM. 2.CVA. 3.CHRONIC A FIB. 4.PSYCHOSIS - Plan Plan: CONTINUE ON CURRENT MEDICATION AND DIET. Nutritional Asmnt/Malnutr-PDOC - Dietary Evaluation Malnutrition Findings (Please click <Entered> for more info): Nutritional Asmnt/Malnutrition Start: 05/08/19 13: 00 Text: Status: Complete Freq: Protocol: Document 05/08/19 13:00 [facility] (Rec: 05/08/19 13:04 [facility] [email or web address]) Nutritional Asmnt/Malnutrition Patient General Information Nutritional Screening Moderate Risk Diagnosis Psychosis Pertinent Medical Hx/Surgical Hx A-FIB, CVA with Lt hemiplegia, DM, Dementia, Hyperlipidemia, Parkinsonism Subjective Information Pt is a 68-year-old male admitted on 05/04 d/t agitation and aggressive behavior. Pt is eating an estimated 75% of meals x3 days (average) Per Meal/Nutrition Activity Record -adequate to meet nutritional needs. Recommend adding Cardiac to Diet Rx to limit fats as pt BMI is 45.73 (obese , class III). Pt was asleep at time of visit today, after lunch. HT: 51 WT: 242 LB (110 kg) ABW: 145 LB (65.68 kg) BMI: 45.73 (Obese, class III) GI: WNL, Soft, Non-tender BM: 05/08 x1 I/O: 1100/1 (+1099) Skin: WNL, Intact King: 16 Diet Order: CCHO 60gm Estimated Energy Needs: (Obese , ABW) 8686-1118 kcals (20-25 kcals/ kg) 53-66g Pro (0.8-1.0 g/kg) 3406-9044 ml (25-30 ml/kg) Pt is eating 75% of meals Per Meal/Nutrition Activity Record . Dietary is currently providing an estimated 2100 kcals and 125 gm Pro, per Pt PO intake this is providing an estimated 1575 kcals and 94gm Pro to meet 100% kcal and 100 +% Pro needs- adequate. Current Diet Order/ Nutrition Support CCHO 60gm Pertinent Medications Maalox (PRN), Lipitor, D50w ( PRN), Glutose 40% (PRN), Glucagen (PRN), INS-SS, MOM ( PRN), Mag-Oxide, Theragran, Protonix Pertinent Labs 05/07: A1c 5.8% POC Glucose (Last 24 hours): 79, 117, 94, 125, 109 Nutritional Hx/Data Height 1.55 m Height (Calculated Centimeters) 154.9 Current Weight (lbs) 109.769 kg Weight (Calculated Kilograms) 109.8 Weight (Calculated Grams) 436992.4 [place] Body Weight 112 LB (50.91 kg) % [place] Body Weight 216 Body Mass Index (BMI) 45.7 Weight Status Morbidly Obese GI Symptoms Last BM 05/08 x1 Skin Integrity/Comment: Skin: WNL, Intact King: 16 Current %PO Good (75-100%) Estimated Nutritional Goals BEE in Kcals: Adj wt of IBW Calories/Kcals/Kg 20-25 Kcals Calculated 4240-7343 Protein: Adj wt of IBW Protein g/k.8-1.0 Protein Calculated 53-66 Fluid: ml 1972-0693 ml (25-30 ml/kg) Nutritional Problem 1. Problem Problem Obesity Etiology r/t consistent energy overconsumption Signs/Symptoms: aeb BMI 45.73, obese class III . Malnutrition Related to Morbid Obesity Malnutrition related to morbid obesity BMI> or equal to 40 Query Text:(Any 1 Criteria met) Malnutrition related to morbid obesity Yes Intervention/Recommendation Comments 1. Continue with [facility] 60gm diet as ordered. 2. Recommend adding Cardiac to Diet Rx to limit fats as pt BMI is 45.73 (obese, class III ). Expected Outcomes/Goals Expected Outcomes/Goals 1. PO intake to continue to meet >75% of nutritional needs . 2. Monitor PO intake, wt, nutrition related labs, and skin integrity. 3. Gradual weight loss is ideal. 4. F/U as moderate risk in 3-5 days, 05/11-05/13.
--- NOTE | 2019-05-22 14:50 | Progress Notes ---
DATE: 05/22/2019 Case was discussed with staff of the patient, reviewed records. The patient continues to be confused, unpredictable, impulsive, needing redirection. Continues to be unable to make safe plan for self-care, easily agitated at times. Continues to need redirection and help with ADLs. No side effects to medications, no sedation, no nausea. We will continue to work with the patient in group therapy, milieu therapy and adjust the medications as needed. JOB# [id number]
[2019-05-23] MEDS: INSULIN LISPRO SLIDING SCALE 100 UNITS/ML UNIT SUBQ SCH ×4 (06:30→20:46)
[2019-05-23] MEDS: Pantoprazole 40 mg EC Tab PO SCH (06:31)
[2019-05-23] MEDS: Apixaban 5 MG TABLET PO SCH ×2 (09:00→16:30)
[2019-05-23] MEDS: Carbidopa/Levodopa 10/100 mg Tab PO SCH ×4 (09:00→20:46)
[2019-05-23] MEDS: Multivitamin Tab PO SCH (09:00)
--- NOTE | 2019-05-23 15:29 | Progress Notes ---
DATE: 05/23/2019 Case was discussed with staff of the patient, reviewed records. The patient continues to be confused, demented, staying in bed mostly, unable to participate in meaningful conversation or make safe plan for self-care, unable to take care of himself. He is on Aricept 10 mg at bedtime,_ Namenda to 10 mg twice a day. He is also on Seroquel 25 mg daily and 275 mg at bedtime. No side effects with the medication, no sedation, no nausea, no extrapyramidal symptoms. We will continue outpatient group therapy, milieu therapy, adjust medication as needed. JOB# [id number] [email or web address]
--- NOTE | 2019-05-23 21:51 | Internal Medicine Prog Note ---
Internal Medicine Subjective - Subjective Service Date: 05/23/19 Patient seen and examined:: without staff (HE FEELS BETTER) Patient is:: awake, verbal, in bed, talking, confused Per staff patient has:: no adverse event Internal Medicine Objective - Results Recent Labs: Laboratory Last Values POC Glucose 133 MG/DL (70 - 105) H 05/23/19 16:50 - Physical Exam Vitals and I&O: Vital Signs Temp 96.3 F 05/23/19 20:00 Pulse 98 05/23/19 20:00 Resp 20 05/23/19 20:00 BP 107/60 05/23/19 20:00 Pulse Ox 97 05/23/19 20:00 Intake & Output 05/23/19 05/23/19 05/24/19 06:59 18:59 06:59 Intake Total 120 480 Balance 120 480 Intake: Oral 120 360 Other 120 Other: # Voids 3 3 # Bowel Movements 1 Active Medications: Current Medications Acetaminophen (Tylenol) 650 mg PO Q4HR PRN PRN Reason: Mild Pain (Scale 1-3) Stop: 07/03/19 22:57 Last Admin: 05/23/19 11:09 Dose: 650 mg Acetaminophen (Tylenol) 650 mg PO Q4H PRN PRN Reason: TEMP ABOVE 100 Stop: 07/22/19 11:54 Al Hydrox/Mg Hydrox/Simethicone (Maalox) 30 ml PO Q4H PRN PRN Reason: GI DISTRESS Stop: 07/03/19 22:57 Atorvastatin Calcium (Lipitor) 40 mg PO HS [facility]; Protocol Stop: 07/04/19 20:59 Last Admin: 05/23/19 20:45 Dose: 40 mg Carbidopa/Levodopa (Sinemet 10 Mg-100 Mg) 1 tab PO QID [facility] Stop: 07/04/19 20:59 Last Admin: 05/23/19 20:46 Dose: 1 tab Dextrose (Glutose 40%) 18.75 gm PO PRN PRN PRN Reason: BS Below 70 & tolerate po Stop: 07/04/19 20:24 Divalproex Sodium (Depakote Dr) 500 mg PO BID [facility]; Protocol Stop: 07/06/19 16:59 Last Admin: 05/23/19 16:27 Dose: 500 mg Donepezil HCl (Aricept) 10 mg PO HS [facility] Stop: 07/14/19 20:59 Last Admin: 05/23/19 20:46 Dose: 10 mg Gabapentin (Neurontin) 300 mg PO BID [facility] Stop: 07/05/19 08:59 Last Admin: 05/23/19 16:28 Dose: 300 mg Glucagon (Glucagen) 1 mg IM PRN PRN PRN Reason: BS Below 70 & not tolerate po Stop: 07/04/19 20:24 Insulin Human Lispro (Humalog Insulin Sliding Scale) 0 units SUBQ ACHS [facility]; Protocol Stop: 07/04/19 20:59 Last Admin: 05/23/19 20:46 Dose: Not Given Lorazepam (Ativan) 0.5 mg PO Q4H PRN; Protocol PRN Reason: Anxiety Stop: 07/03/19 22:57 Last Admin: 05/23/19 20:47 Dose: 0.5 mg Magnesium Hydroxide (Milk Of Magnesia) 30 ml PO HS PRN PRN Reason: Constipation Magnesium Oxide (Mag-Oxide) 400 mg PO BID [facility] Stop: 07/05/19 08:59 Last Admin: 05/23/19 16:28 Dose: 400 mg Memantine (Namenda) 10 mg PO BID [facility] Stop: 07/22/19 16:59 Last Admin: 05/23/19 16:28 Dose: 10 mg Metoprolol Tartrate (Lopressor) 25 mg PO BID [facility] Stop: 07/05/19 08:59 Last Admin: 05/23/19 16:30 Dose: 25 mg Multivitamins/Vitamin C (Theragran) 1 tab PO DAILY [facility] Stop: 07/04/19 08:59 Last Admin: 05/23/19 09:00 Dose: 1 tab Pantoprazole Sodium (Protonix) 40 mg PO QDAC [facility] Stop: 07/05/19 07:29 Last Admin: 05/23/19 06:31 Dose: 40 mg Quetiapine Fumarate (Seroquel) 25 mg PO DAILY [facility]; Protocol Stop: 07/11/19 08:59 Last Admin: 05/23/19 09:00 Dose: 25 mg Quetiapine Fumarate 50 mg/ (Quetiapine Fumarate 25 mg) 75 mg PO HS [facility] Stop: 07/20/19 20:59 Last Admin: 05/23/19 20:47 Dose: 75 mg Zolpidem Tartrate (Ambien) 5 mg PO HS PRN PRN Reason: Insomnia Stop: 07/03/19 22:57 Last Admin: 05/23/19 21:32 Dose: 5 mg General: alert, demented HEENT: NC/AT, PERRLA, EOMI, anicteric sclerae, throat clear Neck: Supple, No JVD, No thyromegaly, +2 carotid pulse wo bruit, No LAD, + JVD Lungs: CTAB Cardiovascular: RRR, Normal S1, Normal S2, without murmur Abdomen: soft, non-tender, non-distended Extremities: clear Neurological: no change Internal Medicine Assmt/Plan - Assessment Assessment: 1.DM. 2.CVA. 3.CHRONIC A FIB. 4.PSYCHOSIS - Plan Plan: CONTINUE ON CURRENT MEDICATION AND DIET. Nutritional Asmnt/Malnutr-PDOC - Dietary Evaluation Malnutrition Findings (Please click <Entered> for more info): Nutritional Asmnt/Malnutrition Start: 05/08/19 13: 00 Text: Status: Complete Freq: Protocol: Document 05/08/19 13:00 MARION (Rec: 05/08/19 13:04 MARION [email or web address]) Nutritional Asmnt/Malnutrition Patient General Information Nutritional Screening Moderate Risk Diagnosis Psychosis Pertinent Medical Hx/Surgical Hx A-FIB, CVA with Lt hemiplegia, DM, Dementia, Hyperlipidemia, Parkinsonism Subjective Information Pt is a 68-year-old male admitted on 05/04 d/t agitation and aggressive behavior. Pt is eating an estimated 75% of meals x3 days (average) Per Meal/Nutrition Activity Record -adequate to meet nutritional needs. Recommend adding Cardiac to Diet Rx to limit fats as pt BMI is 45.73 (obese , class III). Pt was asleep at time of visit today, after lunch. HT: 51 WT: 242 LB (110 kg) ABW: 145 LB (65.68 kg) BMI: 45.73 (Obese, class III) GI: WNL, Soft, Non-tender BM: 10 x1 I/O: 1100/1 (+1099) Skin: WNL, Intact King: 16 Diet Order: CCHO 60gm Estimated Energy Needs: (Obese , ABW) 5385-7554 kcals (20-25 kcals/ kg) 53-66g Pro (0.8-1.0 g/kg) 0950-1547 ml (25-30 ml/kg) Pt is eating 75% of meals Per Meal/Nutrition Activity Record . Dietary is currently providing an estimated 2100 kcals and 125 gm Pro, per Pt PO intake this is providing an estimated 1575 kcals and 94gm Pro to meet 100% kcal and 100 +% Pro needs- adequate. Current Diet Order/ Nutrition Support CCHO 60gm Pertinent Medications Maalox (PRN), Lipitor, D50w ( PRN), Glutose 40% (PRN), Glucagen (PRN), INS-SS, MOM ( PRN), Mag-Oxide, Theragran, Protonix Pertinent Labs 05/07: A1c 5.8% POC Glucose (Last 24 hours): 79, 117, 94, 125, 109 Nutritional Hx/Data Height 1.55 m Height (Calculated Centimeters) 154.9 Current Weight (lbs) 109.769 kg Weight (Calculated Kilograms) 109.8 Weight (Calculated Grams) 566011.4 [place] Body Weight 112 LB (50.91 kg) % [place] Body Weight 216 Body Mass Index (BMI) 45.7 Weight Status Morbidly Obese GI Symptoms Last BM 05/08 x1 Skin Integrity/Comment: Skin: WNL, Intact King: 16 Current %PO Good (75-100%) Estimated Nutritional Goals BEE in Kcals: Adj wt of IBW Calories/Kcals/Kg 20-25 Kcals Calculated 2458-6618 Protein: Adj wt of IBW Protein g/k.8-1.0 Protein Calculated 53-66 Fluid: ml 3998-1631 ml (25-30 ml/kg) Nutritional Problem 1. Problem Problem Obesity Etiology r/t consistent energy overconsumption Signs/Symptoms: aeb BMI 45.73, obese class III . Malnutrition Related to Morbid Obesity Malnutrition related to morbid obesity BMI> or equal to 40 Query Text:(Any 1 Criteria met) Malnutrition related to morbid obesity Yes Intervention/Recommendation Comments 1. Continue with CCHO 60gm diet as ordered. 2. Recommend adding Cardiac to Diet Rx to limit fats as pt BMI is 45.73 (obese, class III ). Expected Outcomes/Goals Expected Outcomes/Goals 1. PO intake to continue to meet >75% of nutritional needs . 2. Monitor PO intake, wt, nutrition related labs, and skin integrity. 3. Gradual weight loss is ideal. 4. F/U as moderate risk in 3-5 days, 05/11-05/13.
[2019-05-24] MEDS: Pantoprazole 40 mg EC Tab PO SCH (06:30)
[2019-05-24] MEDS: INSULIN LISPRO SLIDING SCALE 100 UNITS/ML UNIT SUBQ SCH ×4 (06:30→20:29)
[2019-05-24] MEDS: Apixaban 5 MG TABLET PO SCH ×2 (09:39→17:31)
[2019-05-24] MEDS: Multivitamin Tab PO SCH (09:40)
[2019-05-24] MEDS: Carbidopa/Levodopa 10/100 mg Tab PO SCH ×4 (09:40→20:26)
--- NOTE | 2019-05-24 13:46 | Progress Notes ---
DATE: 05/24/2019 Case was discussed with staff of the patient, reviewed records. The patient continues to be confused, internally preoccupied, staying in bed, cannot make safe plan for self-care, unable to participate in meaningful conversation. He is sleeping well, eating well. He is on Aricept 10 mg at bedtime, Depakote 500 mg twice a day, gabapentin 300 mg twice a day. He is also on insulin, Eliquis, atorvastatin, and Namenda 10 mg twice a day. He is very confused. No side effects with the medication, no sedation, no nausea and no extrapyramidal symptoms. We will continue on Seroquel 25 mg daily and 75 mg at bedtime. We will continue outpatient group therapy, milieu therapy, and adjust medications as needed. JOB# [id number]
--- NOTE | 2019-05-24 17:35 | Internal Medicine Prog Note ---
Internal Medicine Subjective - Subjective Service Date: 05/24/19 Patient seen and examined:: without staff (HE IS DOING BETTER) Patient is:: awake, verbal, in bed, talking, confused Per staff patient has:: no adverse event Internal Medicine Objective - Results Recent Labs: Laboratory Last Values POC Glucose 133 MG/DL (70 - 105) H 05/23/19 16:50 - Physical Exam Vitals and I&O: Vital Signs Temp 97.1 F 05/24/19 14:00 Pulse 74 05/24/19 17:30 Resp 20 05/24/19 14:00 BP 111/74 05/24/19 17:30 Pulse Ox 98 05/24/19 14:00 Intake & Output 05/23/19 05/24/19 05/24/19 18:59 06:59 18:59 Intake Total 480 120 Balance 480 120 Intake: Oral 360 120 Other 120 Other: # Voids 3 3 # Bowel Movements 1 Active Medications: Current Medications Acetaminophen (Tylenol) 650 mg PO Q4HR PRN PRN Reason: Mild Pain (Scale 1-3) Stop: 07/03/19 22:57 Last Admin: 05/23/19 11:09 Dose: 650 mg Acetaminophen (Tylenol) 650 mg PO Q4H PRN PRN Reason: TEMP ABOVE 100 Stop: 07/22/19 11:54 Al Hydrox/Mg Hydrox/Simethicone (Maalox) 30 ml PO Q4H PRN PRN Reason: GI DISTRESS Stop: 07/03/19 22:57 Atorvastatin Calcium (Lipitor) 40 mg PO HS [facility]; Protocol Stop: 07/04/19 20:59 Last Admin: 05/23/19 20:45 Dose: 40 mg Carbidopa/Levodopa (Sinemet 10 Mg-100 Mg) 1 tab PO QID [facility] Stop: 07/04/19 20:59 Last Admin: 05/24/19 17:31 Dose: 1 tab Dextrose (Glutose 40%) 18.75 gm PO PRN PRN PRN Reason: BS Below 70 & tolerate po Stop: 07/04/19 20:24 Divalproex Sodium (Depakote Dr) 500 mg PO BID [facility]; Protocol Stop: 07/06/19 16:59 Last Admin: 05/24/19 17:31 Dose: 500 mg Donepezil HCl (Aricept) 10 mg PO HS [facility] Stop: 07/14/19 20:59 Last Admin: 05/23/19 20:46 Dose: 10 mg Gabapentin (Neurontin) 300 mg PO BID [facility] Stop: 07/05/19 08:59 Last Admin: 05/24/19 17:29 Dose: 300 mg Glucagon (Glucagen) 1 mg IM PRN PRN PRN Reason: BS Below 70 & not tolerate po Stop: 07/04/19 20:24 Insulin Human Lispro (Humalog Insulin Sliding Scale) 0 units SUBQ ACHS [facility]; Protocol Stop: 07/04/19 20:59 Last Admin: 05/24/19 16:35 Dose: Not Given Lorazepam (Ativan) 0.5 mg PO Q4H PRN; Protocol PRN Reason: Anxiety Stop: 07/03/19 22:57 Last Admin: 05/23/19 20:47 Dose: 0.5 mg Magnesium Hydroxide (Milk Of Magnesia) 30 ml PO HS PRN PRN Reason: Constipation Magnesium Oxide (Mag-Oxide) 400 mg PO BID [facility] Stop: 07/05/19 08:59 Last Admin: 05/24/19 17:31 Dose: 400 mg Memantine (Namenda) 10 mg PO BID [facility] Stop: 07/22/19 16:59 Last Admin: 05/24/19 17:31 Dose: 10 mg Metoprolol Tartrate (Lopressor) 25 mg PO BID [facility] Stop: 07/05/19 08:59 Last Admin: 05/24/19 17:30 Dose: 25 mg Multivitamins/Vitamin C (Theragran) 1 tab PO DAILY [facility] Stop: 07/04/19 08:59 Last Admin: 05/24/19 09:40 Dose: 1 tab Pantoprazole Sodium (Protonix) 40 mg PO QDAC [facility] Stop: 07/05/19 07:29 Last Admin: 05/24/19 06:30 Dose: 40 mg Quetiapine Fumarate (Seroquel) 25 mg PO DAILY [facility]; Protocol Stop: 07/11/19 08:59 Last Admin: 05/24/19 09:39 Dose: 25 mg Quetiapine Fumarate 50 mg/ (Quetiapine Fumarate 25 mg) 75 mg PO HS [facility] Stop: 07/20/19 20:59 Last Admin: 05/23/19 20:47 Dose: 75 mg Zolpidem Tartrate (Ambien) 5 mg PO HS PRN PRN Reason: Insomnia Stop: 07/03/19 22:57 Last Admin: 05/23/19 21:32 Dose: 5 mg General: alert, demented HEENT: NC/AT, PERRLA, EOMI, anicteric sclerae, throat clear Neck: Supple, No JVD, No thyromegaly, +2 carotid pulse wo bruit, No LAD, + JVD Lungs: CTAB Cardiovascular: RRR, Normal S1, Normal S2, without murmur Abdomen: soft, non-tender, non-distended Extremities: clear Neurological: no change Internal Medicine Assmt/Plan - Assessment Assessment: 1.DM. 2.CVA. 3.CHRONIC A FIB. 4.PSYCHOSIS - Plan Plan: CONTINUE ON CURRENT MEDICATION AND DIET. Nutritional Asmnt/Malnutr-PDOC - Dietary Evaluation Malnutrition Findings (Please click <Entered> for more info): Nutritional Asmnt/Malnutrition Start: 05/08/19 13: 00 Text: Status: Complete Freq: Protocol: Document 05/08/19 13:00 MARION (Rec: 05/08/19 13:04 MARION [email or web address]) Nutritional Asmnt/Malnutrition Patient General Information Nutritional Screening Moderate Risk Diagnosis Psychosis Pertinent Medical Hx/Surgical Hx A-FIB, CVA with Lt hemiplegia, DM, Dementia, Hyperlipidemia, Parkinsonism Subjective Information Pt is a 68-year-old male admitted on 05/04 d/t agitation and aggressive behavior. Pt is eating an estimated 75% of meals x3 days (average) Per Meal/Nutrition Activity Record -adequate to meet nutritional needs. Recommend adding Cardiac to Diet Rx to limit fats as pt BMI is 45.73 (obese , class III). Pt was asleep at time of visit today, after lunch. HT: 51 WT: 242 LB (110 kg) ABW: 145 LB (65.68 kg) BMI: 45.73 (Obese, class III) GI: WNL, Soft, Non-tender BM: 10 x1 I/O: 1100/1 (+1099) Skin: WNL, Intact King: 16 Diet Order: CCHO 60gm Estimated Energy Needs: (Obese , ABW) 2494-6754 kcals (20-25 kcals/ kg) 53-66g Pro (0.8-1.0 g/kg) 7287-0176 ml (25-30 ml/kg) Pt is eating 75% of meals Per Meal/Nutrition Activity Record . Dietary is currently providing an estimated 2100 kcals and 125 gm Pro, per Pt PO intake this is providing an estimated 1575 kcals and 94gm Pro to meet 100% kcal and 100 +% Pro needs- adequate. Current Diet Order/ Nutrition Support CCHO 60gm Pertinent Medications Maalox (PRN), Lipitor, D50w ( PRN), Glutose 40% (PRN), Glucagen (PRN), INS-SS, MOM ( PRN), Mag-Oxide, Theragran, Protonix Pertinent Labs 05/07: A1c 5.8% POC Glucose (Last 24 hours): 79, 117, 94, 125, 109 Nutritional Hx/Data Height 1.55 m Height (Calculated Centimeters) 154.9 Current Weight (lbs) 109.769 kg Weight (Calculated Kilograms) 109.8 Weight (Calculated Grams) 343132.4 [place] Body Weight 112 LB (50.91 kg) % [place] Body Weight 216 Body Mass Index (BMI) 45.7 Weight Status Morbidly Obese GI Symptoms Last BM 05/08 x1 Skin Integrity/Comment: Skin: WNL, Intact King: 16 Current %PO Good (75-100%) Estimated Nutritional Goals BEE in Kcals: Adj wt of IBW Calories/Kcals/Kg 20-25 Kcals Calculated 1814-8645 Protein: Adj wt of IBW Protein g/k.8-1.0 Protein Calculated 53-66 Fluid: ml 9782-2356 ml (25-30 ml/kg) Nutritional Problem 1. Problem Problem Obesity Etiology r/t consistent energy overconsumption Signs/Symptoms: aeb BMI 45.73, obese class III . Malnutrition Related to Morbid Obesity Malnutrition related to morbid obesity BMI> or equal to 40 Query Text:(Any 1 Criteria met) Malnutrition related to morbid obesity Yes Intervention/Recommendation Comments 1. Continue with CCHO 60gm diet as ordered. 2. Recommend adding Cardiac to Diet Rx to limit fats as pt BMI is 45.73 (obese, class III ). Expected Outcomes/Goals Expected Outcomes/Goals 1. PO intake to continue to meet >75% of nutritional needs . 2. Monitor PO intake, wt, nutrition related labs, and skin integrity. 3. Gradual weight loss is ideal. 4. F/U as moderate risk in 3-5 days, 05/11-05/13.
[2019-05-25] MEDS: INSULIN LISPRO SLIDING SCALE 100 UNITS/ML UNIT SUBQ SCH ×4 (06:37→21:03)
[2019-05-25] MEDS: Pantoprazole 40 mg EC Tab PO SCH (06:49)
[2019-05-25] MEDS: Apixaban 5 MG TABLET PO SCH ×2 (08:42→16:30)
[2019-05-25] MEDS: Carbidopa/Levodopa 10/100 mg Tab PO SCH ×4 (08:42→21:01)
[2019-05-25] MEDS: Multivitamin Tab PO SCH (08:43)
--- NOTE | 2019-05-25 17:18 | Internal Medicine Prog Note ---
Internal Medicine Subjective - Subjective Service Date: 05/25/19 Patient seen and examined:: without staff (HE FEELS WELL) Patient is:: awake, verbal, in bed, talking, confused Per staff patient has:: no adverse event Internal Medicine Objective - Results Recent Labs: Laboratory Last Values POC Glucose 133 MG/DL (70 - 105) H 05/23/19 16:50 - Physical Exam Vitals and I&O: Vital Signs Temp 97.3 F 05/25/19 14:00 Pulse 75 05/25/19 16:30 Resp 20 05/25/19 14:00 BP 111/75 05/25/19 16:30 Pulse Ox 96 05/25/19 14:00 Intake & Output 05/24/19 05/25/19 05/25/19 18:59 06:59 18:59 Intake Total 1200 Balance 1200 Intake: Oral 1200 Other: # Voids 4 # Bowel Movements 1 Active Medications: Current Medications Acetaminophen (Tylenol) 650 mg PO Q4HR PRN PRN Reason: Mild Pain (Scale 1-3) Stop: 07/03/19 22:57 Last Admin: 05/24/19 21:36 Dose: 650 mg Acetaminophen (Tylenol) 650 mg PO Q4H PRN PRN Reason: TEMP ABOVE 100 Stop: 07/22/19 11:54 Al Hydrox/Mg Hydrox/Simethicone (Maalox) 30 ml PO Q4H PRN PRN Reason: GI DISTRESS Stop: 07/03/19 22:57 Atorvastatin Calcium (Lipitor) 40 mg PO HS [facility]; Protocol Stop: 07/04/19 20:59 Last Admin: 05/24/19 20:28 Dose: 40 mg Carbidopa/Levodopa (Sinemet 10 Mg-100 Mg) 1 tab PO QID [facility] Stop: 07/04/19 20:59 Last Admin: 05/25/19 16:30 Dose: 1 tab Dextrose (Glutose 40%) 18.75 gm PO PRN PRN PRN Reason: BS Below 70 & tolerate po Stop: 07/04/19 20:24 Divalproex Sodium (Depakote Dr) 500 mg PO BID [facility]; Protocol Stop: 07/06/19 16:59 Last Admin: 05/25/19 16:29 Dose: 500 mg Donepezil HCl (Aricept) 10 mg PO HS [facility] Stop: 07/14/19 20:59 Last Admin: 05/24/19 20:26 Dose: 10 mg Gabapentin (Neurontin) 300 mg PO BID [facility] Stop: 07/05/19 08:59 Last Admin: 05/25/19 16:31 Dose: 300 mg Glucagon (Glucagen) 1 mg IM PRN PRN PRN Reason: BS Below 70 & not tolerate po Stop: 07/04/19 20:24 Insulin Human Lispro (Humalog Insulin Sliding Scale) 0 units SUBQ ACHS [facility]; Protocol Stop: 07/04/19 20:59 Last Admin: 05/25/19 16:15 Dose: Not Given Lorazepam (Ativan) 0.5 mg PO Q4H PRN; Protocol PRN Reason: Anxiety Stop: 07/03/19 22:57 Last Admin: 05/23/19 20:47 Dose: 0.5 mg Magnesium Hydroxide (Milk Of Magnesia) 30 ml PO HS PRN PRN Reason: Constipation Magnesium Oxide (Mag-Oxide) 400 mg PO BID [facility] Stop: 07/05/19 08:59 Last Admin: 05/25/19 16:31 Dose: 400 mg Memantine (Namenda) 10 mg PO BID [facility] Stop: 07/22/19 16:59 Last Admin: 05/25/19 16:30 Dose: 10 mg Metoprolol Tartrate (Lopressor) 25 mg PO BID [facility] Stop: 07/05/19 08:59 Last Admin: 05/25/19 16:30 Dose: 25 mg Multivitamins/Vitamin C (Theragran) 1 tab PO DAILY [facility] Stop: 07/04/19 08:59 Last Admin: 05/25/19 08:43 Dose: 1 tab Pantoprazole Sodium (Protonix) 40 mg PO QDAC [facility] Stop: 07/05/19 07:29 Last Admin: 05/25/19 06:49 Dose: 40 mg Quetiapine Fumarate (Seroquel) 25 mg PO DAILY [facility]; Protocol Stop: 07/11/19 08:59 Last Admin: 05/25/19 08:43 Dose: 25 mg Quetiapine Fumarate (Seroquel) 100 mg PO HS [facility] Stop: 07/24/19 20:59 Zolpidem Tartrate (Ambien) 5 mg PO HS PRN PRN Reason: Insomnia Stop: 07/03/19 22:57 Last Admin: 05/24/19 21:36 Dose: 5 mg General: alert, demented HEENT: NC/AT, PERRLA, EOMI, anicteric sclerae, throat clear Neck: Supple, No JVD, No thyromegaly, +2 carotid pulse wo bruit, No LAD, + JVD Lungs: CTAB Cardiovascular: RRR, Normal S1, Normal S2, without murmur Abdomen: soft, non-tender, non-distended Extremities: clear Neurological: no change Internal Medicine Assmt/Plan - Assessment Assessment: 1.DM. 2.CVA. 3.CHRONIC A FIB. 4.PSYCHOSIS - Plan Plan: CONTINUE ON CURRENT MEDICATION AND DIET. Nutritional Asmnt/Malnutr-PDOC - Dietary Evaluation Malnutrition Findings (Please click <Entered> for more info): Nutritional Asmnt/Malnutrition Start: 05/08/19 13: 00 Text: Status: Complete Freq: Protocol: Document 05/08/19 13:00 MARION (Rec: 05/08/19 13:04 MARION [email or web address]) Nutritional Asmnt/Malnutrition Patient General Information Nutritional Screening Moderate Risk Diagnosis Psychosis Pertinent Medical Hx/Surgical Hx A-FIB, CVA with Lt hemiplegia, DM, Dementia, Hyperlipidemia, Parkinsonism Subjective Information Pt is a 68-year-old male admitted on 05/04 d/t agitation and aggressive behavior. Pt is eating an estimated 75% of meals x3 days (average) Per Meal/Nutrition Activity Record -adequate to meet nutritional needs. Recommend adding Cardiac to Diet Rx to limit fats as pt BMI is 45.73 (obese , class III). Pt was asleep at time of visit today, after lunch. HT: 51 WT: 242 LB (110 kg) ABW: 145 LB (65.68 kg) BMI: 45.73 (Obese, class III) GI: WNL, Soft, Non-tender BM: 05/08 x1 I/O: 1100/1 (+1099) Skin: WNL, Intact King: 16 Diet Order: [facility] 60gm Estimated Energy Needs: (Obese , ABW) 8100-5134 kcals (20-25 kcals/ kg) 53-66g Pro (0.8-1.0 g/kg) 2006-3377 ml (25-30 ml/kg) Pt is eating 75% of meals Per Meal/Nutrition Activity Record . Dietary is currently providing an estimated 2100 kcals and 125 gm Pro, per Pt PO intake this is providing an estimated 1575 kcals and 94gm Pro to meet 100% kcal and 100 +% Pro needs- adequate. Current Diet Order/ Nutrition Support CCHO 60gm Pertinent Medications Maalox (PRN), Lipitor, D50w ( PRN), Glutose 40% (PRN), Glucagen (PRN), INS-SS, MOM ( PRN), Mag-Oxide, Theragran, Protonix Pertinent Labs 05/07: A1c 5.8% POC Glucose (Last 24 hours): 79, 117, 94, 125, 109 Nutritional Hx/Data Height 1.55 m Height (Calculated Centimeters) 154.9 Current Weight (lbs) 109.769 kg Weight (Calculated Kilograms) 109.8 Weight (Calculated Grams) 830834.4 [place] Body Weight 112 LB (50.91 kg) % [place] Body Weight 216 Body Mass Index (BMI) 45.7 Weight Status Morbidly Obese GI Symptoms Last BM 05/08 x1 Skin Integrity/Comment: Skin: WNL, Intact King: 16 Current %PO Good (75-100%) Estimated Nutritional Goals BEE in Kcals: Adj wt of IBW Calories/Kcals/Kg 20-25 Kcals Calculated 8522-7364 Protein: Adj wt of IBW Protein g/k.8-1.0 Protein Calculated 53-66 Fluid: ml 8184-9418 ml (25-30 ml/kg) Nutritional Problem 1. Problem Problem Obesity Etiology r/t consistent energy overconsumption Signs/Symptoms: aeb BMI 45.73, obese class III . Malnutrition Related to Morbid Obesity Malnutrition related to morbid obesity BMI> or equal to 40 Query Text:(Any 1 Criteria met) Malnutrition related to morbid obesity Yes Intervention/Recommendation Comments 1. Continue with [facility] 60gm diet as ordered. 2. Recommend adding Cardiac to Diet Rx to limit fats as pt BMI is 45.73 (obese, class III ). Expected Outcomes/Goals Expected Outcomes/Goals 1. PO intake to continue to meet >75% of nutritional needs . 2. Monitor PO intake, wt, nutrition related labs, and skin integrity. 3. Gradual weight loss is ideal. 4. F/U as moderate risk in 3-5 days, 05/11-05/13.
--- NOTE | 2019-05-26 02:51 | Progress Notes ---
DATE: 05/25/2019 Case was discussed with staff of the patient, reviewed records. The patient continues to be confused, unable to make safe plan for self-care, unable to participate in meaningful conversation. No side effects with the medication, no sedation, no nausea, no extrapyramidal symptoms. We will continue to work with the patient in group therapy, milieu therapy, and adjust the medication as needed. [facility]# [id number]
[2019-05-26] MEDS: Pantoprazole 40 mg EC Tab PO SCH (06:41)
[2019-05-26] MEDS: INSULIN LISPRO SLIDING SCALE 100 UNITS/ML UNIT SUBQ SCH ×4 (06:41→21:31)
[2019-05-26] MEDS: Carbidopa/Levodopa 10/100 mg Tab PO SCH ×4 (09:20→21:00)
[2019-05-26] MEDS: Multivitamin Tab PO SCH (09:20)
[2019-05-26] MEDS: Apixaban 5 MG TABLET PO SCH ×2 (09:20→17:32)
--- NOTE | 2019-05-26 19:20 | Internal Medicine Prog Note ---
Internal Medicine Subjective - Subjective Service Date: 05/26/19 Patient seen and examined:: without staff (HE FEELS WELL) Patient is:: awake, verbal, in bed, talking, confused Per staff patient has:: no adverse event Internal Medicine Objective - Results Recent Labs: Laboratory Last Values POC Glucose 133 MG/DL (70 - 105) H 05/23/19 16:50 - Physical Exam Vitals and I&O: Vital Signs Temp 97.6 F 05/26/19 14:00 Pulse 18 05/26/19 17:33 Resp 18 05/26/19 14:00 BP 108/70 05/26/19 17:33 Pulse Ox 95 05/26/19 14:00 Intake & Output 05/26/19 05/26/19 05/27/19 06:59 18:59 06:59 Intake Total 240 1300 Balance 240 1300 Intake: Oral 240 1300 Other: # Voids 2 3 # Bowel Movements 1 0 Active Medications: Current Medications Acetaminophen (Tylenol) 650 mg PO Q4HR PRN PRN Reason: Mild Pain (Scale 1-3) Stop: 07/03/19 22:57 Last Admin: 05/26/19 01:59 Dose: 650 mg Acetaminophen (Tylenol) 650 mg PO Q4H PRN PRN Reason: TEMP ABOVE 100 Stop: 07/22/19 11:54 Al Hydrox/Mg Hydrox/Simethicone (Maalox) 30 ml PO Q4H PRN PRN Reason: GI DISTRESS Stop: 07/03/19 22:57 Atorvastatin Calcium (Lipitor) 40 mg PO HS [facility]; Protocol Stop: 07/04/19 20:59 Last Admin: 05/25/19 21:00 Dose: 40 mg Carbidopa/Levodopa (Sinemet 10 Mg-100 Mg) 1 tab PO QID [facility] Stop: 07/04/19 20:59 Last Admin: 05/26/19 17:31 Dose: 1 tab Dextrose (Glutose 40%) 18.75 gm PO PRN PRN PRN Reason: BS Below 70 & tolerate po Stop: 07/04/19 20:24 Divalproex Sodium (Depakote Dr) 500 mg PO BID [facility]; Protocol Stop: 07/06/19 16:59 Last Admin: 05/26/19 17:33 Dose: 500 mg Donepezil HCl (Aricept) 10 mg PO HS [facility] Stop: 07/14/19 20:59 Last Admin: 05/25/19 21:01 Dose: 10 mg Gabapentin (Neurontin) 300 mg PO BID [facility] Stop: 07/05/19 08:59 Last Admin: 05/26/19 17:32 Dose: 300 mg Glucagon (Glucagen) 1 mg IM PRN PRN PRN Reason: BS Below 70 & not tolerate po Stop: 07/04/19 20:24 Insulin Human Lispro (Humalog Insulin Sliding Scale) 0 units SUBQ ACHS [facility]; Protocol Stop: 07/04/19 20:59 Last Admin: 05/26/19 17:31 Dose: Not Given Lorazepam (Ativan) 0.5 mg PO Q4H PRN; Protocol PRN Reason: Anxiety Stop: 07/03/19 22:57 Last Admin: 05/23/19 20:47 Dose: 0.5 mg Magnesium Hydroxide (Milk Of Magnesia) 30 ml PO HS PRN PRN Reason: Constipation Magnesium Oxide (Mag-Oxide) 400 mg PO BID [facility] Stop: 07/05/19 08:59 Last Admin: 05/26/19 17:32 Dose: 400 mg Memantine (Namenda) 10 mg PO BID [facility] Stop: 07/22/19 16:59 Last Admin: 05/26/19 17:32 Dose: 10 mg Metoprolol Tartrate (Lopressor) 25 mg PO BID [facility] Stop: 07/05/19 08:59 Last Admin: 05/26/19 17:33 Dose: 25 mg Multivitamins/Vitamin C (Theragran) 1 tab PO DAILY [facility] Stop: 07/04/19 08:59 Last Admin: 05/26/19 09:20 Dose: 1 tab Pantoprazole Sodium (Protonix) 40 mg PO QDAC [facility] Stop: 07/05/19 07:29 Last Admin: 05/26/19 06:41 Dose: 40 mg Quetiapine Fumarate (Seroquel) 25 mg PO DAILY [facility]; Protocol Stop: 07/11/19 08:59 Last Admin: 05/26/19 09:20 Dose: 25 mg Quetiapine Fumarate (Seroquel) 100 mg PO HS [facility] Stop: 07/24/19 20:59 Last Admin: 05/25/19 21:02 Dose: 100 mg Zolpidem Tartrate (Ambien) 5 mg PO HS PRN PRN Reason: Insomnia Stop: 07/03/19 22:57 Last Admin: 05/25/19 21:03 Dose: 5 mg General: alert, demented HEENT: NC/AT, PERRLA, EOMI, anicteric sclerae, throat clear Neck: Supple, No JVD, No thyromegaly, +2 carotid pulse wo bruit, No LAD, + JVD Lungs: CTAB Cardiovascular: RRR, Normal S1, Normal S2, without murmur Abdomen: soft, non-tender, non-distended Extremities: clear Neurological: no change Internal Medicine Assmt/Plan - Assessment Assessment: 1.DM. 2.CVA. 3.CHRONIC A FIB. 4.PSYCHOSIS - Plan Plan: CONTINUE ON CURRENT MEDICATION AND DIET. Nutritional Asmnt/Malnutr-PDOC - Dietary Evaluation Malnutrition Findings (Please click <Entered> for more info): Nutritional Asmnt/Malnutrition Start: 05/08/19 13: 00 Text: Status: Complete Freq: Protocol: Document 05/08/19 13:00 MARION (Rec: 05/08/19 13:04 MARION [email or web address]) Nutritional Asmnt/Malnutrition Patient General Information Nutritional Screening Moderate Risk Diagnosis Psychosis Pertinent Medical Hx/Surgical Hx A-FIB, CVA with Lt hemiplegia, DM, Dementia, Hyperlipidemia, Parkinsonism Subjective Information Pt is a 68-year-old male admitted on 05/04 d/t agitation and aggressive behavior. Pt is eating an estimated 75% of meals x3 days (average) Per Meal/Nutrition Activity Record -adequate to meet nutritional needs. Recommend adding Cardiac to Diet Rx to limit fats as pt BMI is 45.73 (obese , class III). Pt was asleep at time of visit today, after lunch. HT: 51 WT: 242 LB (110 kg) ABW: 145 LB (65.68 kg) BMI: 45.73 (Obese, class III) GI: WNL, Soft, Non-tender BM: 05/08 x1 I/O: 1100/1 (+1099) Skin: WNL, Intact King: 16 Diet Order: CCHO 60gm Estimated Energy Needs: (Obese , ABW) 6667-1301 kcals (20-25 kcals/ kg) 53-66g Pro (0.8-1.0 g/kg) 6355-5647 ml (25-30 ml/kg) Pt is eating 75% of meals Per Meal/Nutrition Activity Record . Dietary is currently providing an estimated 2100 kcals and 125 gm Pro, per Pt PO intake this is providing an estimated 1575 kcals and 94gm Pro to meet 100% kcal and 100 +% Pro needs- adequate. Current Diet Order/ Nutrition Support CCHO 60gm Pertinent Medications Maalox (PRN), Lipitor, D50w ( PRN), Glutose 40% (PRN), Glucagen (PRN), INS-SS, MOM ( PRN), Mag-Oxide, Theragran, Protonix Pertinent Labs 05/07: A1c 5.8% POC Glucose (Last 24 hours): 79, 117, 94, 125, 109 Nutritional Hx/Data Height 1.55 m Height (Calculated Centimeters) 154.9 Current Weight (lbs) 109.769 kg Weight (Calculated Kilograms) 109.8 Weight (Calculated Grams) 788216.4 [place] Body Weight 112 LB (50.91 kg) % [place] Body Weight 216 Body Mass Index (BMI) 45.7 Weight Status Morbidly Obese GI Symptoms Last BM 05/08 x1 Skin Integrity/Comment: Skin: WNL, Intact King: 16 Current %PO Good (75-100%) Estimated Nutritional Goals BEE in Kcals: Adj wt of IBW Calories/Kcals/Kg 20-25 Kcals Calculated 5873-5423 Protein: Adj wt of IBW Protein g/k.8-1.0 Protein Calculated 53-66 Fluid: ml 8651-2884 ml (25-30 ml/kg) Nutritional Problem 1. Problem Problem Obesity Etiology r/t consistent energy overconsumption Signs/Symptoms: aeb BMI 45.73, obese class III . Malnutrition Related to Morbid Obesity Malnutrition related to morbid obesity BMI> or equal to 40 Query Text:(Any 1 Criteria met) Malnutrition related to morbid obesity Yes Intervention/Recommendation Comments 1. Continue with CCHO 60gm diet as ordered. 2. Recommend adding Cardiac to Diet Rx to limit fats as pt BMI is 45.73 (obese, class III ). Expected Outcomes/Goals Expected Outcomes/Goals 1. PO intake to continue to meet >75% of nutritional needs . 2. Monitor PO intake, wt, nutrition related labs, and skin integrity. 3. Gradual weight loss is ideal. 4. F/U as moderate risk in 3-5 days, 05/11-05/13.
--- NOTE | 2019-05-27 06:22 | Progress Notes ---
DATE: 05/26/[address] Curry. SUBJECTIVE: Chart is reviewed and the patient is interviewed. Also discussed the patient's condition with the staff and reviewed records and labs. The patient is still having episodes of yelling and screaming. The patient is preoccupied and actively responding. The patient also is demanding and has multiple demands from the staff. He also still gets easily agitated because of difficulty hearing. Also, the patient is having mood swings and irritability. Otherwise, the patient is compliant with taking his medications with no side effects. ASSESSMENT: The patient is still agitated and needs close monitoring. TREATMENT PLAN: Continue monitoring his behavior closely. Also continue Seroquel in a dose of 25 mg in the morning and 100 mg at bedtime as well as Depakote 500 mg twice a day, Neurontin 300 mg twice a day, and Namenda 10 mg at bedtime. JOB# [id number]
[2019-05-27] MEDS: Pantoprazole 40 mg EC Tab PO SCH (06:34)
[2019-05-27] MEDS: INSULIN LISPRO SLIDING SCALE 100 UNITS/ML UNIT SUBQ SCH ×4 (06:44→21:00)
[2019-05-27] MEDS: Multivitamin Tab PO SCH (09:30)
[2019-05-27] MEDS: Apixaban 5 MG TABLET PO SCH ×2 (09:30→17:06)
[2019-05-27] MEDS: Carbidopa/Levodopa 10/100 mg Tab PO SCH ×4 (09:30→20:57)
--- NOTE | 2019-05-27 19:23 | Internal Medicine Prog Note ---
Internal Medicine Subjective - Subjective Service Date: 05/27/19 Patient seen and examined:: without staff (HE FEELS WELL) Patient is:: awake, verbal, in bed, talking, confused Per staff patient has:: no adverse event Internal Medicine Objective - Results Recent Labs: Laboratory Last Values POC Glucose 113 MG/DL (70 - 105) H 05/27/19 17:13 - Physical Exam Vitals and I&O: Vital Signs Temp 97.6 F 05/27/19 14:00 Pulse 87 05/27/19 17:09 Resp 18 05/27/19 14:00 BP 136/76 05/27/19 17:09 Pulse Ox 96 05/27/19 14:00 Intake & Output 05/27/19 05/27/19 05/28/19 06:59 18:59 06:59 Intake Total 120 Balance 120 Intake: Oral 120 Other: # Voids 1 # Bowel Movements 0 1 Active Medications: Current Medications Acetaminophen (Tylenol) 650 mg PO Q4HR PRN PRN Reason: Mild Pain (Scale 1-3) Stop: 07/03/19 22:57 Last Admin: 05/26/19 01:59 Dose: 650 mg Acetaminophen (Tylenol) 650 mg PO Q4H PRN PRN Reason: TEMP ABOVE 100 Stop: 07/22/19 11:54 Al Hydrox/Mg Hydrox/Simethicone (Maalox) 30 ml PO Q4H PRN PRN Reason: GI DISTRESS Stop: 07/03/19 22:57 Atorvastatin Calcium (Lipitor) 40 mg PO HS [facility]; Protocol Stop: 07/04/19 20:59 Last Admin: 05/26/19 21:00 Dose: 40 mg Carbidopa/Levodopa (Sinemet 10 Mg-100 Mg) 1 tab PO QID [facility] Stop: 07/04/19 20:59 Last Admin: 05/27/19 17:05 Dose: 1 tab Dextrose (Glutose 40%) 18.75 gm PO PRN PRN PRN Reason: BS Below 70 & tolerate po Stop: 07/04/19 20:24 Divalproex Sodium (Depakote Dr) 500 mg PO BID [facility]; Protocol Stop: 07/06/19 16:59 Last Admin: 05/27/19 17:05 Dose: 500 mg Donepezil HCl (Aricept) 10 mg PO HS [facility] Stop: 07/14/19 20:59 Last Admin: 05/26/19 21:00 Dose: 10 mg Gabapentin (Neurontin) 300 mg PO BID [facility] Stop: 07/05/19 08:59 Last Admin: 05/27/19 17:05 Dose: 300 mg Glucagon (Glucagen) 1 mg IM PRN PRN PRN Reason: BS Below 70 & not tolerate po Stop: 07/04/19 20:24 Insulin Human Lispro (Humalog Insulin Sliding Scale) 0 units SUBQ ACHS [facility]; Protocol Stop: 07/04/19 20:59 Last Admin: 05/27/19 17:20 Dose: Not Given Lorazepam (Ativan) 0.5 mg PO Q4H PRN; Protocol PRN Reason: Anxiety Stop: 07/03/19 22:57 Last Admin: 05/23/19 20:47 Dose: 0.5 mg Magnesium Hydroxide (Milk Of Magnesia) 30 ml PO HS PRN PRN Reason: Constipation Magnesium Oxide (Mag-Oxide) 400 mg PO BID [facility] Stop: 07/05/19 08:59 Last Admin: 05/27/19 17:05 Dose: 400 mg Memantine (Namenda) 10 mg PO BID [facility] Stop: 07/22/19 16:59 Last Admin: 05/27/19 17:05 Dose: 10 mg Metoprolol Tartrate (Lopressor) 25 mg PO BID [facility] Stop: 07/05/19 08:59 Last Admin: 05/27/19 17:09 Dose: 25 mg Multivitamins/Vitamin C (Theragran) 1 tab PO DAILY [facility] Stop: 07/04/19 08:59 Last Admin: 05/27/19 09:30 Dose: 1 tab Pantoprazole Sodium (Protonix) 40 mg PO QDAC [facility] Stop: 07/05/19 07:29 Last Admin: 05/27/19 06:34 Dose: 40 mg Quetiapine Fumarate (Seroquel) 25 mg PO DAILY [facility]; Protocol Stop: 07/11/19 08:59 Last Admin: 05/27/19 09:31 Dose: 25 mg Quetiapine Fumarate (Seroquel) 100 mg PO HS [facility] Stop: 07/24/19 20:59 Last Admin: 05/26/19 21:01 Dose: 100 mg Zolpidem Tartrate (Ambien) 5 mg PO HS PRN PRN Reason: Insomnia Stop: 07/03/19 22:57 Last Admin: 05/26/19 21:17 Dose: 5 mg General: alert, demented HEENT: NC/AT, PERRLA, EOMI, anicteric sclerae, throat clear Neck: Supple, No JVD, No thyromegaly, +2 carotid pulse wo bruit, No LAD, + JVD Lungs: CTAB Cardiovascular: RRR, Normal S1, Normal S2, without murmur Abdomen: soft, non-tender, non-distended Extremities: clear Neurological: no change Internal Medicine Assmt/Plan - Assessment Assessment: 1.DM. 2.CVA. 3.CHRONIC A FIB. 4.PSYCHOSIS - Plan Plan: CONTINUE ON CURRENT MEDICATION AND DIET. Nutritional Asmnt/Malnutr-PDOC - Dietary Evaluation Malnutrition Findings (Please click <Entered> for more info): Nutritional Asmnt/Malnutrition Start: 05/08/19 13: 00 Text: Status: Complete Freq: Protocol: Document 05/08/19 13:00 MARION (Rec: 05/08/19 13:04 MARION [email or web address]) Nutritional Asmnt/Malnutrition Patient General Information Nutritional Screening Moderate Risk Diagnosis Psychosis Pertinent Medical Hx/Surgical Hx A-FIB, CVA with Lt hemiplegia, DM, Dementia, Hyperlipidemia, Parkinsonism Subjective Information Pt is a 68-year-old male admitted on 05/04 d/t agitation and aggressive behavior. Pt is eating an estimated 75% of meals x3 days (average) Per Meal/Nutrition Activity Record -adequate to meet nutritional needs. Recommend adding Cardiac to Diet Rx to limit fats as pt BMI is 45.73 (obese , class III). Pt was asleep at time of visit today, after lunch. HT: 51 WT: 242 LB (110 kg) ABW: 145 LB (65.68 kg) BMI: 45.73 (Obese, class III) GI: WNL, Soft, Non-tender BM: 05/08 x1 I/O: 1100/1 (+1099) Skin: WNL, Intact King: 16 Diet Order: CCHO 60gm Estimated Energy Needs: (Obese , ABW) 8669-3487 kcals (20-25 kcals/ kg) 53-66g Pro (0.8-1.0 g/kg) 6471-7940 ml (25-30 ml/kg) Pt is eating 75% of meals Per Meal/Nutrition Activity Record . Dietary is currently providing an estimated 2100 kcals and 125 gm Pro, per Pt PO intake this is providing an estimated 1575 kcals and 94gm Pro to meet 100% kcal and 100 +% Pro needs- adequate. Current Diet Order/ Nutrition Support CCHO 60gm Pertinent Medications Maalox (PRN), Lipitor, D50w ( PRN), Glutose 40% (PRN), Glucagen (PRN), INS-SS, MOM ( PRN), Mag-Oxide, Theragran, Protonix Pertinent Labs 05/07: A1c 5.8% POC Glucose (Last 24 hours): 79, 117, 94, 125, 109 Nutritional Hx/Data Height 1.55 m Height (Calculated Centimeters) 154.9 Current Weight (lbs) 109.769 kg Weight (Calculated Kilograms) 109.8 Weight (Calculated Grams) 862826.4 [place] Body Weight 112 LB (50.91 kg) % [place] Body Weight 216 Body Mass Index (BMI) 45.7 Weight Status Morbidly Obese GI Symptoms Last BM 05/08 x1 Skin Integrity/Comment: Skin: WNL, Intact King: 16 Current %PO Good (75-100%) Estimated Nutritional Goals BEE in Kcals: Adj wt of IBW Calories/Kcals/Kg 20-25 Kcals Calculated 1020-1839 Protein: Adj wt of IBW Protein g/k.8-1.0 Protein Calculated 53-66 Fluid: ml 1471-1297 ml (25-30 ml/kg) Nutritional Problem 1. Problem Problem Obesity Etiology r/t consistent energy overconsumption Signs/Symptoms: aeb BMI 45.73, obese class III . Malnutrition Related to Morbid Obesity Malnutrition related to morbid obesity BMI> or equal to 40 Query Text:(Any 1 Criteria met) Malnutrition related to morbid obesity Yes Intervention/Recommendation Comments 1. [facility] with [facility] diet as ordered. 2. Recommend adding Cardiac to Diet Rx to limit fats as pt BMI is 45.73 (obese, class III ). Expected Outcomes/Goals Expected Outcomes/Goals 1. PO intake to continue to meet >75% of nutritional needs . 2. Monitor PO intake, wt, nutrition related labs, and skin integrity. 3. Gradual weight loss is ideal. 4. F/U as moderate risk in 3-5 days, 05/11-05/13.
--- NOTE | 2019-05-27 20:08 | Progress Notes ---
DATE: 05/27/2019 SUBJECTIVE: Chart reviewed and the patient interviewed. Also discussed the patient's condition with the staff and reviewed records and labs. The patient seems to be drowsy, but he still had episodes of yelling and screaming. The patient also seems to be preoccupied and is still demanding and restless and asking staff to do different things for him and gets angry when not done. Also, still has issues with communication because of his difficulty hearing. Otherwise, the patient is compliant with taking his medications with no side effects of Depakote, Namenda, or Neurontin or Seroquel except slightly sedated, but he is still agitated. We will continue monitoring behavior and continue to follow up closely. [facility]# [id number]
[2019-05-28] MEDS: Pantoprazole 40 mg EC Tab PO SCH (06:43)
[2019-05-28] MEDS: INSULIN LISPRO SLIDING SCALE 100 UNITS/ML UNIT SUBQ SCH ×4 (06:57→21:00)
[2019-05-28] MEDS: Carbidopa/Levodopa 10/100 mg Tab PO SCH ×4 (08:18→20:56)
[2019-05-28] MEDS: Multivitamin Tab PO SCH (08:18)
[2019-05-28] MEDS: Apixaban 5 MG TABLET PO SCH ×2 (08:21→16:55)
--- NOTE | 2019-05-28 18:52 | Internal Medicine Prog Note ---
Internal Medicine Subjective - Subjective Service Date: 05/28/19 Patient seen and examined:: without staff (HE FEELS WELL) Patient is:: awake, verbal, in bed, talking, confused Per staff patient has:: no adverse event Internal Medicine Objective - Results Recent Labs: Laboratory Last Values POC Glucose 94 MG/DL (70 - 105) 05/28/19 16:28 - Physical Exam Vitals and I&O: Vital Signs Temp 97.3 F 05/28/19 14:00 Pulse 71 05/28/19 16:54 Resp 22 05/28/19 14:00 BP 98/78 05/28/19 16:54 Pulse Ox 98 05/28/19 14:00 Intake & Output 05/27/19 05/28/19 05/28/19 18:59 06:59 18:59 Intake Total 120 Balance 120 Intake: Oral 120 Other: # Voids 3 # Bowel Movements 1 Active Medications: Current Medications Acetaminophen (Tylenol) 650 mg PO Q4HR PRN PRN Reason: Mild Pain (Scale 1-3) Stop: 07/03/19 22:57 Last Admin: 05/26/19 01:59 Dose: 650 mg Acetaminophen (Tylenol) 650 mg PO Q4H PRN PRN Reason: TEMP ABOVE 100 Stop: 07/22/19 11:54 Al Hydrox/Mg Hydrox/Simethicone (Maalox) 30 ml PO Q4H PRN PRN Reason: GI DISTRESS Stop: 07/03/19 22:57 Atorvastatin Calcium (Lipitor) 40 mg PO HS [facility]; Protocol Stop: 07/04/19 20:59 Last Admin: 05/27/19 20:58 Dose: 40 mg Carbidopa/Levodopa (Sinemet 10 Mg-100 Mg) 1 tab PO QID [facility] Stop: 07/04/19 20:59 Last Admin: 05/28/19 16:54 Dose: 1 tab Dextrose (Glutose 40%) 18.75 gm PO PRN PRN PRN Reason: BS Below 70 & tolerate po Stop: 07/04/19 20:24 Divalproex Sodium (Depakote Dr) 500 mg PO BID [facility]; Protocol Stop: 07/06/19 16:59 Last Admin: 05/28/19 16:54 Dose: 500 mg Donepezil HCl (Aricept) 10 mg PO HS [facility] Stop: 07/14/19 20:59 Last Admin: 05/27/19 20:58 Dose: 10 mg Gabapentin (Neurontin) 300 mg PO BID [facility] Stop: 07/05/19 08:59 Last Admin: 05/28/19 16:53 Dose: 300 mg Glucagon (Glucagen) 1 mg IM PRN PRN PRN Reason: BS Below 70 & not tolerate po Stop: 07/04/19 20:24 Insulin Human Lispro (Humalog Insulin Sliding Scale) 0 units SUBQ ACHS [facility]; Protocol Stop: 07/04/19 20:59 Last Admin: 05/28/19 16:55 Dose: Not Given Lorazepam (Ativan) 0.5 mg PO Q4H PRN; Protocol PRN Reason: Anxiety Stop: 07/03/19 22:57 Last Admin: 05/27/19 20:59 Dose: 0.5 mg Magnesium Hydroxide (Milk Of Magnesia) 30 ml PO HS PRN PRN Reason: Constipation Magnesium Oxide (Mag-Oxide) 400 mg PO BID [facility] Stop: 07/05/19 08:59 Last Admin: 05/28/19 16:53 Dose: 400 mg Memantine (Namenda) 10 mg PO BID [facility] Stop: 07/22/19 16:59 Last Admin: 05/28/19 16:54 Dose: 10 mg Metoprolol Tartrate (Lopressor) 25 mg PO BID [facility] Stop: 07/05/19 08:59 Last Admin: 05/28/19 16:54 Dose: Not Given Multivitamins/Vitamin C (Theragran) 1 tab PO DAILY [facility] Stop: 07/04/19 08:59 Last Admin: 05/28/19 08:18 Dose: 1 tab Pantoprazole Sodium (Protonix) 40 mg PO QDAC [facility] Stop: 07/05/19 07:29 Last Admin: 05/28/19 06:43 Dose: 40 mg Quetiapine Fumarate (Seroquel) 25 mg PO DAILY [facility]; Protocol Stop: 07/11/19 08:59 Last Admin: 05/28/19 08:19 Dose: 25 mg Quetiapine Fumarate (Seroquel) 100 mg PO HS [facility] Stop: 07/24/19 20:59 Last Admin: 05/27/19 20:58 Dose: 100 mg Zolpidem Tartrate (Ambien) 5 mg PO HS PRN PRN Reason: Insomnia Stop: 07/03/19 22:57 Last Admin: 05/28/19 00:07 Dose: 5 mg General: alert, demented HEENT: NC/AT, PERRLA, EOMI, anicteric sclerae, throat clear Neck: Supple, No JVD, No thyromegaly, +2 carotid pulse wo bruit, No LAD, + JVD Lungs: CTAB Cardiovascular: RRR, Normal S1, Normal S2, without murmur Abdomen: soft, non-tender, non-distended Extremities: clear Neurological: no change Internal Medicine Assmt/Plan - Assessment Assessment: 1.DM. 2.CVA. 3.CHRONIC A FIB. 4.PSYCHOSIS - Plan Plan: CONTINUE ON CURRENT MEDICATION AND DIET. Nutritional Asmnt/Malnutr-PDOC - Dietary Evaluation Malnutrition Findings (Please click <Entered> for more info): Nutritional Asmnt/Malnutrition Start: 05/08/19 13: 00 Text: Status: Complete Freq: Protocol: Document 05/08/19 13:00 MARION (Rec: 05/08/19 13:04 MARION [email or web address]) Nutritional Asmnt/Malnutrition Patient General Information Nutritional Screening Moderate Risk Diagnosis Psychosis Pertinent Medical Hx/Surgical Hx A-FIB, CVA with Lt hemiplegia, DM, Dementia, Hyperlipidemia, Parkinsonism Subjective Information Pt is a 68-year-old male admitted on 05/04 d/t agitation and aggressive behavior. Pt is eating an estimated 75% of meals x3 days (average) Per Meal/Nutrition Activity Record -adequate to meet nutritional needs. Recommend adding Cardiac to Diet Rx to limit fats as pt BMI is 45.73 (obese , class III). Pt was asleep at time of visit today, after lunch. HT: 51 WT: 242 LB (110 kg) ABW: 145 LB (65.68 kg) BMI: 45.73 (Obese, class III) GI: WNL, Soft, Non-tender BM: 05/08 x1 I/O: 1100/1 (+1099) Skin: WNL, Intact King: 16 Diet Order: CCHO 60gm Estimated Energy Needs: (Obese , ABW) 6693-4783 kcals (20-25 kcals/ kg) 53-66g Pro (0.8-1.0 g/kg) 5302-3844 ml (25-30 ml/kg) Pt is eating 75% of meals Per Meal/Nutrition Activity Record . Dietary is currently providing an estimated 2100 kcals and 125 gm Pro, per Pt PO intake this is providing an estimated 1575 kcals and 94gm Pro to meet 100% kcal and 100 +% Pro needs- adequate. Current Diet Order/ Nutrition Support CCHO 60gm Pertinent Medications Maalox (PRN), Lipitor, D50w ( PRN), Glutose 40% (PRN), Glucagen (PRN), INS-SS, MOM ( PRN), Mag-Oxide, Theragran, Protonix Pertinent Labs 05/07: A1c 5.8% POC Glucose (Last 24 hours): 79, 117, 94, 125, 109 Nutritional Hx/Data Height 1.55 m Height (Calculated Centimeters) 154.9 Current Weight (lbs) 109.769 kg Weight (Calculated Kilograms) 109.8 Weight (Calculated Grams) 060479.4 [place] Body Weight 112 LB (50.91 kg) % [place] Body Weight 216 Body Mass Index (BMI) 45.7 Weight Status Morbidly Obese GI Symptoms Last BM 05/08 x1 Skin Integrity/Comment: Skin: WNL, Intact King: 16 Current %PO Good (75-100%) Estimated Nutritional Goals BEE in Kcals: Adj wt of IBW Calories/Kcals/Kg 20-25 Kcals Calculated 4800-1684 Protein: Adj wt of IBW Protein g/k.8-1.0 Protein Calculated 53-66 Fluid: ml 3583-5759 ml (25-30 ml/kg) Nutritional Problem 1. Problem Problem Obesity Etiology r/t consistent energy overconsumption Signs/Symptoms: aeb BMI 45.73, obese class III . Malnutrition Related to Morbid Obesity Malnutrition related to morbid obesity BMI> or equal to 40 Query Text:(Any 1 Criteria met) Malnutrition related to morbid obesity Yes Intervention/Recommendation Comments 1. Continue with CCHO 60gm diet as ordered. 2. Recommend adding Cardiac to Diet Rx to limit fats as pt BMI is 45.73 (obese, class III ). Expected Outcomes/Goals Expected Outcomes/Goals 1. PO intake to continue to meet >75% of nutritional needs . 2. Monitor PO intake, wt, nutrition related labs, and skin integrity. 3. Gradual weight loss is ideal. 4. F/U as moderate risk in 3-5 days, 05/11-05/13.
--- NOTE | 2019-05-28 21:33 | Progress Notes ---
DATE: 05/28/2019 SUBJECTIVE: The patient in the hospital, still with some yelling and screaming episodes, quiet right now, calm right now, but still impulsive, unpredictable, preoccupied, demanding. The patient is likely approaching his baseline. Medications reviewed. Fair sleep, fair appetite. Still confused. Medications have been adjusted and titrated. ASSESSMENT AND PLAN: We will err on the side of caution, monitor for further 24 hours. [facility]# [id number]
[2019-05-29] MEDS: INSULIN LISPRO SLIDING SCALE 100 UNITS/ML UNIT SUBQ SCH ×4 (06:35→21:41)
[2019-05-29] MEDS: Pantoprazole 40 mg EC Tab PO SCH (06:54)
[2019-05-29] MEDS: Carbidopa/Levodopa 10/100 mg Tab PO SCH ×4 (08:50→20:54)
[2019-05-29] MEDS: Multivitamin Tab PO SCH (08:51)
[2019-05-29] MEDS: Apixaban 5 MG TABLET PO SCH ×2 (09:21→16:09)
--- NOTE | 2019-05-29 16:13 | Discharge Summary ---
DATE OF DISCHARGE: 05/29/2019 JUSTIFICATION FOR HOSPITALIZATION: Unruly behaviors, yelling, screaming. HISTORY OF PRESENT ILLNESS: A 68-year-old male well known to this clinician, sent over from [facility] for unruly behaviors, yelling, agitation. I could not control him there, yelling at the top of his lungs. Staff having a hard time redirecting him. PAST PSYCHIATRIC HISTORY: Admissions in the past. SOCIAL HISTORY: Needing high level of nursing care. PROVISIONAL DIAGNOSES: Mood, unspecified; anxiety, unspecified; dementia as well. HOSPITAL COURSE: After initial assessment, the patient's medical issues were addressed by the primary medical doctor. Medications were adjusted and titrated. He slowly began to improve. Yelling and screaming progressed consistent hard to treat and control symptoms. However, toward the latter end of treatment, he was in better spirits, yelling less, screaming less, no longer agitated or combative, likely at his baseline. CONDITION UPON DISCHARGE: Improved, more redirectable, less screaming, less yelling, no combative behaviors, no agitation, still confused. No SI, no HI, no psychosis. Better impulse control. PROVISIONAL DIAGNOSES: Anxiety, unspecified; mood, unspecified; dementia. MEDICAL: Please see full H and P. PROGNOSIS: The patient follows up with outpatient mental health services and remains compliant with treatment. Prognosis will improve, otherwise guarded. JOB# [id number]
--- NOTE | 2019-05-29 21:08 | Internal Medicine Prog Note ---
Internal Medicine Subjective - Subjective Service Date: 05/29/19 Patient seen and examined:: without staff (HE FEELS WELL) Patient is:: awake, verbal, in bed, talking, confused Per staff patient has:: no adverse event Internal Medicine Objective - Results Recent Labs: Laboratory Last Values POC Glucose 92 MG/DL (70 - 105) 05/29/19 05:57 - Physical Exam Vitals and I&O: Vital Signs Temp 98.1 F 05/29/19 20:06 Pulse 104 05/29/19 20:06 Resp 19 05/29/19 20:06 BP 107/68 05/29/19 20:06 Pulse Ox 96 05/29/19 20:06 Intake & Output 05/29/19 05/29/19 05/30/19 06:59 18:59 06:59 Intake Total 1130 240 Output Total 1 Balance 1130 239 Intake: Oral 1130 240 Output: Urine/Stool Mix 1 Other: # Voids 1 1 # Bowel Movements 1 1 Active Medications: Current Medications Acetaminophen (Tylenol) 650 mg PO Q4HR PRN PRN Reason: Mild Pain (Scale 1-3) Stop: 07/03/19 22:57 Last Admin: 05/26/19 01:59 Dose: 650 mg Acetaminophen (Tylenol) 650 mg PO Q4H PRN PRN Reason: TEMP ABOVE 100 Stop: 07/22/19 11:54 Al Hydrox/Mg Hydrox/Simethicone (Maalox) 30 ml PO Q4H PRN PRN Reason: GI DISTRESS Stop: 07/03/19 22:57 Atorvastatin Calcium (Lipitor) 40 mg PO HS [facility]; Protocol Stop: 07/04/19 20:59 Last Admin: 05/29/19 20:55 Dose: 40 mg Carbidopa/Levodopa (Sinemet 10 Mg-100 Mg) 1 tab PO QID [facility] Stop: 07/04/19 20:59 Last Admin: 05/29/19 20:54 Dose: 1 tab Dextrose (Glutose 40%) 18.75 gm PO PRN PRN PRN Reason: BS Below 70 & tolerate po Stop: 07/04/19 20:24 Divalproex Sodium (Depakote Dr) 500 mg PO BID [facility]; Protocol Stop: 07/06/19 16:59 Last Admin: 05/29/19 16:10 Dose: 500 mg Donepezil HCl (Aricept) 10 mg PO HS [facility] Stop: 07/14/19 20:59 Last Admin: 05/29/19 20:54 Dose: 10 mg Gabapentin (Neurontin) 300 mg PO BID [facility] Stop: 07/05/19 08:59 Last Admin: 05/29/19 16:10 Dose: 300 mg Glucagon (Glucagen) 1 mg IM PRN PRN PRN Reason: BS Below 70 & not tolerate po Stop: 07/04/19 20:24 Insulin Human Lispro (Humalog Insulin Sliding Scale) 0 units SUBQ ACHS [facility]; Protocol Stop: 07/04/19 20:59 Last Admin: 05/29/19 17:24 Dose: Not Given Lorazepam (Ativan) 0.5 mg PO Q4H PRN; Protocol PRN Reason: Anxiety Stop: 07/03/19 22:57 Last Admin: 05/29/19 20:56 Dose: 0.5 mg Magnesium Hydroxide (Milk Of Magnesia) 30 ml PO HS PRN PRN Reason: Constipation Magnesium Oxide (Mag-Oxide) 400 mg PO BID [facility] Stop: 07/05/19 08:59 Last Admin: 05/29/19 16:10 Dose: 400 mg Memantine (Namenda) 10 mg PO BID [facility] Stop: 07/22/19 16:59 Last Admin: 05/29/19 16:10 Dose: 10 mg Metoprolol Tartrate (Lopressor) 25 mg PO BID [facility] Stop: 07/05/19 08:59 Last Admin: 05/29/19 16:10 Dose: 25 mg Multivitamins/Vitamin C (Theragran) 1 tab PO DAILY [facility] Stop: 07/04/19 08:59 Last Admin: 05/29/19 08:51 Dose: 1 tab Pantoprazole Sodium (Protonix) 40 mg PO QDAC [facility] Stop: 07/05/19 07:29 Last Admin: 05/29/19 06:54 Dose: 40 mg Quetiapine Fumarate (Seroquel) 25 mg PO DAILY [facility]; Protocol Stop: 07/11/19 08:59 Last Admin: 05/29/19 08:51 Dose: 25 mg Quetiapine Fumarate (Seroquel) 100 mg PO HS [facility] Stop: 07/24/19 20:59 Last Admin: 05/29/19 20:55 Dose: 100 mg Zolpidem Tartrate (Ambien) 5 mg PO HS PRN PRN Reason: Insomnia Stop: 07/03/19 22:57 Last Admin: 05/28/19 00:07 Dose: 5 mg General: alert, demented HEENT: NC/AT, PERRLA, EOMI, anicteric sclerae, throat clear Neck: Supple, No JVD, No thyromegaly, +2 carotid pulse wo bruit, No LAD, + JVD Lungs: CTAB Cardiovascular: RRR, Normal S1, Normal S2, without murmur Abdomen: soft, non-tender, non-distended Extremities: clear Neurological: no change Internal Medicine Assmt/Plan - Assessment Assessment: 1.DM. 2.CVA. 3.CHRONIC A FIB. 4.PSYCHOSIS - Plan Plan: CONTINUE ON CURRENT MEDICATION AND DIET. Nutritional Asmnt/Malnutr-PDOC - Dietary Evaluation Malnutrition Findings (Please click <Entered> for more info): Nutritional Asmnt/Malnutrition Start: 05/08/19 13: 00 Text: Status: Complete Freq: Protocol: Document 05/08/19 13:00 MARION (Rec: 05/08/19 13:04 MARION [email or web address]) Nutritional Asmnt/Malnutrition Patient General Information Nutritional Screening Moderate Risk Diagnosis Psychosis Pertinent Medical Hx/Surgical Hx A-FIB, CVA with Lt hemiplegia, DM, Dementia, Hyperlipidemia, Parkinsonism Subjective Information Pt is a 68-year-old male admitted on 05/04 d/t agitation and aggressive behavior. Pt is eating an estimated 75% of meals x3 days (average) Per Meal/Nutrition Activity Record -adequate to meet nutritional needs. Recommend adding Cardiac to Diet Rx to limit fats as pt BMI is 45.73 (obese , class III). Pt was asleep at time of visit today, after lunch. HT: 51 WT: 242 LB (110 kg) ABW: 145 LB (65.68 kg) BMI: 45.73 (Obese, class III) GI: WNL, Soft, Non-tender BM: 10 x1 I/O: 1100/1 (+1099) Skin: WNL, Intact King: 16 Diet Order: CCHO 60gm Estimated Energy Needs: (Obese , ABW) 7169-8306 kcals (20-25 kcals/ kg) 53-66g Pro (0.8-1.0 g/kg) 5300-8109 ml (25-30 ml/kg) Pt is eating 75% of meals Per Meal/Nutrition Activity Record . Dietary is currently providing an estimated 2100 kcals and 125 gm Pro, per Pt PO intake this is providing an estimated 1575 kcals and 94gm Pro to meet 100% kcal and 100 +% Pro needs- adequate. Current Diet Order/ Nutrition Support CCHO 60gm Pertinent Medications Maalox (PRN), Lipitor, D50w ( PRN), Glutose 40% (PRN), Glucagen (PRN), INS-SS, MOM ( PRN), Mag-Oxide, Theragran, Protonix Pertinent Labs 05/07: A1c 5.8% POC Glucose (Last 24 hours): 79, 117, 94, 125, 109 Nutritional Hx/Data Height 1.55 m Height (Calculated Centimeters) 154.9 Current Weight (lbs) 109.769 kg Weight (Calculated Kilograms) 109.8 Weight (Calculated Grams) 147729.4 [place] Body Weight 112 LB (50.91 kg) % [place] Weight 216 Body Mass Index (BMI) 45.7 Weight Status Morbidly Obese GI Symptoms Last BM 05/08 x1 Skin Integrity/Comment: Skin: WNL, Intact King: 16 Current %PO Good (75-100%) Estimated Nutritional Goals BEE in Kcals: Adj wt of IBW Calories/Kcals/Kg 20-25 Kcals Calculated 4116-2827 Protein: Adj wt of IBW Protein g/k.8-1.0 Protein Calculated 53-66 Fluid: ml 2953-4475 ml (25-30 ml/kg) Nutritional Problem 1. Problem Problem Obesity Etiology r/t consistent energy overconsumption Signs/Symptoms: aeb BMI 45.73, obese class III . Malnutrition Related to Morbid Obesity Malnutrition related to morbid obesity BMI> or equal to 40 Query Text:(Any 1 Criteria met) Malnutrition related to morbid obesity Yes Intervention/Recommendation Comments 1. Continue with CCHO 60gm diet as ordered. 2. Recommend adding Cardiac to Diet Rx to limit fats as pt BMI is 45.73 (obese, class III ). Expected Outcomes/Goals Expected Outcomes/Goals 1. PO intake to continue to meet >75% of nutritional needs . 2. Monitor PO intake, wt, nutrition related labs, and skin integrity. 3. Gradual weight loss is ideal. 4. F/U as moderate risk in 3-5 days, 05/11-05/13.
[2019-05-30] MEDS: INSULIN LISPRO SLIDING SCALE 100 UNITS/ML UNIT SUBQ SCH ×4 (06:44→21:07)
[2019-05-30] MEDS: Pantoprazole 40 mg EC Tab PO SCH (06:45)
[2019-05-30] MEDS: Apixaban 5 MG TABLET PO SCH ×2 (08:38→17:34)
[2019-05-30] MEDS: Carbidopa/Levodopa 10/100 mg Tab PO SCH ×4 (08:38→21:06)
[2019-05-30] MEDS: Multivitamin Tab PO SCH (08:38)
--- NOTE | 2019-05-30 20:43 | Internal Medicine Prog Note ---
Internal Medicine Subjective - Subjective Service Date: 05/30/19 Patient seen and examined:: without staff (HE DENIES DIARRHEA) Patient is:: awake, verbal, in bed, talking, confused Per staff patient has:: no adverse event Internal Medicine Objective - Results Recent Labs: Laboratory Last Values POC Glucose 92 MG/DL (70 - 105) 05/29/19 05:57 - Physical Exam Vitals and I&O: Vital Signs Temp 98.2 F 05/30/19 14:00 Pulse 89 05/30/19 17:31 Resp 18 05/30/19 14:00 BP 122/72 05/30/19 17:31 Pulse Ox 97 05/30/19 14:00 Intake & Output 05/30/19 05/30/19 05/31/19 06:59 18:59 06:59 Intake Total 240 700 Output Total 1 Balance 239 700 Intake: Oral 240 700 Output: Urine/Stool Mix 1 Other: # Voids 3 3 # Bowel Movements 0 Active Medications: Current Medications Acetaminophen (Tylenol) 650 mg PO Q4HR PRN PRN Reason: Mild Pain (Scale 1-3) Stop: 07/03/19 22:57 Last Admin: 05/26/19 01:59 Dose: 650 mg Acetaminophen (Tylenol) 650 mg PO Q4H PRN PRN Reason: TEMP ABOVE 100 Stop: 07/22/19 11:54 Al Hydrox/Mg Hydrox/Simethicone (Maalox) 30 ml PO Q4H PRN PRN Reason: GI DISTRESS Stop: 07/03/19 22:57 Atorvastatin Calcium (Lipitor) 40 mg PO HS [facility]; Protocol Stop: 07/04/19 20:59 Last Admin: 05/29/19 20:55 Dose: 40 mg Carbidopa/Levodopa (Sinemet 10 Mg-100 Mg) 1 tab PO QID [facility] Stop: 07/04/19 20:59 Last Admin: 05/30/19 17:30 Dose: 1 tab Dextrose (Glutose 40%) 18.75 gm PO PRN PRN PRN Reason: BS Below 70 & tolerate po Stop: 07/04/19 20:24 Divalproex Sodium (Depakote Dr) 500 mg PO BID [facility]; Protocol Stop: 07/06/19 16:59 Last Admin: 05/30/19 17:34 Dose: 500 mg Donepezil HCl (Aricept) 10 mg PO HS [facility] Stop: 07/14/19 20:59 Last Admin: 05/29/19 20:54 Dose: 10 mg Gabapentin (Neurontin) 300 mg PO BID [facility] Stop: 07/05/19 08:59 Last Admin: 05/30/19 17:33 Dose: 300 mg Glucagon (Glucagen) 1 mg IM PRN PRN PRN Reason: BS Below 70 & not tolerate po Stop: 07/04/19 20:24 Insulin Human Lispro (Humalog Insulin Sliding Scale) 0 units SUBQ ACHS [facility]; Protocol Stop: 07/04/19 20:59 Last Admin: 05/30/19 16:30 Dose: Not Given Lorazepam (Ativan) 0.5 mg PO Q4H PRN; Protocol PRN Reason: Anxiety Stop: 07/03/19 22:57 Last Admin: 05/29/19 20:56 Dose: 0.5 mg Magnesium Hydroxide (Milk Of Magnesia) 30 ml PO HS PRN PRN Reason: Constipation Magnesium Oxide (Mag-Oxide) 400 mg PO BID [facility] Stop: 07/05/19 08:59 Last Admin: 05/30/19 17:33 Dose: 400 mg Memantine (Namenda) 10 mg PO BID [facility] Stop: 07/22/19 16:59 Last Admin: 05/30/19 17:34 Dose: 10 mg Metoprolol Tartrate (Lopressor) 25 mg PO BID [facility] Stop: 07/05/19 08:59 Last Admin: 05/30/19 17:31 Dose: 25 mg Multivitamins/Vitamin C (Theragran) 1 tab PO DAILY [facility] Stop: 07/04/19 08:59 Last Admin: 05/30/19 08:38 Dose: 1 tab Pantoprazole Sodium (Protonix) 40 mg PO QDAC [facility] Stop: 07/05/19 07:29 Last Admin: 05/30/19 06:45 Dose: 40 mg Quetiapine Fumarate (Seroquel) 25 mg PO DAILY [facility]; Protocol Stop: 07/11/19 08:59 Last Admin: 05/30/19 08:38 Dose: 25 mg Quetiapine Fumarate (Seroquel) 100 mg PO HS [facility] Stop: 07/24/19 20:59 Last Admin: 05/29/19 20:55 Dose: 100 mg Zolpidem Tartrate (Ambien) 5 mg PO HS PRN PRN Reason: Insomnia Stop: 07/03/19 22:57 Last Admin: 05/29/19 23:47 Dose: 5 mg General: alert, demented HEENT: NC/AT, PERRLA, EOMI, anicteric sclerae, throat clear Neck: Supple, No JVD, No thyromegaly, +2 carotid pulse wo bruit, No LAD, + JVD Lungs: CTAB Cardiovascular: RRR, Normal S1, Normal S2, without murmur Abdomen: soft, non-tender, non-distended Extremities: clear Neurological: no change Internal Medicine Assmt/Plan - Assessment Assessment: 1.DM. 2.CVA. 3.CHRONIC A FIB. 4.PSYCHOSIS - Plan Plan: CONTINUE ON CURRENT MEDICATION AND DIET. Nutritional Asmnt/Malnutr-PDOC - Dietary Evaluation Malnutrition Findings (Please click <Entered> for more info): Nutritional Asmnt/Malnutrition Start: 05/08/19 13: 00 Text: Status: Complete Freq: Protocol: Document 05/08/19 13:00 MARION (Rec: 05/08/19 13:04 MARION [email or web address]) Nutritional Asmnt/Malnutrition Patient General Information Nutritional Screening Moderate Risk Diagnosis Psychosis Pertinent Medical Hx/Surgical Hx A-FIB, CVA with Lt hemiplegia, DM, Dementia, Hyperlipidemia, Parkinsonism Subjective Information Pt is a 68-year-old male admitted on 05/04 d/t agitation and aggressive behavior. Pt is eating an estimated 75% of meals x3 days (average) Per Meal/Nutrition Activity Record -adequate to meet nutritional needs. Recommend adding Cardiac to Diet Rx to limit fats as pt BMI is 45.73 (obese , class III). Pt was asleep at time of visit today, after lunch. HT: 51 WT: 242 LB (110 kg) ABW: 145 LB (65.68 kg) BMI: 45.73 (Obese, class III) GI: WNL, Soft, Non-tender BM: 05/08 x1 I/O: 1100/1 (+1099) Skin: WNL, Intact King: 16 Diet Order: CCHO 60gm Estimated Energy Needs: (Obese , ABW) 1477-0181 kcals (20-25 kcals/ kg) 53-66g Pro (0.8-1.0 g/kg) 0576-3633 ml (25-30 ml/kg) Pt is eating 75% of meals Per Meal/Nutrition Activity Record . Dietary is currently providing an estimated 2100 kcals and 125 gm Pro, per Pt PO intake this is providing an estimated 1575 kcals and 94gm Pro to meet 100% kcal and 100 +% Pro needs- adequate. Current Diet Order/ Nutrition Support CCHO 60gm Pertinent Medications Maalox (PRN), Lipitor, D50w ( PRN), Glutose 40% (PRN), Glucagen (PRN), INS-SS, MOM ( PRN), Mag-Oxide, Theragran, Protonix Pertinent Labs 05/07: A1c 5.8% POC Glucose (Last 24 hours): 79, 117, 94, 125, 109 Nutritional Hx/Data Height 1.55 m Height (Calculated Centimeters) 154.9 Current Weight (lbs) 109.769 kg Weight (Calculated Kilograms) 109.8 Weight (Calculated Grams) 822404.4 [place] Body Weight 112 LB (50.91 kg) % [place] Body Weight 216 Body Mass Index (BMI) 45.7 Weight Status Morbidly Obese GI Symptoms Last BM 05/08 x1 Skin Integrity/Comment: Skin: WNL, Intact King: 16 Current %PO Good (75-100%) Estimated Nutritional Goals BEE in Kcals: Adj wt of IBW Calories/Kcals/Kg 20-25 Kcals Calculated 9695-1747 Protein: Adj wt of IBW Protein g/k.8-1.0 Protein Calculated 53-66 Fluid: ml 7104-0764 ml (25-30 ml/kg) Nutritional Problem 1. Problem Problem Obesity Etiology r/t consistent energy overconsumption Signs/Symptoms: aeb BMI 45.73, obese class III . Malnutrition Related to Morbid Obesity Malnutrition related to morbid obesity BMI> or equal to 40 Query Text:(Any 1 Criteria met) Malnutrition related to morbid obesity Yes Intervention/Recommendation Comments 1. Continue with CCHO 60gm diet as ordered. 2. Recommend adding Cardiac to Diet Rx to limit fats as pt BMI is 45.73 (obese, class III ). Expected Outcomes/Goals Expected Outcomes/Goals 1. PO intake to continue to meet >75% of nutritional needs . 2. Monitor PO intake, wt, nutrition related labs, and skin integrity. 3. Gradual weight loss is ideal. 4. F/U as moderate risk in 3-5 days, 10/4-05/13.
--- NOTE | 2019-05-31 03:51 | Progress Notes ---
DATE: 05/30/2019 The patient was supposed to have left yesterday, apparently not accepted by [facility]. He is pretty confused, has really nowhere to go, cannot take care of his basic needs. It would have been ideal if the [facility] had told this a long time ago so we could have been working on his placement. The patient is calm, likely at his baseline, gravely disabled. Medications were noted. Vitals reviewed. JOB# [id number]
[2019-05-31] MEDS: Pantoprazole 40 mg EC Tab PO SCH (06:36)
[2019-05-31] MEDS: INSULIN LISPRO SLIDING SCALE 100 UNITS/ML UNIT SUBQ SCH ×4 (06:50→21:15)
[2019-05-31] MEDS: Carbidopa/Levodopa 10/100 mg Tab PO SCH ×4 (08:16→21:14)
[2019-05-31] MEDS: Apixaban 5 MG TABLET PO SCH ×2 (08:17→17:33)
[2019-05-31] MEDS: Multivitamin Tab PO SCH (08:17)
--- NOTE | 2019-05-31 19:10 | Internal Medicine Prog Note ---
Internal Medicine Subjective - Subjective Service Date: 05/31/19 Patient seen and examined:: without staff (HE FEELS WELL) Patient is:: awake, verbal, in bed, talking, confused Per staff patient has:: no adverse event Internal Medicine Objective - Results Recent Labs: Laboratory Last Values POC Glucose 92 MG/DL (70 - 105) 05/29/19 05:57 - Physical Exam Vitals and I&O: Vital Signs Temp 97.8 F 05/31/19 14:00 Pulse 101 05/31/19 17:33 Resp 18 05/31/19 14:00 BP 104/66 05/31/19 17:33 Pulse Ox 96 05/31/19 14:00 Intake & Output 05/31/19 05/31/19 06/01/19 06:59 18:59 06:59 Intake Total 120 1200 Balance 120 1200 Intake: Oral 120 1200 Other: # Voids 3 3 # Bowel Movements 0 Active Medications: Current Medications Acetaminophen (Tylenol) 650 mg PO Q4HR PRN PRN Reason: Mild Pain (Scale 1-3) Stop: 07/03/19 22:57 Last Admin: 05/26/19 01:59 Dose: 650 mg Acetaminophen (Tylenol) 650 mg PO Q4H PRN PRN Reason: TEMP ABOVE 100 Stop: 07/22/19 11:54 Al Hydrox/Mg Hydrox/Simethicone (Maalox) 30 ml PO Q4H PRN PRN Reason: GI DISTRESS Stop: 07/03/19 22:57 Atorvastatin Calcium (Lipitor) 40 mg PO HS [facility]; Protocol Stop: 07/04/19 20:59 Last Admin: 05/30/19 21:06 Dose: 40 mg Carbidopa/Levodopa (Sinemet 10 Mg-100 Mg) 1 tab PO QID [facility] Stop: 07/04/19 20:59 Last Admin: 05/31/19 17:34 Dose: 1 tab Dextrose (Glutose 40%) 18.75 gm PO PRN PRN PRN Reason: BS Below 70 & tolerate po Stop: 07/04/19 20:24 Divalproex Sodium (Depakote Dr) 500 mg PO BID [facility]; Protocol Stop: 07/06/19 16:59 Last Admin: 05/31/19 17:33 Dose: 500 mg Donepezil HCl (Aricept) 10 mg PO HS [facility] Stop: 07/14/19 20:59 Last Admin: 05/30/19 21:06 Dose: 10 mg Gabapentin (Neurontin) 300 mg PO BID [facility] Stop: 07/05/19 08:59 Last Admin: 05/31/19 17:34 Dose: 300 mg Glucagon (Glucagen) 1 mg IM PRN PRN PRN Reason: BS Below 70 & not tolerate po Stop: 07/04/19 20:24 Insulin Human Lispro (Humalog Insulin Sliding Scale) 0 units SUBQ ACHS [facility]; Protocol Stop: 07/04/19 20:59 Last Admin: 05/31/19 17:05 Dose: Not Given Lorazepam (Ativan) 0.5 mg PO Q4H PRN; Protocol PRN Reason: Anxiety Stop: 07/03/19 22:57 Last Admin: 05/29/19 20:56 Dose: 0.5 mg Magnesium Hydroxide (Milk Of Magnesia) 30 ml PO HS PRN PRN Reason: Constipation Magnesium Oxide (Mag-Oxide) 400 mg PO BID [facility] Stop: 07/05/19 08:59 Last Admin: 05/31/19 17:33 Dose: 400 mg Memantine (Namenda) 10 mg PO BID [facility] Stop: 07/22/19 16:59 Last Admin: 05/31/19 17:33 Dose: 10 mg Metoprolol Tartrate (Lopressor) 25 mg PO BID [facility] Stop: 07/05/19 08:59 Last Admin: 05/31/19 17:33 Dose: 25 mg Multivitamins/Vitamin C (Theragran) 1 tab PO DAILY [facility] Stop: 07/04/19 08:59 Last Admin: 05/31/19 08:17 Dose: 1 tab Pantoprazole Sodium (Protonix) 40 mg PO QDAC [facility] Stop: 07/05/19 07:29 Last Admin: 05/31/19 06:36 Dose: 40 mg Quetiapine Fumarate (Seroquel) 25 mg PO DAILY [facility]; Protocol Stop: 07/11/19 08:59 Last Admin: 05/31/19 08:16 Dose: 25 mg Quetiapine Fumarate (Seroquel) 100 mg PO HS [facility] Stop: 07/24/19 20:59 Last Admin: 05/30/19 21:08 Dose: 100 mg Zolpidem Tartrate (Ambien) 5 mg PO HS PRN PRN Reason: Insomnia Stop: 07/03/19 22:57 Last Admin: 05/29/19 23:47 Dose: 5 mg General: alert, demented HEENT: NC/AT, PERRLA, EOMI, anicteric sclerae, throat clear Neck: Supple, No JVD, No thyromegaly, +2 carotid pulse wo bruit, No LAD, + JVD Lungs: CTAB Cardiovascular: RRR, Normal S1, Normal S2, without murmur Abdomen: soft, non-tender, non-distended Extremities: clear Neurological: no change Internal Medicine Assmt/Plan - Assessment Assessment: 1.DM. 2.CVA. 3.CHRONIC A FIB. 4.PSYCHOSIS - Plan Plan: CONTINUE ON CURRENT MEDICATION AND DIET. Nutritional Asmnt/Malnutr-PDOC - Dietary Evaluation Malnutrition Findings (Please click <Entered> for more info): Nutritional Asmnt/Malnutrition Start: 05/08/19 13: 00 Text: Status: Complete Freq: Protocol: Document 05/08/19 13:00 MARION (Rec: 05/08/19 13:04 MARION [email or web address]) Nutritional Asmnt/Malnutrition Patient General Information Nutritional Screening Moderate Risk Diagnosis Psychosis Pertinent Medical Hx/Surgical Hx A-FIB, CVA with Lt hemiplegia, DM, Dementia, Hyperlipidemia, Parkinsonism Subjective Information Pt is a 68-year-old male admitted on 05/04 d/t agitation and aggressive behavior. Pt is eating an estimated 75% of meals x3 days (average) Per Meal/Nutrition Activity Record -adequate to meet nutritional needs. Recommend adding Cardiac to Diet Rx to limit fats as pt BMI is 45.73 (obese , class III). Pt was asleep at time of visit today, after lunch. HT: 51 WT: 242 LB (110 kg) ABW: 145 LB (65.68 kg) BMI: 45.73 (Obese, class III) GI: WNL, Soft, Non-tender BM: 05/08 x1 I/O: 1100/1 (+1099) Skin: WNL, Intact King: 16 Diet Order: CCHO 60gm Estimated Energy Needs: (Obese , ABW) 4123-5286 kcals (20-25 kcals/ kg) 53-66g Pro (0.8-1.0 g/kg) 7866-9815 ml (25-30 ml/kg) Pt is eating 75% of meals Per Meal/Nutrition Activity Record . Dietary is currently providing an estimated 2100 kcals and 125 gm Pro, per Pt PO intake this is providing an estimated 1575 kcals and 94gm Pro to meet 100% kcal and 100 +% Pro needs- adequate. Current Diet Order/ Nutrition Support CCHO 60gm Pertinent Medications Maalox (PRN), Lipitor, D50w ( PRN), Glutose 40% (PRN), Glucagen (PRN), INS-SS, MOM ( PRN), Mag-Oxide, Theragran, Protonix Pertinent Labs 05/07: A1c 5.8% POC Glucose (Last 24 hours): 79, 117, 94, 125, 109 Nutritional Hx/Data Height 1.55 m Height (Calculated Centimeters) 154.9 Current Weight (lbs) 109.769 kg Weight (Calculated Kilograms) 109.8 Weight (Calculated Grams) 487474.4 [place] Body Weight 112 LB (50.91 kg) % [place] Body Weight 216 Body Mass Index (BMI) 45.7 Weight Status Morbidly Obese GI Symptoms Last BM 05/08 x1 Skin Integrity/Comment: Skin: WNL, Intact King: 16 Current %PO Good (75-100%) Estimated Nutritional Goals BEE in Kcals: Adj wt of IBW Calories/Kcals/Kg 20-25 Kcals Calculated 5231-8195 Protein: Adj wt of IBW Protein g/k.8-1.0 Protein Calculated 53-66 Fluid: ml 4012-4250 ml (25-30 ml/kg) Nutritional Problem 1. Problem Problem Obesity Etiology r/t consistent energy overconsumption Signs/Symptoms: aeb BMI 45.73, obese class III . Malnutrition Related to Morbid Obesity Malnutrition related to morbid obesity BMI> or equal to 40 Query Text:(Any 1 Criteria met) Malnutrition related to morbid obesity Yes Intervention/Recommendation Comments 1. Continue with CCHO 60gm diet as ordered. 2. Recommend adding Cardiac to Diet Rx to limit fats as pt BMI is 45.73 (obese, class III ). Expected Outcomes/Goals Expected Outcomes/Goals 1. PO intake to continue to meet >75% of nutritional needs . 2. Monitor PO intake, wt, nutrition related labs, and skin integrity. 3. Gradual weight loss is ideal. 4. F/U as moderate risk in 3-5 days, 05/11-05/13.
--- NOTE | 2019-06-01 04:30 | Progress Notes ---
DATE: 05/31/2019 Unable to find placement at this time, gravely disabled, generally calm and cooperative at his baseline. He cannot take care of his basic needs and the [facility]. We are trying to find him another ____. Fair sleep, fair appetite. No combative behaviors. He is still requiring a lot of prompting and redirection. We will continue to monitor. JOB# [id number]
[2019-06-01] MEDS: INSULIN LISPRO SLIDING SCALE 100 UNITS/ML UNIT SUBQ SCH ×4 (06:45→21:17)
[2019-06-01] MEDS: Pantoprazole 40 mg EC Tab PO SCH (06:45)
[2019-06-01] MEDS: Apixaban 5 MG TABLET PO SCH ×2 (09:56→16:58)
[2019-06-01] MEDS: Carbidopa/Levodopa 10/100 mg Tab PO SCH ×4 (09:57→20:57)
[2019-06-01] MEDS: Multivitamin Tab PO SCH (09:57)
--- NOTE | 2019-06-01 15:38 | Internal Medicine Prog Note ---
Internal Medicine Subjective - Subjective Service Date: 06/01/19 Patient seen and examined:: without staff (HE FEELS GOOD) Patient is:: awake, verbal, in bed, talking, confused Per staff patient has:: no adverse event Internal Medicine Objective - Results Recent Labs: Laboratory Last Values POC Glucose 92 MG/DL (70 - 105) 05/29/19 05:57 - Physical Exam Vitals and I&O: Vital Signs Temp 97.7 F 06/01/19 14:00 Pulse 86 06/01/19 14:00 Resp 20 06/01/19 14:00 BP 118/76 06/01/19 14:00 Pulse Ox 98 06/01/19 14:00 Intake & Output 05/31/19 06/01/19 06/01/19 18:59 06:59 18:59 Intake Total 1200 120 Balance 1200 120 Intake: Oral 1200 120 Other: # Voids 3 3 # Bowel Movements 0 Active Medications: Current Medications Acetaminophen (Tylenol) 650 mg PO Q4HR PRN PRN Reason: Mild Pain (Scale 1-3) Stop: 07/03/19 22:57 Last Admin: 05/26/19 01:59 Dose: 650 mg Acetaminophen (Tylenol) 650 mg PO Q4H PRN PRN Reason: TEMP ABOVE 100 Stop: 07/22/19 11:54 Al Hydrox/Mg Hydrox/Simethicone (Maalox) 30 ml PO Q4H PRN PRN Reason: GI DISTRESS Stop: 07/03/19 22:57 Atorvastatin Calcium (Lipitor) 40 mg PO HS [facility]; Protocol Stop: 07/04/19 20:59 Last Admin: 05/31/19 21:14 Dose: 40 mg Carbidopa/Levodopa (Sinemet 10 Mg-100 Mg) 1 tab PO QID [facility] Stop: 07/04/19 20:59 Last Admin: 06/01/19 14:23 Dose: Not Given Dextrose (Glutose 40%) 18.75 gm PO PRN PRN PRN Reason: BS Below 70 & tolerate po Stop: 07/04/19 20:24 Divalproex Sodium (Depakote Dr) 500 mg PO BID [facility]; Protocol Stop: 07/06/19 16:59 Last Admin: 06/01/19 09:57 Dose: Not Given Donepezil HCl (Aricept) 10 mg PO HS [facility] Stop: 07/14/19 20:59 Last Admin: 05/31/19 21:14 Dose: 10 mg Gabapentin (Neurontin) 300 mg PO BID [facility] Stop: 07/05/19 08:59 Last Admin: 06/01/19 09:57 Dose: Not Given Glucagon (Glucagen) 1 mg IM PRN PRN PRN Reason: BS Below 70 & not tolerate po Stop: 07/04/19 20:24 Insulin Human Lispro (Humalog Insulin Sliding Scale) 0 units SUBQ ACHS [facility]; Protocol Stop: 07/04/19 20:59 Last Admin: 06/01/19 11:40 Dose: Not Given Lorazepam (Ativan) 0.5 mg PO Q4H PRN; Protocol PRN Reason: Anxiety Stop: 07/03/19 22:57 Last Admin: 05/29/19 20:56 Dose: 0.5 mg Magnesium Hydroxide (Milk Of Magnesia) 30 ml PO HS PRN PRN Reason: Constipation Magnesium Oxide (Mag-Oxide) 400 mg PO BID [facility] Stop: 07/05/19 08:59 Last Admin: 06/01/19 09:57 Dose: Not Given Memantine (Namenda) 10 mg PO BID [facility] Stop: 07/22/19 16:59 Last Admin: 06/01/19 09:57 Dose: Not Given Metoprolol Tartrate (Lopressor) 25 mg PO BID [facility] Stop: 07/05/19 08:59 Last Admin: 06/01/19 09:57 Dose: Not Given Multivitamins/Vitamin C (Theragran) 1 tab PO DAILY [facility] Stop: 07/04/19 08:59 Last Admin: 06/01/19 09:57 Dose: Not Given Pantoprazole Sodium (Protonix) 40 mg PO QDAC [facility] Stop: 07/05/19 07:29 Last Admin: 06/01/19 06:45 Dose: 40 mg Quetiapine Fumarate (Seroquel) 25 mg PO DAILY [facility]; Protocol Stop: 07/11/19 08:59 Last Admin: 06/01/19 09:57 Dose: Not Given Quetiapine Fumarate (Seroquel) 100 mg PO HS [facility] Stop: 07/24/19 20:59 Last Admin: 05/31/19 21:15 Dose: 100 mg Zolpidem Tartrate (Ambien) 5 mg PO HS PRN PRN Reason: Insomnia Stop: 07/03/19 22:57 Last Admin: 05/29/19 23:47 Dose: 5 mg General: alert, demented HEENT: NC/AT, PERRLA, EOMI, anicteric sclerae, throat clear Neck: Supple, No JVD, No thyromegaly, +2 carotid pulse wo bruit, No LAD, + JVD Lungs: CTAB Cardiovascular: RRR, Normal S1, Normal S2, without murmur Abdomen: soft, non-tender, non-distended Extremities: clear Neurological: no change Internal Medicine Assmt/Plan - Assessment Assessment: 1.DM. 2.CVA. 3.CHRONIC A FIB. 4.PSYCHOSIS - Plan Plan: CONTINUE ON CURRENT MEDICATION AND DIET. Nutritional Asmnt/Malnutr-PDOC - Dietary Evaluation Malnutrition Findings (Please click <Entered> for more info): Nutritional Asmnt/Malnutrition Start: 05/08/19 13: 00 Text: Status: Complete Freq: Protocol: Document 05/08/19 13:00 MARION (Rec: 05/08/19 13:04 MARION [email or web address]) Nutritional Asmnt/Malnutrition Patient General Information Nutritional Screening Moderate Risk Diagnosis Psychosis Pertinent Medical Hx/Surgical Hx A-FIB, CVA with Lt hemiplegia, DM, Dementia, Hyperlipidemia, Parkinsonism Subjective Information Pt is a 68-year-old male admitted on 05/04 d/t agitation and aggressive behavior. Pt is eating an estimated 75% of meals x3 days (average) Per Meal/Nutrition Activity Record -adequate to meet nutritional needs. Recommend adding Cardiac to Diet Rx to limit fats as pt BMI is 45.73 (obese , class III). Pt was asleep at time of visit today, after lunch. HT: 51 WT: 242 LB (110 kg) ABW: 145 LB (65.68 kg) BMI: 45.73 (Obese, class III) GI: WNL, Soft, Non-tender BM: 05/08 x1 I/O: 1100/1 (+1099) Skin: WNL, Intact King: 16 Diet Order: CCHO 60gm Estimated Energy Needs: (Obese , ABW) 3798-8615 kcals (20-25 kcals/ kg) 53-66g Pro (0.8-1.0 g/kg) 4465-4593 ml (25-30 ml/kg) Pt is eating 75% of meals Per Meal/Nutrition Activity Record . Dietary is currently providing an estimated 2100 kcals and 125 gm Pro, per Pt PO intake this is providing an estimated 1575 kcals and 94gm Pro to meet 100% kcal and 100 +% Pro needs- adequate. Current Diet Order/ Nutrition Support CCHO 60gm Pertinent Medications Maalox (PRN), Lipitor, D50w ( PRN), Glutose 40% (PRN), Glucagen (PRN), INS-SS, MOM ( PRN), Mag-Oxide, Theragran, Protonix Pertinent Labs 05/07: A1c 5.8% POC Glucose (Last 24 hours): 79, 117, 94, 125, 109 Nutritional Hx/Data Height 1.55 m Height (Calculated Centimeters) 154.9 Current Weight (lbs) 109.769 kg Weight (Calculated Kilograms) 109.8 Weight (Calculated Grams) 595861.4 [place] Body Weight 112 LB (50.91 kg) % [place] Body Weight 216 Body Mass Index (BMI) 45.7 Weight Status Morbidly Obese GI Symptoms Last BM 05/08 x1 Skin Integrity/Comment: Skin: WNL, Intact King: 16 Current %PO Good (75-100%) Estimated Nutritional Goals BEE in Kcals: Adj wt of IBW Calories/Kcals/Kg 20-25 Kcals Calculated 2537-3244 Protein: Adj wt of IBW Protein g/k.8-1.0 Protein Calculated 53-66 Fluid: ml 2873-0853 ml (25-30 ml/kg) Nutritional Problem 1. Problem Problem Obesity Etiology r/t consistent energy overconsumption Signs/Symptoms: aeb BMI 45.73, obese class III . Malnutrition Related to Morbid Obesity Malnutrition related to morbid obesity BMI> or equal to 40 Query Text:(Any 1 Criteria met) Malnutrition related to morbid obesity Yes Intervention/Recommendation Comments 1. Continue with CCHO 60gm diet as ordered. 2. Recommend adding Cardiac to Diet Rx to limit fats as pt BMI is 45.73 (obese, class III ). Expected Outcomes/Goals Expected Outcomes/Goals 1. PO intake to continue to meet >75% of nutritional needs . 2. Monitor PO intake, wt, nutrition related labs, and skin integrity. 3. Gradual weight loss is ideal. 4. F/U as moderate risk in 3-5 days, 05/11-05/13.
--- NOTE | 2019-06-01 19:13 | Progress Notes ---
DATE: 06/01/2019 SUBJECTIVE: The patient in the hospital, noted to be still with some yelling episodes, but calm at his baseline. We are currently trying to find him a place to go. He is not really able to care for his basic needs at this time. We will consider gravely disabled. PLAN: We will continue to monitor. We are working hard on placement. JOB# [id number]
[2019-06-02] MEDS: INSULIN LISPRO SLIDING SCALE 100 UNITS/ML UNIT SUBQ SCH ×4 (06:43→21:40)
[2019-06-02] MEDS: Pantoprazole 40 mg EC Tab PO SCH (06:44)
--- NOTE | 2019-06-02 06:58 | Progress Notes ---
DATE: 06/02/2019 SUBJECTIVE: The patient in the hospital. Currently pending placement. AO to name. Yells at times. Otherwise, calm, sometimes mumbling to self, irritable, demanding, likely at his baseline. No agitation, no aggressive behaviors. We are trying to help him find a safe discharge plan, can take care of himself. JOB# [id number]
[2019-06-02] MEDS: Carbidopa/Levodopa 10/100 mg Tab PO SCH ×4 (08:52→21:39)
[2019-06-02] MEDS: Apixaban 5 MG TABLET PO SCH ×2 (08:52→17:30)
[2019-06-02] MEDS: Multivitamin Tab PO SCH (08:55)
--- NOTE | 2019-06-02 20:10 | General Progress Note ---
Subjective - Review of Systems Service Date: 06/02/19 Subjective: RESTING COMFORTABLY IN BED NO DISTRESS Objective - Results Recent Labs: Laboratory Last Values POC Glucose 92 MG/DL (70 - 105) 05/29/19 05:57 - Physical Exam Vitals and I&O: Vital Signs Temp 98.7 F 06/02/19 14:00 Pulse 70 06/02/19 17:29 Resp 20 06/02/19 14:00 BP 109/62 06/02/19 17:29 Pulse Ox 96 06/02/19 14:00 Intake & Output 06/02/19 06/02/19 06/03/19 06:59 18:59 06:59 Intake Total 240 1200 Output Total 1 Balance 239 1200 Intake: Oral 240 1200 Output: Urine/Stool Mix 1 Other: # Voids 1 3 # Bowel Movements 1 1 Active Medications: Current Medications Acetaminophen (Tylenol) 650 mg PO Q4HR PRN PRN Reason: Mild Pain (Scale 1-3) Stop: 07/03/19 22:57 Last Admin: 05/26/19 01:59 Dose: 650 mg Acetaminophen (Tylenol) 650 mg PO Q4H PRN PRN Reason: TEMP ABOVE 100 Stop: 07/22/19 11:54 Al Hydrox/Mg Hydrox/Simethicone (Maalox) 30 ml PO Q4H PRN PRN Reason: GI DISTRESS Stop: 07/03/19 22:57 Atorvastatin Calcium (Lipitor) 40 mg PO HS [facility]; Protocol Stop: 07/04/19 20:59 Last Admin: 06/01/19 20:58 Dose: 40 mg Carbidopa/Levodopa (Sinemet 10 Mg-100 Mg) 1 tab PO QID [facility] Stop: 07/04/19 20:59 Last Admin: 06/02/19 17:29 Dose: 1 tab Dextrose (Glutose 40%) 18.75 gm PO PRN PRN PRN Reason: BS Below 70 & tolerate po Stop: 07/04/19 20:24 Divalproex Sodium (Depakote Dr) 500 mg PO BID [facility]; Protocol Stop: 07/06/19 16:59 Last Admin: 06/02/19 17:29 Dose: 500 mg Donepezil HCl (Aricept) 10 mg PO HS [facility] Stop: 07/14/19 20:59 Last Admin: 06/01/19 20:57 Dose: 10 mg Gabapentin (Neurontin) 300 mg PO BID [facility] Stop: 07/05/19 08:59 Last Admin: 06/02/19 17:30 Dose: 300 mg Glucagon (Glucagen) 1 mg IM PRN PRN PRN Reason: BS Below 70 & not tolerate po Stop: 07/04/19 20:24 Insulin Human Lispro (Humalog Insulin Sliding Scale) 0 units SUBQ ACHS [facility]; Protocol Stop: 07/04/19 20:59 Last Admin: 06/02/19 17:30 Dose: Not Given Lorazepam (Ativan) 0.5 mg PO Q4H PRN; Protocol PRN Reason: Anxiety Stop: 07/03/19 22:57 Last Admin: 06/02/19 08:56 Dose: 0.5 mg Magnesium Hydroxide (Milk Of Magnesia) 30 ml PO HS PRN PRN Reason: Constipation Magnesium Oxide (Mag-Oxide) 400 mg PO BID [facility] Stop: 07/05/19 08:59 Last Admin: 06/02/19 17:29 Dose: 400 mg Memantine (Namenda) 10 mg PO BID [facility] Stop: 07/22/19 16:59 Last Admin: 06/02/19 17:30 Dose: 10 mg Metoprolol Tartrate (Lopressor) 25 mg PO BID [facility] Stop: 07/05/19 08:59 Last Admin: 06/02/19 17:29 Dose: 25 mg Multivitamins/Vitamin C (Theragran) 1 tab PO DAILY [facility] Stop: 07/04/19 08:59 Last Admin: 06/02/19 08:55 Dose: 1 tab Pantoprazole Sodium (Protonix) 40 mg PO QDAC [facility] Stop: 07/05/19 07:29 Last Admin: 06/02/19 06:44 Dose: 40 mg Quetiapine Fumarate (Seroquel) 25 mg PO DAILY [facility]; Protocol Stop: 07/11/19 08:59 Last Admin: 06/02/19 08:55 Dose: 25 mg Quetiapine Fumarate (Seroquel) 100 mg PO HS [facility] Stop: 07/24/19 20:59 Last Admin: 06/01/19 20:58 Dose: 100 mg Zolpidem Tartrate (Ambien) 5 mg PO HS PRN PRN Reason: Insomnia Stop: 07/03/19 22:57 Last Admin: 05/29/19 23:47 Dose: 5 mg General: No acute distress HEENT: PERRLA, EOMI Neck: Supple, JVD, Thyromegaly Cardiovascular: Regular rate, Normal S1, Normal S2 Lungs: Clear to auscultation Abdomen: Bowel sounds, Soft Assessment/Plan - Assessment Assessment: DM CVA A.FIB DEMENTIA C DIFF COLITIS - Plan Plan: CONTINUE CURRENT TREATMENT Nutritional Asmnt/Malnutr-PDOC - Dietary Evaluation Malnutrition Findings (Please click <Entered> for more info): Nutritional Asmnt/Malnutrition Start: 05/08/19 13: 00 Text: Status: Complete Freq: Protocol: Document 05/08/19 13:00 ROSA MARIAGOMEZAKANKSHA (Rec: 05/08/19 13:04 ROSA [email or web address] [email or web address]) Nutritional Asmnt/Malnutrition Patient General Information Nutritional Screening Moderate Risk Diagnosis Psychosis Pertinent Medical Hx/Surgical Hx A-FIB, CVA with Lt hemiplegia, DM, Dementia, Hyperlipidemia, Parkinsonism Subjective Information Pt is a 68-year-old male admitted on 05/04 d/t agitation and aggressive behavior. Pt is eating an estimated 75% of meals x3 days (average) Per Meal/Nutrition Activity Record -adequate to meet nutritional needs. Recommend adding Cardiac to Diet Rx to limit fats as pt BMI is 45.73 (obese , class III). Pt was asleep at time of visit today, after lunch. HT: 51 WT: 242 LB (110 kg) ABW: 145 LB (65.68 kg) BMI: 45.73 (Obese, class III) GI: WNL, Soft, Non-tender BM: 10/ x1 I/O: 1100/1 (+1099) Skin: WNL, Intact King: 16 [facility] Estimated Energy Needs: (Obese , ABW) 2076-2449 kcals (20-25 kcals/ kg) 53-66g Pro (0.8-1.0 g/kg) 0969-7090 ml (25-30 ml/kg) Pt is eating 75% of meals Per Meal/Nutrition Activity Record . Dietary is currently providing an estimated 2100 kcals and 125 gm Pro, per Pt PO intake this is providing an estimated 1575 kcals and 94gm Pro to meet 100% kcal and 100 +% Pro needs- adequate. Current Diet Order/ Nutrition Support CCHO 60gm Pertinent Medications Maalox (PRN), Lipitor, D50w ( PRN), Glutose 40% (PRN), Glucagen (PRN), INS-SS, MOM ( PRN), Mag-Oxide, Theragran, Protonix Pertinent Labs 05/07: A1c 5.8% POC Glucose (Last 24 hours): 79, 117, 94, 125, 109 Nutritional Hx/Data Height 1.55 m Height (Calculated Centimeters) 154.9 Current Weight (lbs) 109.769 kg Weight (Calculated Kilograms) 109.8 Weight (Calculated Grams) 865909.4 [place] Body Weight 112 LB (50.91 kg) % [place] Body Weight 216 Body Mass Index (BMI) 45.7 Weight Status Morbidly Obese GI Symptoms Last BM 05/08 x1 Skin Integrity/Comment: Skin: WNL, Intact King: 16 Current %PO Good (75-100%) Estimated Nutritional Goals BEE in Kcals: Adj wt of IBW Calories/Kcals/Kg 20-25 Kcals Calculated 9084-2403 Protein: Adj wt of IBW Protein g/k.8-1.0 Protein Calculated 53-66 Fluid: ml 7428-6301 ml (25-30 ml/kg) Nutritional Problem 1. Problem Problem Obesity Etiology r/t consistent energy overconsumption Signs/Symptoms: aeb BMI 45.73, obese class III . Malnutrition Related to Morbid Obesity Malnutrition related to morbid obesity BMI> or equal to 40 Query Text:(Any 1 Criteria met) Malnutrition related to morbid obesity Yes Intervention/Recommendation Comments 1. Continue with CCHO 60gm diet as ordered. 2. Recommend adding Cardiac to Diet Rx to limit fats as pt BMI is 45.73 (obese, class III ). Expected Outcomes/Goals Expected Outcomes/Goals 1. PO intake to continue to meet >75% of nutritional needs . 2. Monitor PO intake, wt, nutrition related labs, and skin integrity. 3. Gradual weight loss is ideal. 4. F/U as moderate risk in 3-5 days, 05/11-05/13.
[2019-06-03] MEDS: INSULIN LISPRO SLIDING SCALE 100 UNITS/ML UNIT SUBQ SCH ×4 (06:33→21:16)
[2019-06-03] MEDS: Pantoprazole 40 mg EC Tab PO SCH (06:55)
[2019-06-03] MEDS: Multivitamin Tab PO SCH (08:31)
[2019-06-03] MEDS: Carbidopa/Levodopa 10/100 mg Tab PO SCH ×4 (08:31→21:02)
[2019-06-03] MEDS: Apixaban 5 MG TABLET PO SCH ×2 (08:32→16:54)
--- NOTE | 2019-06-03 19:30 | Progress Notes ---
DATE: 06/03/2019 SUBJECTIVE: The patient in the hospital, slept for about 5 hours, one episode of yelling, screaming and likely approaching his baseline. We are trying to find a place to go. [facility] did not want him back. Resting comfortably. Medications were reviewed. Vitals also noted. JOB# [id number]
--- NOTE | 2019-06-03 20:04 | General Progress Note ---
Subjective - Review of Systems Service Date: 06/03/19 Subjective: RESTING COMFORTABLY IN BED NO DISTRESS Objective - Results Recent Labs: Laboratory Last Values POC Glucose 92 MG/DL (70 - 105) 05/29/19 05:57 - Physical Exam Vitals and I&O: Vital Signs Temp 98 F 06/03/19 19:43 Pulse 63 06/03/19 19:43 Resp 19 06/03/19 19:43 BP 113/51 06/03/19 19:43 Pulse Ox 96 06/03/19 19:43 Intake & Output 06/03/19 06/03/19 06/04/19 06:59 18:59 06:59 Intake Total 120 800 120 Output Total 1 Balance 119 800 120 Intake: Oral 120 800 120 Output: Urine/Stool Mix 1 Other: # Voids 1 4 3 # Bowel Movements 1 2 0 Active Medications: Current Medications Acetaminophen (Tylenol) 650 mg PO Q4HR PRN PRN Reason: Mild Pain (Scale 1-3) Stop: 07/03/19 22:57 Last Admin: 05/26/19 01:59 Dose: 650 mg Acetaminophen (Tylenol) 650 mg PO Q4H PRN PRN Reason: TEMP ABOVE 100 Stop: 07/22/19 11:54 Al Hydrox/Mg Hydrox/Simethicone (Maalox) 30 ml PO Q4H PRN PRN Reason: GI DISTRESS Stop: 07/03/19 22:57 Atorvastatin Calcium (Lipitor) 40 mg PO HS [facility]; Protocol Stop: 07/04/19 20:59 Last Admin: 06/02/19 21:39 Dose: 40 mg Carbidopa/Levodopa (Sinemet 10 Mg-100 Mg) 1 tab PO QID [facility] Stop: 07/04/19 20:59 Last Admin: 06/03/19 16:54 Dose: 1 tab Dextrose (Glutose 40%) 18.75 gm PO PRN PRN PRN Reason: BS Below 70 & tolerate po Stop: 07/04/19 20:24 Divalproex Sodium (Depakote Dr) 500 mg PO BID [facility]; Protocol Stop: 07/06/19 16:59 Last Admin: 06/03/19 16:54 Dose: 500 mg Donepezil HCl (Aricept) 10 mg PO HS [facility] Stop: 07/14/19 20:59 Last Admin: 06/02/19 21:40 Dose: 10 mg Gabapentin (Neurontin) 300 mg PO BID [facility] Stop: 07/05/19 08:59 Last Admin: 06/03/19 16:53 Dose: 300 mg Glucagon (Glucagen) 1 mg IM PRN PRN PRN Reason: BS Below 70 & not tolerate po Stop: 07/04/19 20:24 Insulin Human Lispro (Humalog Insulin Sliding Scale) 0 units SUBQ ACHS [facility]; Protocol Stop: 07/04/19 20:59 Last Admin: 06/03/19 17:21 Dose: Not Given Lorazepam (Ativan) 0.5 mg PO Q4H PRN; Protocol PRN Reason: Anxiety Stop: 07/03/19 22:57 Last Admin: 06/02/19 08:56 Dose: 0.5 mg Magnesium Hydroxide (Milk Of Magnesia) 30 ml PO HS PRN PRN Reason: Constipation Magnesium Oxide (Mag-Oxide) 400 mg PO BID [facility] Stop: 07/05/19 08:59 Last Admin: 06/03/19 16:53 Dose: 400 mg Memantine (Namenda) 10 mg PO BID [facility] Stop: 07/22/19 16:59 Last Admin: 06/03/19 16:53 Dose: 10 mg Metoprolol Tartrate (Lopressor) 25 mg PO BID [facility] Stop: 07/05/19 08:59 Last Admin: 06/03/19 16:53 Dose: Not Given Multivitamins/Vitamin C (Theragran) 1 tab PO DAILY [facility] Stop: 07/04/19 08:59 Last Admin: 06/03/19 08:31 Dose: 1 tab Pantoprazole Sodium (Protonix) 40 mg PO QDAC [facility] Stop: 07/05/19 07:29 Last Admin: 06/03/19 06:55 Dose: 40 mg Quetiapine Fumarate (Seroquel) 25 mg PO DAILY [facility]; Protocol Stop: 07/11/19 08:59 Last Admin: 06/03/19 08:32 Dose: 25 mg Quetiapine Fumarate (Seroquel) 100 mg PO HS [facility] Stop: 07/24/19 20:59 Last Admin: 06/02/19 21:40 Dose: 100 mg Zolpidem Tartrate (Ambien) 5 mg PO HS PRN PRN Reason: Insomnia Stop: 07/03/19 22:57 Last Admin: 05/29/19 23:47 Dose: 5 mg General: No acute distress HEENT: PERRLA, EOMI Neck: Supple, JVD, Thyromegaly Cardiovascular: Regular rate, Normal S1, Normal S2 Lungs: Clear to auscultation Abdomen: Bowel sounds, Soft Assessment/Plan - Assessment Assessment: DM CVA A.FIB DEMENTIA C DIFF COLITIS - Plan Plan: CONTINUE CURRENT TREATMENT Nutritional Asmnt/Malnutr-PDOC - Dietary Evaluation Malnutrition Findings (Please click <Entered> for more info): Nutritional Asmnt/Malnutrition Start: 05/08/19 13: 00 Text: Status: Complete Freq: Protocol: Document 05/08/19 13:00 JOEAKANKSHA (Rec: 05/08/19 13:04 MARION [email or web address]) Nutritional Asmnt/Malnutrition Patient General Information Nutritional Screening Moderate Risk Diagnosis Psychosis Pertinent Medical Hx/Surgical Hx A-FIB, CVA with Lt hemiplegia, DM, Dementia, Hyperlipidemia, Parkinsonism Subjective Information Pt is a 68-year-old male admitted on 05/04 d/t agitation and aggressive behavior. Pt is eating an estimated 75% of meals x3 days (average) Per Meal/Nutrition Activity Record -adequate to meet nutritional needs. Recommend adding Cardiac to Diet Rx to limit fats as pt BMI is 45.73 (obese , class III). Pt was asleep at time of visit today, after lunch. HT: 51 WT: 242 LB (110 kg) ABW: 145 LB (65.68 kg) BMI: 45.73 (Obese, class III) GI: WNL, Soft, Non-tender BM: 05/08 x1 I/O: 1100/1 (+1099) Skin: WNL, Intact King: 16 Diet Order: CCHO 60gm Estimated Energy Needs: (Obese , ABW) 3556-3770 kcals (20-25 kcals/ kg) 53-66g Pro (0.8-1.0 g/kg) 4150-2589 ml (25-30 ml/kg) Pt is eating 75% of meals Per Meal/Nutrition Activity Record . Dietary is currently providing an estimated 2100 kcals and 125 gm Pro, per Pt PO intake this is providing an estimated 1575 kcals and 94gm Pro to meet 100% kcal and 100 +% Pro needs- adequate. Current Diet Order/ Nutrition Support CCHO 60gm Pertinent Medications Maalox (PRN), Lipitor, D50w ( PRN), Glutose 40% (PRN), Glucagen (PRN), INS-SS, MOM ( PRN), Mag-Oxide, Theragran, Protonix Pertinent Labs 05/07: A1c 5.8% POC Glucose (Last 24 hours): 79, 117, 94, 125, 109 Nutritional Hx/Data Height 1.55 m Height (Calculated Centimeters) 154.9 Current Weight (lbs) 109.769 kg Weight (Calculated Kilograms) 109.8 Weight (Calculated Grams) 501532.4 [place] Body Weight 112 LB (50.91 kg) % [place] Body Weight 216 Body Mass Index (BMI) 45.7 Weight Status Morbidly Obese GI Symptoms Last BM 05/08 x1 Skin Integrity/Comment: Skin: WNL, Intact King: 16 Current %PO Good (75-100%) Estimated Nutritional Goals BEE in Kcals: Adj wt of IBW Calories/Kcals/Kg 20-25 Kcals Calculated 0887-8962 Protein: Adj wt of IBW Protein g/k.8-1.0 Protein Calculated 53-66 Fluid: ml 6341-5850 ml (25-30 ml/kg) Nutritional Problem 1. Problem Problem Obesity Etiology r/t consistent energy overconsumption Signs/Symptoms: aeb BMI 45.73, obese class III . Malnutrition Related to Morbid Obesity Malnutrition related to morbid obesity BMI> or equal to 40 Query Text:(Any 1 Criteria met) Malnutrition related to morbid obesity Yes Intervention/Recommendation Comments 1. Continue with CCHO 60gm diet as ordered. 2. Recommend adding Cardiac to Diet Rx to limit fats as pt BMI is 45.73 (obese, class III ). Expected Outcomes/Goals Expected Outcomes/Goals 1. PO intake to continue to meet >75% of nutritional needs . 2. Monitor PO intake, wt, nutrition related labs, and skin integrity. 3. Gradual weight loss is ideal. 4. F/U as moderate risk in 3-5 days, 05/11-05/13.
[2019-06-04] MEDS: INSULIN LISPRO SLIDING SCALE 100 UNITS/ML UNIT SUBQ SCH ×4 (06:35→21:26)
[2019-06-04] MEDS: Pantoprazole 40 mg EC Tab PO SCH (06:37)
[2019-06-04] MEDS: Apixaban 5 MG TABLET PO SCH ×2 (08:33→16:47)
[2019-06-04] MEDS: Carbidopa/Levodopa 10/100 mg Tab PO SCH ×4 (08:33→21:25)
[2019-06-04] MEDS: Multivitamin Tab PO SCH (08:36)
--- NOTE | 2019-06-04 17:34 | Internal Medicine Prog Note ---
Internal Medicine Subjective - Subjective Service Date: 06/04/19 Patient seen and examined:: without staff (HE FEELS WELL) Patient is:: awake, verbal, in bed, talking, confused Per staff patient has:: no adverse event Internal Medicine Objective - Results Recent Labs: Laboratory Last Values POC Glucose 92 MG/DL (70 - 105) 05/29/19 05:57 - Physical Exam Vitals and I&O: Vital Signs Temp 96.4 F 06/04/19 14:45 Pulse 73 06/04/19 16:47 Resp 18 06/04/19 14:45 BP 117/70 06/04/19 16:47 Pulse Ox 94 06/04/19 14:45 Intake & Output 06/03/19 06/04/19 06/04/19 18:59 06:59 18:59 Intake Total 800 120 Balance 800 120 Intake: Oral 800 120 Other: # Voids 4 3 # Bowel Movements 2 0 Active Medications: Current Medications Acetaminophen (Tylenol) 650 mg PO Q4HR PRN PRN Reason: Mild Pain (Scale 1-3) Stop: 07/03/19 22:57 Last Admin: 05/26/19 01:59 Dose: 650 mg Acetaminophen (Tylenol) 650 mg PO Q4H PRN PRN Reason: TEMP ABOVE 100 Stop: 07/22/19 11:54 Al Hydrox/Mg Hydrox/Simethicone (Maalox) 30 ml PO Q4H PRN PRN Reason: GI DISTRESS Stop: 07/03/19 22:57 Atorvastatin Calcium (Lipitor) 40 mg PO HS [facility]; Protocol Stop: 07/04/19 20:59 Last Admin: 06/03/19 21:02 Dose: 40 mg Carbidopa/Levodopa (Sinemet 10 Mg-100 Mg) 1 tab PO QID [facility] Stop: 07/04/19 20:59 Last Admin: 06/04/19 16:47 Dose: 1 tab Dextrose (Glutose 40%) 18.75 gm PO PRN PRN PRN Reason: BS Below 70 & tolerate po Stop: 07/04/19 20:24 Divalproex Sodium (Depakote Dr) 500 mg PO BID [facility]; Protocol Stop: 07/06/19 16:59 Last Admin: 06/04/19 16:47 Dose: 500 mg Donepezil HCl (Aricept) 10 mg PO HS [facility] Stop: 07/14/19 20:59 Last Admin: 06/03/19 21:02 Dose: 10 mg Gabapentin (Neurontin) 300 mg PO BID [facility] Stop: 07/05/19 08:59 Last Admin: 06/04/19 16:47 Dose: 300 mg Glucagon (Glucagen) 1 mg IM PRN PRN PRN Reason: BS Below 70 & not tolerate po Stop: 07/04/19 20:24 Insulin Human Lispro (Humalog Insulin Sliding Scale) 0 units SUBQ ACHS [facility]; Protocol Stop: 07/04/19 20:59 Last Admin: 06/04/19 16:46 Dose: Not Given Lorazepam (Ativan) 0.5 mg PO Q4H PRN; Protocol PRN Reason: Anxiety Stop: 07/03/19 22:57 Last Admin: 06/03/19 23:21 Dose: 0.5 mg Magnesium Hydroxide (Milk Of Magnesia) 30 ml PO HS PRN PRN Reason: Constipation Magnesium Oxide (Mag-Oxide) 400 mg PO BID [facility] Stop: 07/05/19 08:59 Last Admin: 06/04/19 16:47 Dose: 400 mg Memantine (Namenda) 10 mg PO BID [facility] Stop: 07/22/19 16:59 Last Admin: 06/04/19 16:47 Dose: 10 mg Metoprolol Tartrate (Lopressor) 25 mg PO BID [facility] Stop: 07/05/19 08:59 Last Admin: 06/04/19 16:47 Dose: 25 mg Multivitamins/Vitamin C (Theragran) 1 tab PO DAILY [facility] Stop: 07/04/19 08:59 Last Admin: 06/04/19 08:36 Dose: 1 tab Pantoprazole Sodium (Protonix) 40 mg PO QDAC [facility] Stop: 07/05/19 07:29 Last Admin: 06/04/19 06:37 Dose: 40 mg Quetiapine Fumarate (Seroquel) 25 mg PO DAILY [facility]; Protocol Stop: 07/11/19 08:59 Last Admin: 06/04/19 08:36 Dose: 25 mg Quetiapine Fumarate (Seroquel) 100 mg PO HS [facility] Stop: 07/24/19 20:59 Last Admin: 06/03/19 21:02 Dose: 100 mg Zolpidem Tartrate (Ambien) 5 mg PO HS PRN PRN Reason: Insomnia Stop: 07/03/19 22:57 Last Admin: 06/03/19 21:02 Dose: 5 mg General: alert, demented HEENT: NC/AT, PERRLA, EOMI, anicteric sclerae, throat clear Neck: Supple, No JVD, No thyromegaly, +2 carotid pulse wo bruit, No LAD, + JVD Lungs: CTAB Cardiovascular: RRR, Normal S1, Normal S2, without murmur Abdomen: soft, non-tender, non-distended Extremities: clear Neurological: no change Internal Medicine Assmt/Plan - Assessment Assessment: 1.DM. 2.CVA. 3.CHRONIC A FIB. 4.PSYCHOSIS - Plan Plan: CONTINUE ON CURRENT MEDICATION AND DIET. Nutritional Asmnt/Malnutr-PDOC - Dietary Evaluation Malnutrition Findings (Please click <Entered> for more info): Nutritional Asmnt/Malnutrition Start: 05/08/19 13: 00 Text: Status: Complete Freq: Protocol: Document 05/08/19 13:00 MARION (Rec: 05/08/19 13:04 MARION [email or web address]) Nutritional Asmnt/Malnutrition Patient General Information Nutritional Screening Moderate Risk Diagnosis Psychosis Pertinent Medical Hx/Surgical Hx A-FIB, CVA with Lt hemiplegia, DM, Dementia, Hyperlipidemia, Parkinsonism Subjective Information Pt is a 68-year-old male admitted on 05/04 d/t agitation and aggressive behavior. Pt is eating an estimated 75% of meals x3 days (average) Per Meal/Nutrition Activity Record -adequate to meet nutritional needs. Recommend adding Cardiac to Diet Rx to limit fats as pt BMI is 45.73 (obese , class III). Pt was asleep at time of visit today, after lunch. HT: 51 WT: 242 LB (110 kg) ABW: 145 LB (65.68 kg) BMI: 45.73 (Obese, class III) GI: WNL, Soft, Non-tender BM: 05/08 x1 I/O: 1100/1 (+1099) Skin: WNL, Intact King: 16 Diet Order: CCHO 60gm Estimated Energy Needs: (Obese , ABW) 3014-1299 kcals (20-25 kcals/ kg) 53-66g Pro (0.8-1.0 g/kg) 6628-7157 ml (25-30 ml/kg) Pt is eating 75% of meals Per Meal/Nutrition Activity Record . Dietary is currently providing an estimated 2100 kcals and 125 gm Pro, per Pt PO intake this is providing an estimated 1575 kcals and 94gm Pro to meet 100% kcal and 100 +% Pro needs- adequate. Current Diet Order/ Nutrition Support CCHO 60gm Pertinent Medications Maalox (PRN), Lipitor, D50w ( PRN), Glutose 40% (PRN), Glucagen (PRN), INS-SS, MOM ( PRN), Mag-Oxide, Theragran, Protonix Pertinent Labs 05/07: A1c 5.8% POC Glucose (Last 24 hours): 79, 117, 94, 125, 109 Nutritional Hx/Data Height 1.55 m Height (Calculated Centimeters) 154.9 Current Weight (lbs) 109.769 kg Weight (Calculated Kilograms) 109.8 Weight (Calculated Grams) 430011.4 [place] Body Weight 112 LB (50.91 kg) % [place] Body Weight 216 Body Mass Index (BMI) 45.7 Weight Status Morbidly Obese GI Symptoms Last BM 05/08 x1 Skin Integrity/Comment: Skin: WNL, Intact King: 16 Current %PO Good (75-100%) Estimated Nutritional Goals BEE in Kcals: Adj wt of IBW Calories/Kcals/Kg 20-25 Kcals Calculated 6398-4417 Protein: Adj wt of IBW Protein g/k.8-1.0 Protein Calculated 53-66 Fluid: ml 5621-3130 ml (25-30 ml/kg) Nutritional Problem 1. Problem Problem Obesity Etiology r/t consistent energy overconsumption Signs/Symptoms: aeb BMI 45.73, obese class III . Malnutrition Related to Morbid Obesity Malnutrition related to morbid obesity BMI> or equal to 40 Query Text:(Any 1 Criteria met) Malnutrition related to morbid obesity Yes Intervention/Recommendation Comments 1. Continue with CCHO 60gm diet as ordered. 2. Recommend adding Cardiac to Diet Rx to limit fats as pt BMI is 45.73 (obese, class III ). Expected Outcomes/Goals Expected Outcomes/Goals 1. PO intake to continue to meet >75% of nutritional needs . 2. Monitor PO intake, wt, nutrition related labs, and skin integrity. 3. Gradual weight loss is ideal. 4. F/U as moderate risk in 3-5 days, 05/11-05/13.
--- NOTE | 2019-06-04 19:09 | Progress Notes ---
DATE: 06/04/2019 SUBJECTIVE: The patient in the hospital currently pending placement, still with some yelling episodes, but a lot less fewer and far between, more redirectable, currently at baseline. He is unfortunately too impoverished to take care of his basic needs and we are trying to help him with placements. PLAN: We will continue to monitor closely, titrate and adjust medications as tolerated. Vitals were noted. Discussed with staff. JOB# [id number]
[2019-06-05] MEDS: INSULIN LISPRO SLIDING SCALE 100 UNITS/ML UNIT SUBQ SCH ×4 (06:46→20:58)
[2019-06-05] MEDS: Pantoprazole 40 mg EC Tab PO SCH (06:46)
[2019-06-05] MEDS: Apixaban 5 MG TABLET PO SCH ×2 (08:22→16:24)
[2019-06-05] MEDS: Carbidopa/Levodopa 10/100 mg Tab PO SCH ×4 (08:23→20:58)
[2019-06-05] MEDS: Multivitamin Tab PO SCH (08:23)
--- NOTE | 2019-06-05 20:24 | Internal Medicine Prog Note ---
Internal Medicine Subjective - Subjective Service Date: 06/05/19 Patient seen and examined:: without staff (HE FEELS GOOD) Patient is:: awake, verbal, in bed, talking, confused Per staff patient has:: no adverse event Internal Medicine Objective - Results Recent Labs: Laboratory Last Values POC Glucose 92 MG/DL (70 - 105) 05/29/19 05:57 - Physical Exam Vitals and I&O: Vital Signs Temp 96.9 F 06/05/19 14:00 Pulse 64 06/05/19 16:25 Resp 22 06/05/19 14:00 BP 144/82 06/05/19 16:25 Pulse Ox 92 06/05/19 14:00 Intake & Output 06/05/19 06/05/19 06/06/19 06:59 18:59 06:59 Intake Total 360 Output Total 1 Balance 359 Intake: Oral 360 Output: Urine/Stool Mix 1 Other: # Voids 2 3 # Bowel Movements 1 2 Active Medications: Current Medications Acetaminophen (Tylenol) 650 mg PO Q4HR PRN PRN Reason: Mild Pain (Scale 1-3) Stop: 07/03/19 22:57 Last Admin: 05/26/19 01:59 Dose: 650 mg Acetaminophen (Tylenol) 650 mg PO Q4H PRN PRN Reason: TEMP ABOVE 100 Stop: 07/22/19 11:54 Al Hydrox/Mg Hydrox/Simethicone (Maalox) 30 ml PO Q4H PRN PRN Reason: GI DISTRESS Stop: 07/03/19 22:57 Atorvastatin Calcium (Lipitor) 40 mg PO HS [facility]; Protocol Stop: 07/04/19 20:59 Last Admin: 06/04/19 21:25 Dose: 40 mg Carbidopa/Levodopa (Sinemet 10 Mg-100 Mg) 1 tab PO QID [facility] Stop: 07/04/19 20:59 Last Admin: 06/05/19 16:24 Dose: 1 tab Dextrose (Glutose 40%) 18.75 gm PO PRN PRN PRN Reason: BS Below 70 & tolerate po Stop: 07/04/19 20:24 Divalproex Sodium (Depakote Dr) 500 mg PO BID [facility]; Protocol Stop: 07/06/19 16:59 Last Admin: 06/05/19 16:24 Dose: 500 mg Donepezil HCl (Aricept) 10 mg PO HS [facility] Stop: 07/14/19 20:59 Last Admin: 06/04/19 21:25 Dose: 10 mg Gabapentin (Neurontin) 300 mg PO BID [facility] Stop: 07/05/19 08:59 Last Admin: 06/05/19 16:24 Dose: 300 mg Glucagon (Glucagen) 1 mg IM PRN PRN PRN Reason: BS Below 70 & not tolerate po Stop: 07/04/19 20:24 Insulin Human Lispro (Humalog Insulin Sliding Scale) 0 units SUBQ ACHS [facility]; Protocol Stop: 07/04/19 20:59 Last Admin: 06/05/19 16:24 Dose: Not Given Lorazepam (Ativan) 0.5 mg PO Q4H PRN; Protocol PRN Reason: Anxiety Stop: 07/03/19 22:57 Last Admin: 06/03/19 23:21 Dose: 0.5 mg Magnesium Hydroxide (Milk Of Magnesia) 30 ml PO HS PRN PRN Reason: Constipation Magnesium Oxide (Mag-Oxide) 400 mg PO BID [facility] Stop: 07/05/19 08:59 Last Admin: 06/05/19 16:24 Dose: 400 mg Memantine (Namenda) 10 mg PO BID [facility] Stop: 07/22/19 16:59 Last Admin: 06/05/19 16:25 Dose: 10 mg Metoprolol Tartrate (Lopressor) 25 mg PO BID [facility] Stop: 07/05/19 08:59 Last Admin: 06/05/19 16:25 Dose: 25 mg Multivitamins/Vitamin C (Theragran) 1 tab PO DAILY [facility] Stop: 07/04/19 08:59 Last Admin: 06/05/19 08:23 Dose: 1 tab Quetiapine Fumarate (Seroquel) 25 mg PO DAILY [facility]; Protocol Stop: 07/11/19 08:59 Last Admin: 06/05/19 08:23 Dose: 25 mg Quetiapine Fumarate (Seroquel) 100 mg PO HS [facility] Stop: 07/24/19 20:59 Last Admin: 06/04/19 21:26 Dose: 100 mg Zolpidem Tartrate (Ambien) 5 mg PO HS PRN PRN Reason: Insomnia Stop: 07/03/19 22:57 Last Admin: 06/03/19 21:02 Dose: 5 mg General: alert, demented HEENT: NC/AT, PERRLA, EOMI, anicteric sclerae, throat clear Neck: Supple, No JVD, No thyromegaly, +2 carotid pulse wo bruit, No LAD, + JVD Lungs: CTAB Cardiovascular: RRR, Normal S1, Normal S2, without murmur Abdomen: soft, non-tender, non-distended Extremities: clear Neurological: no change Internal Medicine Assmt/Plan - Assessment Assessment: 1.DM. 2.CVA. 3.CHRONIC A FIB. 4.PSYCHOSIS - Plan Plan: CONTINUE ON CURRENT MEDICATION AND DIET. Nutritional Asmnt/Malnutr-PDOC - Dietary Evaluation Malnutrition Findings (Please click <Entered> for more info): Nutritional Asmnt/Malnutrition Start: 05/08/19 13: 00 Text: Status: Complete Freq: Protocol: Document 05/08/19 13:00 MARION (Rec: 05/08/19 13:04 MARION [email or web address]) Nutritional Asmnt/Malnutrition Patient General Information Nutritional Screening Moderate Risk Diagnosis Psychosis Pertinent Medical Hx/Surgical Hx A-FIB, CVA with Lt hemiplegia, DM, Dementia, Hyperlipidemia, Parkinsonism Subjective Information Pt is a 68-year-old male admitted on 05/04 d/t agitation and aggressive behavior. Pt is eating an estimated 75% of meals x3 days (average) Per Meal/Nutrition Activity Record -adequate to meet nutritional needs. Recommend adding Cardiac to Diet Rx to limit fats as pt BMI is 45.73 (obese , class III). Pt was asleep at time of visit today, after lunch. HT: 51 WT: 242 LB (110 kg) ABW: 145 LB (65.68 kg) BMI: 45.73 (Obese, class III) GI: WNL, Soft, Non-tender BM: 05/08 x1 I/O: 1100/1 (+1099) Skin: WNL, Intact King: 16 Diet Order: CCHO 60gm Estimated Energy Needs: (Obese , ABW) 1088-3479 kcals (20-25 kcals/ kg) 53-66g Pro (0.8-1.0 g/kg) 1050-7156 ml (25-30 ml/kg) Pt is eating 75% of meals Per Meal/Nutrition Activity Record . Dietary is currently providing an estimated 2100 kcals and 125 gm Pro, per Pt PO intake this is providing an estimated 1575 kcals and 94gm Pro to meet 100% kcal and 100 +% Pro needs- adequate. Current Diet Order/ Nutrition Support CCHO 60gm Pertinent Medications Maalox (PRN), Lipitor, D50w ( PRN), Glutose 40% (PRN), Glucagen (PRN), INS-SS, MOM ( PRN), Mag-Oxide, Theragran, Protonix Pertinent Labs 05/07: A1c 5.8% POC Glucose (Last 24 hours): 79, 117, 94, 125, 109 Nutritional Hx/Data Height 1.55 m Height (Calculated Centimeters) 154.9 Current Weight (lbs) 109.769 kg Weight (Calculated Kilograms) 109.8 Weight (Calculated Grams) 690638.4 [place] Body Weight 112 LB (50.91 kg) % [place] Body Weight 216 Body Mass Index (BMI) 45.7 Weight Status Morbidly Obese GI Symptoms Last BM 05/08 x1 Skin Integrity/Comment: Skin: WNL, Intact King: 16 Current %PO Good (75-100%) Estimated Nutritional Goals BEE in Kcals: Adj wt of IBW Calories/Kcals/Kg 20-25 Kcals Calculated 8612-2253 Protein: Adj wt of IBW Protein g/k.8-1.0 Protein Calculated 53-66 Fluid: ml 7813-3920 ml (25-30 ml/kg) Nutritional Problem 1. Problem Problem Obesity Etiology r/t consistent energy overconsumption Signs/Symptoms: aeb BMI 45.73, obese class III . Malnutrition Related to Morbid Obesity Malnutrition related to morbid obesity BMI> or equal to 40 Query Text:(Any 1 Criteria met) Malnutrition related to morbid obesity Yes Intervention/Recommendation Comments 1. Continue with [facility] diet as ordered. 2. Recommend adding Cardiac to Diet Rx to limit fats as pt BMI is 45.73 (obese, class III ). Expected Outcomes/Goals Expected Outcomes/Goals 1. PO intake to continue to meet >75% of nutritional needs . 2. Monitor PO intake, wt, nutrition related labs, and skin integrity. 3. Gradual weight loss is ideal. 4. F/U as moderate risk in 3-5 days, 05/11-05/13.
--- NOTE | 2019-06-05 21:05 | Progress Notes ---
DATE: 06/05/2019 The patient in the hospital, confused, disoriented. We are trying to place him somewhere. We may have to send him back to [facility]. We are trying to find him alternative placement. Otherwise, calm, less screaming episodes. Vitals were reviewed. Medications were reviewed, likely at his baseline. JOB# [id number]
[2019-06-06] MEDS: INSULIN LISPRO SLIDING SCALE 100 UNITS/ML UNIT SUBQ SCH ×2 (06:35→11:38)
[2019-06-06] MEDS: Carbidopa/Levodopa 10/100 mg Tab PO SCH ×2 (09:08→13:00)
[2019-06-06] MEDS: Multivitamin Tab PO SCH (09:08)
--- NOTE | 2019-06-06 22:25 | Progress Notes ---
DATE: 06/06/2019 SUBJECTIVE: The patient is currently in the hospital. We are attempting to send him to a care home today, likely at his baseline. He is confused, disoriented, very few yelling episodes. No combative behaviors, no evidence of dangerousness. Medications were noted. Disengaged awake, alert. No SI, no HI. We will attempt to discharge today. JOB# [id number]
== END 2019-06-06 16:00 | DRG 885 ==
LOC: GERO 18:55
PROVIDERS: ADMIT Psychiatry & Neurology Psychiatry; ATTEND Psychiatry & Neurology Psychiatry
DX: F29 Unspecified psychosis not due to a substance or known physiological condition (principal); F03.91 Unspecified dementia, unspecified severity, with behavioral disturbance; G81.94 Hemiplegia, unspecified affecting left nondominant side; I48.20 Chronic atrial fibrillation, unspecified; A04.72 Enterocolitis due to Clostridium difficile, not specified as recurrent; E11.9 Type 2 diabetes mellitus without complications; G20 Parkinson's disease; E78.5 Hyperlipidemia, unspecified
CPT/HCPCS: 82948-90; 83036-90; J3370; X3401; Z7610